=== PATIENT | female | born 1930 | race Caucasian/White ===

== ENCOUNTER 2016-08-01 19:11 | Emergency (ER) | payer MEDICARE, OTHER ==
[~2016-08-01] VITALS: Ht 165.1 cm; Wt 73.6 kg
[~2016-08-01 19:11] MED LIST: ACET325T51 PO; ASPI-973 PO; CHOL10008 PO; CITA10TA9 PO; CLOP75TA28 PO; COD1CAPS16 PO; FE F PO; GABA-502 PO; HYDR-3740 PO; HYDR-3939 PO; HYDR50TA3 PO; ISOS10TA8 PO; METO25TA6 PO; MULT-666 PO; NITR0.4T SL; PANT40TA3 PO; POLY17PO2 PO; SCOP1PAT TRANSDERM; VITA600C3 PO
[2016-08-01 19:24] VITALS: BP 223/87; PULSE 71; RESP 16; O2SAT 96
--- NOTE | 2016-08-01 20:16 | ED.REPORT ---
HPI-General Illness Date of Service Aug 01, 2016 ED Provider: Yifan Null MD 86 year old female with a history of HTN presents to the ER referred by Dr. Virgil Ovalle accompanied by her and daughter due to elevated blood pressure noted at her 1 year-checkup appointment today status post left carotid endarterectomy. She also reports 6 months of headache. Patient denies vision changes, numbness/tingling/weakness, slurred speech, LOC, chest pain, and SOB. Daughter reports recent head trauma status post ground level fall in the shower two days ago. She takes ASA and Plavix. Nursing Notes Stated Complaint: HIGH BLOOD PRESSURE Chief Complaint: General Complaint Nursing Notes Reviewed: Yes Allergies: Coded Allergies: lisinopril (Unverified Allergy, Mild, extremity aching, 10/22/15) pravastatin (Verified Allergy, Mild, extremity aching, 10/22/15) Cephalosporins (Verified Allergy, Unknown, 10/22/15) Penicillins (Verified Allergy, Unknown, 10/22/15) TAPE (Verified Allergy, Unknown, 10/22/15) amlodipine (Unverified Allergy, Unknown, 10/22/15) diltiazem (Unverified Allergy, Unknown, 10/22/15) losartan (Verified Allergy, Unknown, 10/22/15) nifedipine (Verified Allergy, Unknown, 10/22/15) olmesartan medoxomil (Unverified Allergy, Unknown, 10/22/15) trazodone (Verified Allergy, Unknown, 10/22/15) Contrast Media (Unverified Adverse Reaction, Intermediate, fainting, ) has taken dye when given "something beforehand" codeine (Verified Adverse Reaction, Intermediate, Nausea,Vomiting, 10/22/15 ) hydromorphone (Verified Adverse Reaction, Mild, CONFUSION, ANXIETY, RESTLESSNESS, 10/22/15) Scheduled Aspirin (Aspirin) 81 Mg Tablet 81 MG PO DAILY Cholecalciferol (Vitamin D3) (Vitamin D3) 1,000 Unit Tab.chew 1,000 UNIT PO DAILY Citalopram (Citalopram) 10 Mg Tablet 10 MG PO DAILY Clopidogrel (Clopidogrel) 75 Mg Tablet 75 MG PO DAILY Fe Fumarate/Liver Ext/Bcomp&C (Liver with Iron Tablet) 1 Each Tablet 2 EACH PO DAILY Gabapentin (Gabapentin) 300 Mg Capsule 600 MG PO TID Hydralazine (Hydralazine) 25 Mg Tablet 25 MG PO TID Hydrochlorothiazide (Hydrochlorothiazide) 50 Mg Tablet 50 MG PO DAILY Isosorbide MN (Isosorbide MN) 10 Mg Tablet 20 MG PO TID Metoprolol Tartrate (Metoprolol Tartrate) 25 Mg Tablet 25 MG PO BID Multivitamin (Once Daily) 1 Each Tablet 1 EACH PO DAILY Pantoprazole DR (Pantoprazole DR) 40 Mg Tablet.dr 40 MG PO DAILY Vit A & D3 in Cod Liver Oil (Cod Liver Oil Softgel) 1 Each Capsule 1 EACH PO DAILY Vitamin E Acetate (Vitamin E) 600 Unit Capsule 1,200 UNIT PO DAILY Scheduled PRN Acetaminophen (Acetaminophen) 325 Mg Tablet 325 MG PO DAILY PRN PRN For Pain Hydrocodone-Acetaminophen 10-325 mg (Hydrocodone-Acetaminophen 10-325 mg) 1 Each Tablet 1 TABLET PO Q6H PRN PRN For Pain Nitroglycerin SL (Nitrostat) 0.4 Mg Tablet 0.4 MG SL Q5MIN PRN PRN For Chest Pain Polyethylene Glycol 3350 (Polyethylene Glycol 3350) 17 Gm Powd.pack 1 PACKET PO DAILY PRN PRN For Constipation Scopolamine (Transderm-Scop) 1 Each Patch.td72 1 EACH TRANSDERM q72 hours PRN PRN For Nausea General Time Seen by MD: 20:15 Chief Complaint Other (Elevated Blood Pressure) Hx Obtained From: Patient, Spouse, Daughter Arrived By: Walk-in Sudden in Onset?: No Onset Occurred: Onset unknown Associated with: Reports: Headache, Denies: Chest pain, Loss of consciousness, Numb extremities, Shortness of breath, Weak extremity, Weakness Context Related History: Reports Diabetes mellitus Similar Sx Previous: No Past Medical History Past Medical History Notes: Admit in June 2015 for CP/weakness, cardiac w/u negative Past Medical History Significant peripheral vascular disease (patient status post angiography and possible angioplasty in 2008, reportedly complicated by large retroperitoneal hematoma and temporary shock) Carotid stenosis h/o gout H/o esophageal spasms for which she takes occassional nitroglyerin. Reports: Diabetes mellitus, Hypertension Past Surgical History Benign neck mass removed in April 2015 Cardiac cath October 2013 with no occlusive obstructive disease Left carotid endarterectomy at [facility] Colectomy in 1994 for diverticulitis Cholecystectomy Hysterectomy Bladder sling in 1999 Back surgery 2004 Appendectomy 1944 Ectopic status post oophorectomy in 1952 Thyroid surgery Reports: Carotid endarterectomy Family History noncontributory Smoking History Never Smoker Social History Alcohol Use: Denies alcohol use Drug Use: Denies drug use Other Social History: Good social support, , Local resident Ambulatory Status Independent Review of Systems Full Review of Systems Respiratory: Denies: Non-productive cough, Shortness of breath Cardiovascular: Denies: Chest pain Neurologic: Reports: Headache, Denies: Change LOC, Dizziness, Focal weakness, Numbness, Slurred speech, Unable to speak, Vision change, Weakness Complete sys rev & neg: except as marked. Physical Exam Vital Signs Vital Signs Date Time Temp Pulse Resp B/P Pulse Ox O2 Delivery O2 Flow Rate FiO2 08/02/16 00:15 71 18 196/119 96 Room Air 08/01/16 23:28 77 20 250/107 97 Room Air 08/01/16 21:17 185/76 08/01/16 19:24 36.8 71 16 223/87 96 Room Air Initial VS: Reviewed Head / Eyes: Atraumatic, Normocephalic Neck: Supple, Non-tender, Full range of motion Respiratory: Breath sounds normal, Clear to auscultation, No respiratory distress Cardiovascular: Regular rate & rhythm, Heart sounds normal, Intact distal pulses Abdomen / GI: Soft, Non-tender, No guarding, No rebound, No distention Extremities: Vascular intact, Neuro intact, No swelling, No tenderness Skin: Warm, Dry, No cyanosis Neurologic: Alert, Oriented, Nonfocal General/Constitutional: Awake, Alert, Well developed, Well nourished Interpretation & Diagnostics Lab Results Interpretation Result Diagram: 08/01/16204708/01/162047 Test 08/01/16 20:48 White Blood Count 4.3th/mm3 (3.8-10.1) Red Blood Count 4.04mil/mm3 (3.90-5.20) Hemoglobin 13.4g/dL (12.0-15.6) Hematocrit 40.6% (35.0-46.0) Mean Corpuscular Volume 100.5fL (81-100) Mean Corpuscular Hemoglobin 33.2pg (27.0-35.0) Mean Corpuscular Hemoglobin Concent 33.0% (32.0-37.0) Red Cell Distribution Width 12.6% (12.3-15.4) Platelet Count 177bil/L (150-400) Neutrophils (%) (Auto) 61.6% (40-74) Lymphocytes (%) (Auto) 24.2% (14-46) Monocytes (%) (Auto) 10.5% (4-12) Eosinophils (%) (Auto) 3.0% (0-5) Basophils (%) (Auto) 0.5% (0-3) Sodium Level 142mEq/L (134-144) Potassium Level 3.7mEq/L (3.5-5.2) Chloride Level 102mEq/L (97-108) Carbon Dioxide Level 25mmol/L (18-29) Blood Urea Nitrogen 28mg/dL (8-27) Creatinine 0.67mg/dL (0.57-1.00) Estimat Glomerular Filtration Rate 120mL/min (>59) Glucose Level 128mg/dL (60-99) Calcium Level 9.2mg/dL (8.5-10.1) Magnesium Level 1.9mg/dL (1.6-2.6) Total Bilirubin 0.2mg/dL (0.0-1.2) Aspartate Amino Transf (AST/SGOT) 28U/L (0-50) Alanine Aminotransferase (ALT/SGPT) 16U/L (0-32) Alkaline Phosphatase 58U/L (25-165) Troponin T 0.010ug/L (0.0-0.011) Total Protein 7.0g/dL (6.4-8.4) Albumin 4.4g/dL (3.4-5.0) Hold Ron Top Tube Received (Received) ECG Interpretation ECG Interpretation: Sinus rhythm, rate 72 Normal axis Normal intervals BOrderline ST elevation isolated to v2 When compared to ECG 10/22/2015 St elevation in lead 16 is more pronounced Time: 22:00 Interpreted by: ED physician X-Ray Chest Interpretation Chest Xray Interpretation: IMPRESSION: No acute cardiopulmonary disease. Dictated by: Yonatan Mims M.D. on 08/01/2016 at 20:56 Approved by: Yonatan Mims M.D. on 08/01/2016 at 20:57 View: Portable, 1 view Interpretation / Wet Read by: Interpret - Radiologist CT Head Interpretation IMPRESSION: No acute intracranial abnormalities. Moderate periventricular and deep white matter chronic small vessel ischemic change. Dictated by: Yonatan Mims M.D. on 08/01/2016 at 21:35 Approved by: Yonatan Mims M.D. on 08/01/2016 at 21:39 Study: Head CT no contrast Interpretation / Wet Read by: Interpret - Radiologist Re-Eval/Medical Decision Med Decision/Clinical Course Patient is an 86-year-old female with a history of hypertension on multiple antihypertensive medications including metoprolol and hydralazine and presents the emergency department sent in by vascular surgeon due to elevated blood pressure. Upon arrival the patient is hypertensive with a systolic blood pressure of 220 though reports feeling generally symptom-free. EKG was obtained interpreted by myself as documented above. Of note there are no acute significant ischemic changes. CXR: Obtained, reviewed and interpreted by myself shows no evidence of acute infiltrates, effusions or pneumothorax. Cardiac and mediastinal silhouette normal. No bony or soft tissue abnormalities. CT scan of the head does demonstrated no acute intracranial process. Laboratory studies were notable as below: CBC normal Chemistry normal Upon repeat examination the patient had improvement in her blood pressure into the 180s though shortly thereafter patient became significantly hypertensive with a blood pressure in the 250s. She remained completely asymptomatic. Given the degree of the patient's hypertension I opted to administer 20 mg of IV labetalol for the improvement in her blood pressure. The patient had missed her evening blood pressure medications which were administered here in the emergency department. While the patient is quite hypertensive she has no evidence of end organ damage or ischemia. I do not see that the patient's presentation at this time is consistent with hypertensive emergency and is most likely consistent with missing her evening blood pressure medications though she likely requires further titration of her blood pressure medications. At this time, the patient' s blood pressure has improved significantly and I feel that she is appropriate for discharge home. She will take all of her prescribed blood pressure medications and keep a log of her blood pressures. She will return immediately for any signs or symptoms suggestive of hypertensive emergency and these were reviewed in detail. She will follow-up first thing next week with her primary care physician to discuss blood pressure management. She was discharged in good condition. Follow-up and return precautions were reviewed in detail and she verbalizes understanding and agreement with the plan. Source of Hx: Old records Time of Eval: 23:10 Re-Evaluation/Progress Note: Discussed lab and radiology results and plan to discharge. Patient is amenable to the plan. Return precautions given. All other questions addressed. Counseled Regarding: Diagnosis, Lab results, Need for follow-up, When/why to return to ED Discharge & Departure Primary Impression: Hypertensive urgency Additional Impressions: Noncompliance with medication regimen Headache Headache type: unspecified Headache chronicity pattern: unspecified pattern Intractability: not intractable Qualified Code: R51 - Headache Disposition: Home Discharge Condition All VS Reviewed: Yes Condition: Stable Patient Instructions: Chronic Hypertension (DC) Additional Instructions: Thank you for seeking care at emergency room. It is difficult for us to make definitive diagnoses in the ED but we believe that you are experiencing symptoms related to your elevated blood pressure. Our primary goal today in the ED was to evaluate you for any life-threatening conditions. Your evaluation was reassuring. Keep a record of your blood pressure for the next few weeks. You should follow-up with your primary doctor next week. You should return to the ED immediately if you develop headache, blurred vision , chest pain, shortness of breath, or any other concerning signs or symptoms. Thank you for letting us partake in your care today. Referrals: Lopez Avilez DO (PCP) Skylar Attestation Portions of this note were transcribed by Kali Palacios. I, Dr. Null, personally performed the history, physical exam and medical decision-making; I reviewed and confirmed the accuracy of the information in the transcribed note. Signed by: Skylar Collins, 08/01/2016 and 23:27 copies to: Lopez Avilez Beck O MD Aug 01, 2016 20:16 KALI PALACIOS Aug 01, 2016 21:12
--- NOTE | 2016-08-01 20:57 | DRSVH ---
PROCEDURE: X-RAY CHEST ONE VIEW, PORTABLE ([id number]) INDICATIONS: 86 year-old female with chest pain. TECHNIQUE: One view of the chest was acquired. COMPARISON: [facility], CR, XR CHEST 1VW (PORTABLE), 10/22/2015, 10:31. [facility], CR, XR CHEST 1VW (PORTABLE), 06/24/2015, 20:13. [facility], CR, CHEST 1VW (PORTAB LE), 11/22/2013, 11:00. FINDINGS: Surgical changes and devices: None. Lungs and pleura: No pleural effusions or pneumothorax. Lungs are clear. Mediastinum: Mediastinal contours appear normal. Heart size is normal. There is aortic atheroscler osis. Bones and chest wall: No suspicious bony lesions. Overlying soft tissues appear unremarkable. IMPRESSION: No acute cardiopulmonary disease. Dictated by: Yonatan Mims M.D. on 08/01/2016 at 20:56 Approved by: Yonatan Mims M.D. on 08/01/2016 at 20:57
[2016-08-01 21:10] LABS: BASOPHILS % (AUTO) 0.5 % (0-3); MONOCYTES % (AUTO) 10.5 % (4-12); Mean Corpuscular Hemoglobin 33.2 pg (27.0-35.0); Mean Corpuscular Volume 100.5 fL (81-100); NEUTROPHILS % (AUTO) 61.6 % (40-74); Platelet Count 177 bil/L (150-400)
[2016-08-01 21:17] VITALS: BP 185/76
[2016-08-01 21:35] LABS: TROPONIN T 0.01 ug/L (0.0-0.011)
--- NOTE | 2016-08-01 21:40 | DRSVH ---
PROCEDURE: CT BRAIN WITHOUT CONTRAST ([id number]) INDICATIONS: 86 year-old female with headache after fall 2 days ago. TECHNIQUE: Noncontrast 4.5 mm thick angled axial sections acquired from the foramen magnum to the vertex, with c oronal reformats. COMPARISON: [facility], CT, CT BRAIN WO CON, 10/22/2015, 11:06. FINDINGS: Image quality: Excellent. CSF spaces: Basal cisterns are patent. No extra-axial fluid collections. The ventricles are symmet madeline in size and shape. Brain: No intracranial bleeds or masses. There are moderate periventricular and deep white matter c hronic small vessel ischemic changes. There is intracranial internal carotid artery atherosclerosis. Skull and face: Calvarium and visualized facial bones appear intact, without suspicious lesions. Sinuses: Visualized sinuses and mastoids are clear, status post bilateral functional endoscopic sinu s surgeries. IMPRESSION: No acute intracranial abnormalities. Moderate periventricular and deep white matter chron ic small vessel ischemic change. Dictated by: Yonatan Mims M.D. on 08/01/2016 at 21:35 Approved by: Yonatan Mims M.D. on 08/01/2016 at 21:39
[2016-08-01 21:46] LABS: Magnesium 1.9 mg/dL (1.6-2.6)
[2016-08-01] MEDS ORDERED: Labetalol 5 mg/mL 4 mL Inj IVPUSH ONE (23:25)
[2016-08-01] MEDS ORDERED: MeTOProlol XL 25 mg ER24 Tablet PO ONE (23:25)
[2016-08-01 23:28] VITALS: BP 250/107; PULSE 77; RESP 20; O2SAT 97
[2016-08-02 00:15] VITALS: BP 196/119; PULSE 71; RESP 18; O2SAT 96
== END 2016-08-02 00:15 | disposition home or self-care (01) ==
LOC: SED 19:11
DX: I10 Essential (primary) hypertension (principal); R51 Headache; Z91.19 Patient's noncompliance with other medical treatment and regimen; E11.9 Type 2 diabetes mellitus without complications; Z79.82 Long term (current) use of aspirin; Z90.710 Acquired absence of both cervix and uterus; Z88.0 Allergy status to penicillin; Z88.1 Allergy status to other antibiotic agents; Z88.5 Allergy status to narcotic agent; Z88.8 Allergy status to other drugs, medicaments and biological substances

== ENCOUNTER 2016-08-02 12:58 | Emergency (ER) | payer MEDICARE, OTHER ==
[2016-08-02 13:02] VITALS: BP 224/79; PULSE 78; RESP 20; O2SAT 97
--- NOTE | 2016-08-02 13:06 | ED.REPORT ---
HPI-Chest Pain 40 and Over Date of Service Aug 02, 2016 ED Provider: Otoniel Contreras MD Patient is an 86 year old female who presents to the ED via EMS complaining of chest pressure onset 4 hours ago. Associated symptoms include headache. When she took her blood pressure at home it was 238/113. She denies SOB, blurry vision, speech changes, weakness, numbness, or any other symptoms. She was given nitro and aspirin en route by medics. She was seen in the emergency department last night when she was seen by Dr. Null for hypertension. Nursing Notes Stated Complaint: CHEST PRESSURE Chief Complaint: General Complaint Nursing Notes Reviewed: Yes Allergies: Coded Allergies: lisinopril (Unverified Allergy, Mild, extremity aching, 08/02/16) pravastatin (Verified Allergy, Mild, extremity aching, 08/02/16) Cephalosporins (Verified Allergy, Unknown, 08/02/16) Penicillins (Verified Allergy, Unknown, 08/02/16) TAPE (Verified Allergy, Unknown, 08/02/16) amlodipine (Unverified Allergy, Unknown, 08/02/16) diltiazem (Unverified Allergy, Unknown, 08/02/16) losartan (Verified Allergy, Unknown, 08/02/16) nifedipine (Verified Allergy, Unknown, 08/02/16) olmesartan medoxomil (Unverified Allergy, Unknown, 08/02/16) trazodone (Verified Allergy, Unknown, 08/02/16) Contrast Media (Unverified Adverse Reaction, Intermediate, fainting, ) has taken dye when given "something beforehand" codeine (Verified Adverse Reaction, Intermediate, Nausea,Vomiting, 08/02/16) hydromorphone (Verified Adverse Reaction, Mild, CONFUSION, ANXIETY, RESTLESSNESS, 08/02/16) Scheduled Aspirin (Aspirin) 81 Mg Tablet 81 MG PO DAILY Cholecalciferol (Vitamin D3) (Vitamin D3) 1,000 Unit Tab.chew 1,000 UNIT PO DAILY Citalopram (Citalopram) 10 Mg Tablet 10 MG PO DAILY Clopidogrel (Clopidogrel) 75 Mg Tablet 75 MG PO DAILY Fe Fumarate/Liver Ext/Bcomp&C (Liver with Iron Tablet) 1 Each Tablet 2 EACH PO DAILY Gabapentin (Gabapentin) 300 Mg Capsule 600 MG PO TID Hydralazine (Hydralazine) 25 Mg Tablet 25 MG PO TID Hydrochlorothiazide (Hydrochlorothiazide) 50 Mg Tablet 50 MG PO DAILY Isosorbide MN (Isosorbide MN) 10 Mg Tablet 20 MG PO TID Metoprolol Tartrate (Metoprolol Tartrate) 25 Mg Tablet 25 MG PO BID Multivitamin (Once Daily) 1 Each Tablet 1 EACH PO DAILY Pantoprazole DR (Pantoprazole DR) 40 Mg Tablet.dr 40 MG PO DAILY Vit A & D3 in Cod Liver Oil (Cod Liver Oil Softgel) 1 Each Capsule 1 EACH PO DAILY Vitamin E Acetate (Vitamin E) 600 Unit Capsule 1,200 UNIT PO DAILY Scheduled PRN Acetaminophen (Acetaminophen) 325 Mg Tablet 325 MG PO DAILY PRN PRN For Pain Hydrocodone-Acetaminophen 10-325 mg (Hydrocodone-Acetaminophen 10-325 mg) 1 Each Tablet 1 TABLET PO Q6H PRN PRN For Pain Nitroglycerin SL (Nitrostat) 0.4 Mg Tablet 0.4 MG SL Q5MIN PRN PRN For Chest Pain Polyethylene Glycol 3350 (Polyethylene Glycol 3350) 17 Gm Powd.pack 1 PACKET PO DAILY PRN PRN For Constipation Scopolamine (Transderm-Scop) 1 Each Patch.td72 1 EACH TRANSDERM q72 hours PRN PRN For Nausea General Time Seen by MD: 13:04 Chief Complaint Chest pressure Hx Obtained From: Patient, Other family... Arrived By: Ambulance Sudden in Onset?: Yes Onset Occurred: 1 - 4 hours ago Recent Healthcare: Recent doctor visit Risk Factors )( CAD Risk Stratification Diabetes mellitus HypertensionNo Hyperlipidemia, No Smoking Risk factors reviewed )( TAD Risk Stratification HypertensionNo High intensity wt lifting, No Risk factors reviewed )( PE Risk Stratification No , No Previous DVT, No Previous PE, No Surgery Last 60 Days Risk factors reviewed Past Medical History Past Medical History Notes: Admit in June 2015 for CP/weakness, cardiac w/u negative Past Medical History Significant peripheral vascular disease (patient status post angiography and possible angioplasty in 2008, reportedly complicated by large retroperitoneal hematoma and temporary shock) Carotid stenosis h/o gout H/o esophageal spasms for which she takes occassional nitroglyerin. Reports: Diabetes mellitus, Hypertension Past Surgical History Benign neck mass removed in April 2015 Cardiac cath October 2013 with no occlusive obstructive disease Left carotid endarterectomy at [facility] Colectomy in 1994 for diverticulitis Cholecystectomy Hysterectomy Bladder sling in 1999 Back surgery 2005 Appendectomy 1945 Ectopic status post oophorectomy in 1951 Thyroid surgery Reports: Carotid endarterectomy Family History noncontributory Smoking History Never Smoker Social History Alcohol Use: Denies alcohol use Drug Use: Denies drug use Other Social History: Good social support, , Local resident Ambulatory Status Independent Review of Systems Respiratory: Denies: Shortness of breath Cardiovascular: Reports: Chest pain (Pressure ) Neurologic: Reports: Headache, Denies: Numbness, Slurred speech, Weakness Complete sys rev & neg: except as marked. Eyes: Denies: Blurred bilateral Physical Exam Initial Vital Signs Vital Signs (First) Date Time Temp Pulse Resp B/P Pulse Ox O2 Delivery O2 Flow Rate FiO2 08/02/16 13:02 37.1 78 20 224/79 97 Room Air Initial VS: Reviewed Head / Eyes: Atraumatic, Normocephalic Skin: Warm Neurologic: Alert, Oriented, Nonfocal Psychiatric: Mood/affect normal, Behavior normal, Normal thought content General/Constitutional: Awake, Alert, Well developed Respiratory / Chest: Breath sounds NL, Breath sounds = bilat, No respiratory distress Heart Sounds / Murmur: Positive: Murmur present... faint holosystolic murmur at left upper border Abdomen: Soft, Non-tender Neurologic: Oriented X3, Speech NL, CN II - XII intact Interpretation & Diagnostics Lab Results Interpretation Result Diagram: 08/02/16 1343 08/02/16 1343 Test 08/02/16 13:43 White Blood Count 4.9th/mm3 (3.8-10.1) Red Blood Count 4.15mil/mm3 (3.90-5.20) Hemoglobin 13.3g/dL (12.0-15.6) Hematocrit 41.2% (35.0-46.0) Mean Corpuscular Volume 99.3fL (81-100) Mean Corpuscular Hemoglobin 32.0pg (27.0-35.0) Mean Corpuscular Hemoglobin Concent 32.3% (32.0-37.0) Red Cell Distribution Width 12.7% (12.3-15.4) Platelet Count 168bil/L (150-400) Neutrophils (%) (Auto) 68.3% (40-74) Lymphocytes (%) (Auto) 21.3% (14-46) Monocytes (%) (Auto) 7.8% (4-12) Eosinophils (%) (Auto) 2.0% (0-5) Basophils (%) (Auto) 0.4% (0-3) Sodium Level 139mEq/L (134-144) Potassium Level 3.9mEq/L (3.5-5.2) Chloride Level 100mEq/L (97-108) Carbon Dioxide Level 22mmol/L (18-29) Blood Urea Nitrogen 19mg/dL (8-27) Creatinine 0.56mg/dL (0.57-1.00) Estimat Glomerular Filtration Rate 147mL/min (>59) Glucose Level 139mg/dL (60-99) Calcium Level 9.5mg/dL (8.5-10.1) Magnesium Level 1.7mg/dL (1.6-2.6) Total Bilirubin 0.5mg/dL (0.0-1.2) Aspartate Amino Transf (AST/SGOT) 28U/L (0-50) Alanine Aminotransferase (ALT/SGPT) 15U/L (0-32) Alkaline Phosphatase 50U/L (25-165) Troponin T < 0.010ug/L (0.0-0.011) Total Protein 6.6g/dL (6.4-8.4) Albumin 4.2g/dL (3.4-5.0) Hold Ron Top Tube Received (Received) ECG Interpretation ECG Interpretation: Sinus rate 69 LVH Q waves in V1-v3 unchanged from old Time: 13:21 Interpreted by: ED physician X-Ray Chest Interpretation Chest Xray Interpretation: IMPRESSION: No acute process. Dictated by: Gosia Levin M.D. on 08/02/2016 at 14:50 Approved by: Gosia Levin M.D. on 08/02/2016 at 14:50 View: Portable, 1 view Interpretation / Wet Read by: Interpret - Radiologist Re-Eval/Medical Decision Med Decision/Clinical Course 86-year-old female history of hypertension presenting because of elevated blood pressure. She reports she took it at home and it was systolic 200s. She was seen for hypertensive urgency last night and discharged home. She reports a headache earlier today. He also reports an episode of chest tightness this morning. EKG no signs ischemia. Troponins are negative 6 hours after episode. Her blood pressure initially was systolic 220s. She was given 1 dose of hydralazine 10 mg and her blood pressure improved to 130 systolic over 80s. Her headache resolved with Tylenol prior to getting any blood pressure intervention. No signs of hypertensive emergency. No signs of stroke. Normal neurological exam. I discussed with patient that we may admit her for observation patient requests to go home. She will follow up with her primary doctor on Thursday. I did tell her she may increase her hydralazine dose from 25 mg to 50 mg for blood pressure is elevated tomorrow. Parameters given. She denies return immediately should she develop any headache, visual changes, chest pain, shortness breath, neurological deficits or any other new or worsening symptoms. She agrees with plan. Time of Eval: 15:00 Re-Evaluation/Progress Note: Rechecked patient. Discussed lab and imaging results. Discussed plan for discharge. Patient understands and agrees with plan. All questions addressed at this time. Counseled Regarding: Diagnosis, Lab results, Need for follow-up, When/why to return to ED Discharge & Departure Primary Impression: Hypertensive urgency Disposition: Home Discharge Condition All VS Reviewed: Yes Condition: Improved Additional Instructions: Thank you for entrusting us with your care today. Your labs and imaging results are reassuring. Please follow up with your primary care provider on Thursday. Please increase your Hydralazine to 25 mg, 4 times a day (or take 50 mg to replace one of your 25 mg doses) tomorrow if you notice your systolic blood pressure is over 200 or your diastolic is over 100. Return to the emergency department if you experience any new or worsening symptoms including headache, difficulty speaking or swallowing, weakness, numbness, tingling, chest pain, difficulty breathing, or vision changes. Referrals: Lopez Avilez DO (PCP) Scribe Attestation Portions of this note were transcribed by Trent Shoemaker. I, Dr. Contreras personally performed the history, physical exam and medical decision-making; I reviewed and confirmed the accuracy of the information in the transcribed note. Signed by: Trent Shoemaker 08/02/16, 1511 copies to: Lopez Avilez Ben M MD Aug 02, 2016 13:06 TRENT SHOEMAKER Aug 02, 2016 13:58
[2016-08-02] MEDS ORDERED: hydrALAZINE 20 mg/mL Inj IV ONE (13:55)
[2016-08-02 14:16] LABS: BASOPHILS % (AUTO) 0.4 % (0-3); MONOCYTES % (AUTO) 7.8 % (4-12); Mean Corpuscular Volume 99.3 fL (81-100); NEUTROPHILS % (AUTO) 68.3 % (40-74); Platelet Count 168 bil/L (150-400)
[2016-08-02 14:30] VITALS: BP 169/50; PULSE 62; RESP 16; O2SAT 95
[2016-08-02 14:55] LABS: Magnesium 1.7 mg/dL (1.6-2.6)
--- NOTE | 2016-08-02 14:57 | DRSVH ---
PROCEDURE: X-RAY CHEST ONE VIEW, PORTABLE ([id number]) INDICATIONS: chest pain TECHNIQUE: One view of the chest was acquired. COMPARISON: [facility], CR, XR CHEST 1VW (PORTABLE), 08/01/2016, 20:17. [facility], CR, XR CHEST 1VW (PORTABLE), 10/22/2015, 10:31. [facility], CR, XR CHEST 1VW (POR TABLE), 06/24/2015, 20:13. FINDINGS: Surgical changes and devices: None. Lungs and pleura: No pleural effusions or pneumothorax. Lungs are clear. Mediastinum: Mediastinal contours appear normal. Heart size is normal. Bones and chest wall: No suspicious bony lesions. Overlying soft tissues appear unremarkable. IMPRESSION: No acute process. Dictated by: Gosia Levin M.D. on 08/02/2016 at 14:50 Approved by: Gosia Levin M.D. on 08/02/2016 at 14:50
[2016-08-02 14:59] LABS: TROPONIN T < 0.010 ug/L (0.0-0.011)
[2016-08-02 16:01] VITALS: BP 152/45; PULSE 70; RESP 12; O2SAT 95
== END 2016-08-02 16:02 | disposition home or self-care (01) ==
LOC: SED 12:58
DX: I16.0 Hypertensive urgency (principal); E11.9 Type 2 diabetes mellitus without complications; E78.5 Hyperlipidemia, unspecified; Z85.89 Personal history of malignant neoplasm of other organs and systems; Z90.710 Acquired absence of both cervix and uterus; Z79.82 Long term (current) use of aspirin; Z88.0 Allergy status to penicillin; Z88.5 Allergy status to narcotic agent; Z88.8 Allergy status to other drugs, medicaments and biological substances; Z91.041 Radiographic dye allergy status
CPT/HCPCS: 36415; 71010; 80053; 83735; 84484; 85025; 93005; 96374; 99285; J0360

== ENCOUNTER 2016-08-03 13:39 | Observation (INO) | payer MEDICARE, OTHER ==
[~2016-08-03] VITALS: Ht 167.6 cm; Wt 72.3 kg
[2016-08-03] VITALS (8 sets, daily range): BP systolic 169–218; BP diastolic 56–90; PULSE 64–87; RESP 11–18; O2SAT 93–99
--- NOTE | 2016-08-03 13:41 | ED.REPORT ---
HPI-General Illness Date of Service Aug 03, 2016 ED Provider: ErnulMatty silva Patient is an 86 year old female on Plavix who has been seen 3 times now in the last 3 days in the ED for the same symptoms. Today she presents to the ED complaining of a severe headache. She reports that her headache is constant and that the severity varies. Her blood pressure has been high despite taking an extra dose of her hydralazine today. Associated symptoms include chills, mild chest discomfort, and nausea. She denies cough, runny nose, fever, vision changes, or any other symptoms. She reports that she has been under more stress lately, especially since her was admitted to the hospital yesterday after a syncopal episode. During her previous visits she did not report that she fell Thursday in the bathroom and hit the L side of her head on the heat register which is low to the ground on the wall. She did not lose consciousness and she denies any neck pain. After further interviewing her daughter it was discovered that she ran out of her hydralazine earlier in the week and only had it refilled on Thursday. She also had a ground-level fall earlier in the week. She denied loss of consciousness. She does not know why she fell. Nursing Notes Stated Complaint: HEAD PAIN,NAUSEA,HIGH BP,COLD Nursing Notes Reviewed: Yes Allergies: Coded Allergies: lisinopril (Unverified Allergy, Mild, extremity aching, 08/02/16) pravastatin (Verified Allergy, Mild, extremity aching, 08/02/16) Cephalosporins (Verified Allergy, Unknown, 08/02/16) Penicillins (Verified Allergy, Unknown, 08/02/16) TAPE (Verified Allergy, Unknown, 08/02/16) amlodipine (Unverified Allergy, Unknown, 08/02/16) diltiazem (Unverified Allergy, Unknown, 08/02/16) losartan (Verified Allergy, Unknown, 08/02/16) nifedipine (Verified Allergy, Unknown, 08/02/16) olmesartan medoxomil (Unverified Allergy, Unknown, 08/02/16) trazodone (Verified Allergy, Unknown, 08/02/16) Contrast Media (Unverified Adverse Reaction, Intermediate, fainting, ) has taken dye when given "something beforehand" codeine (Verified Adverse Reaction, Intermediate, Nausea,Vomiting, 08/02/16) hydromorphone (Verified Adverse Reaction, Mild, CONFUSION, ANXIETY, RESTLESSNESS, 08/02/16) Scheduled Aspirin (Aspirin) 81 Mg Tablet 81 MG PO DAILY Cholecalciferol (Vitamin D3) (Vitamin D3) 1,000 Unit Tab.chew 1,000 UNIT PO DAILY Citalopram (Citalopram) 10 Mg Tablet 10 MG PO DAILY Clopidogrel (Clopidogrel) 75 Mg Tablet 75 MG PO DAILY Fe Fumarate/Liver Ext/Bcomp&C (Liver with Iron Tablet) 1 Each Tablet 2 EACH PO DAILY Gabapentin (Gabapentin) 300 Mg Capsule 600 MG PO TID Hydralazine (Hydralazine) 25 Mg Tablet 25 MG PO TID Hydrochlorothiazide (Hydrochlorothiazide) 50 Mg Tablet 50 MG PO DAILY Isosorbide MN (Isosorbide MN) 10 Mg Tablet 20 MG PO TID Metoprolol Tartrate (Metoprolol Tartrate) 25 Mg Tablet 25 MG PO BID Multivitamin (Once Daily) 1 Each Tablet 1 EACH PO DAILY Pantoprazole DR (Pantoprazole DR) 40 Mg Tablet.dr 40 MG PO DAILY Vit A & D3 in Cod Liver Oil (Cod Liver Oil Softgel) 1 Each Capsule 1 EACH PO DAILY Vitamin E Acetate (Vitamin E) 600 Unit Capsule 1,200 UNIT PO DAILY Scheduled PRN Acetaminophen (Acetaminophen) 325 Mg Tablet 325 MG PO DAILY PRN PRN For Pain Hydrocodone-Acetaminophen 10-325 mg (Hydrocodone-Acetaminophen 10-325 mg) 1 Each Tablet 1 TABLET PO Q6H PRN PRN For Pain Nitroglycerin SL (Nitrostat) 0.4 Mg Tablet 0.4 MG SL Q5MIN PRN PRN For Chest Pain Polyethylene Glycol 3350 (Polyethylene Glycol 3350) 17 Gm Powd.pack 1 PACKET PO DAILY PRN PRN For Constipation Scopolamine (Transderm-Scop) 1 Each Patch.td72 1 EACH TRANSDERM q72 hours PRN PRN For Nausea General Time Seen by MD: 13:40 Chief Complaint Headache Hx Obtained From: Patient, Daughter Arrived By: Walk-in Recent Healthcare: Recent doctor visit, Recent testing, Prior workup Similar Sx Previous: Yes Past Medical History Past Medical History Notes: Admit in June 2015 for CP/weakness, cardiac w/u negative Patient is FULL CODE Past Medical History Significant peripheral vascular disease (patient status post angiography and possible angioplasty in 2008, reportedly complicated by large retroperitoneal hematoma and temporary shock) Carotid stenosis h/o gout H/o esophageal spasms for which she takes occassional nitroglyerin. Reports: Diabetes mellitus, Hypertension Past Surgical History Benign neck mass removed in April 2015 Cardiac cath October 2013 with no occlusive obstructive disease Left carotid endarterectomy at [facility] Colectomy in 1994 for diverticulitis Cholecystectomy Hysterectomy Bladder sling in 1999 Back surgery 2004 Appendectomy 1944 Ectopic status post oophorectomy in 1951 Thyroid surgery Reports: Carotid endarterectomy Family History noncontributory Smoking History Never Smoker Social History Alcohol Use: Denies alcohol use Drug Use: Denies drug use Other Social History: Good social support, , Local resident Ambulatory Status Independent Review of Systems Full Review of Systems Constitutional: Reports: Chills, Denies: Fever Respiratory: Denies: Non-productive cough Cardiovascular: Reports: Chest pain GI: Reports: Nausea, Denies: Vomiting Musculoskeletal: Denies: Neck pain Allergy / Immune: Denies: Rhinorrhea Neurologic: Reports: Headache, Denies: Change LOC, Numbness, Vision change Complete sys rev & neg: except as marked. Physical Exam Vital Signs Vital Signs Date Time Temp Pulse Resp B/P Pulse Ox O2 Delivery O2 Flow Rate FiO2 08/03/16 17:01 72 16 169/56 93 Room Air 08/03/16 15:34 67 11 183/56 96 Room Air 08/03/16 14:49 69 16 218/73 95 Room Air 08/03/16 13:47 36.7 64 13 216/64 99 Room Air Initial VS: Reviewed Skin: Warm, Dry Neurologic: Alert, Oriented, Nonfocal Psychiatric: Mood/affect normal, Behavior normal, Normal thought content General/Constitutional: Awake, Alert, Well developed Head / Eyes: Normocephalic, PERRL Bruise on L side of head by outside of eyebrow Respiratory / Chest: No respiratory distress Cardiovascular: Heart rate NL, Regular rhythm Lower Ext Edema: Positive: Bilateral 1+ Abdomen: Soft, Non-tender Neurologic: Oriented X3, Speech NL Sligthly tremulous Interpretation & Diagnostics Lab Results Interpretation Result Diagram: 08/03/16 1410 08/03/16 1410 Test 08/03/16 14:10 08/03/16 15:06 White Blood Count 5.0th/mm3 (3.8-10.1) Red Blood Count 4.26mil/mm3 (3.90-5.20) Hemoglobin 13.6g/dL (12.0-15.6) Hematocrit 42.4% (35.0-46.0) Mean Corpuscular Volume 99.5fL (81-100) Mean Corpuscular Hemoglobin 31.9pg (27.0-35.0) Mean Corpuscular Hemoglobin Concent 32.1% (32.0-37.0) Red Cell Distribution Width 12.9% (12.3-15.4) Platelet Count 180bil/L (150-400) Neutrophils (%) (Auto) 68.7% (40-74) Lymphocytes (%) (Auto) 19.8% (14-46) Monocytes (%) (Auto) 8.7% (4-12) Eosinophils (%) (Auto) 2.4% (0-5) Basophils (%) (Auto) 0.2% (0-3) Sodium Level 135mEq/L (134-144) Potassium Level 4.0mEq/L (3.5-5.2) Chloride Level 95mEq/L (97-108) Carbon Dioxide Level 22mmol/L (18-29) Blood Urea Nitrogen 19mg/dL (8-27) Creatinine 0.74mg/dL (0.57-1.00) Estimat Glomerular Filtration Rate 107mL/min (>59) Glucose Level 128mg/dL (60-99) Calcium Level 10.1mg/dL (8.5-10.1) Total Bilirubin 0.6mg/dL (0.0-1.2) Aspartate Amino Transf (AST/SGOT) 28U/L (0-50) Alanine Aminotransferase (ALT/SGPT) 17U/L (0-32) Alkaline Phosphatase 56U/L (25-165) Troponin T < 0.010ug/L (0.0-0.011) Total Protein 7.2g/dL (6.4-8.4) Albumin 4.7g/dL (3.4-5.0) Hold Ron Top Tube Received (Received) Hold Urine Received (Received) ECG Interpretation ECG Interpretation: Sinus rate 64 Borderline prolonged MA interval Anterior infarct, old Time: 14:43 Interpreted by: ED physician Re-Eval/Medical Decision Med Decision/Clinical Course Workup throughout the last 3 days has been reassuring and negative. She appears well but tired. She says that her headache her up much of the night last night. I am concerned for 3 ER visits in 3 days with severe headache and persistent hypertension. Her blood pressure is now adequately controlled with a systolic pressure in the 160s but her headache persists. I think that the most likely explanation is rebound phenomenon has of the sudden and abrupt discontinuance unintentionally of hydralazine earlier in the week. I think reinstitution of regular medications should produce a desired result. I think observation overnight is appropriate given the severity of her headache despite fairly aggressive treatment here in the emergency department. Time of Eval: 15:15 Patient Status: Condition unchanged Re-Evaluation/Progress Note: Rechecked patient. Her headache is not much better. Will give another round of medications. Time of Eval: 16:07 Patient Status: Condition unchanged Re-Evaluation/Progress Note: Rechecked patient. Headache is unchanged. Time of Eval: 16:46 Re-Evaluation/Progress Note: Rechecked patient. Her headache is slightly better. Discussed plan for admission. Patient understands and agrees with plan. All questions addressed at this time. Consultation : Referral / Consult Name: Devan Cadena MD Consulted With: Hospitalist Call Returned at: 17:21 Detonator Maker: Will see patient, Agrees with eval, Agrees with plan, Accepts admit Note: Discussed patient's case. Accepts admit. Counseled Regarding: Diagnosis, Lab results, Need for admission Discharge & Departure Primary Impression: Hypertensive urgency Additional Impression: Headache Headache type: unspecified Headache chronicity pattern: unspecified pattern Intractability: not intractable Qualified Code: R51 - Headache Disposition: ADMITTED TO HOSPITAL Referrals: Lopez Avilez DO (PCP) Scribe Attestation Portions of this note were transcribed by Trent Shoemaker. I, Dr. Zarate personally performed the history, physical exam and medical decision-making; I reviewed and confirmed the accuracy of the information in the transcribed note. Signed by: Trent Shoemaker 08/03/2016, 1604 copies to: Lopez Avilez Kirk H MD Aug 03, 2016 13:41 TRENT SHOEMAKER Aug 03, 2016 14:14
[2016-08-03] MEDS ORDERED: HYDROcodone-APAP 10-325 mg PO ONE (14:15)
[2016-08-03] MEDS ORDERED: hydrALAZINE 20 mg/mL Inj IV ONE ×2 (14:20→15:25)
[2016-08-03] MEDS ORDERED: Ondansetron 2 mg/mL 2 mL Inj IVPUSH ONE (14:20)
[2016-08-03 14:26] LABS: BASOPHILS % (AUTO) 0.2 % (0-3); EOSINOPHILS % (AUTO) 2.4 % (0-5); MONOCYTES % (AUTO) 8.7 % (4-12); Mean Corpuscular Hemoglobin 31.9 pg (27.0-35.0); Mean Corpuscular Volume 99.5 fL (81-100); NEUTROPHILS % (AUTO) 68.7 % (40-74); Platelet Count 180 bil/L (150-400)
[2016-08-03 15:15] LABS: TROPONIN T < 0.010 ug/L (0.0-0.011)
[2016-08-03] MEDS ORDERED: Dexamethasone 10 mg/mL Inj IVPUSH ONE (15:20)
[2016-08-03] MEDS ORDERED: MetoCLOpramide 5 mg/mL 2 mL Inj IVPUSH ONE (15:20)
[2016-08-03] MEDS ORDERED: Ketorolac 15 mg/mL Inj IVPUSH ONE (15:20)
[2016-08-03] MEDS ORDERED: Isosorbide Mononitrate 30 mg ER24 Tablet PO ONE (15:25)
[2016-08-03] MEDS ORDERED: Ondansetron 2 mg/mL 2 mL Inj IVPUSH PRN ×2 (17:35→17:45)
[2016-08-03] MEDS ORDERED: HYDROcodone-APAP 10-325 mg PO PRN (17:35)
[2016-08-03] MEDS ORDERED: Alum-Mag Hydrox-Simeth 30 mL Suspension PO PRN (17:35)
[2016-08-03] MEDS ORDERED: Polyethylene Glycol (PEG) 17 Gm Powder PO PRN (17:45)
--- NOTE | 2016-08-03 18:15 | PCM.HPMED ---
Subjective Date of Service Aug 03, 2016 Primary Provider: Admitting Physician: Devan Cadena MD Primary Care Physician: Lopez Avilez DO Attending Physician: Devan Cadena MD Admit Status: From the Emergency Department, 23-Hour Observation, Admit to Yellow Team Chief Complaint: Headache and uncontrolled hypertension History of Present Illness: This is an 86-year-old female with a long history of recalcitrant hypertension. This is her third ER visit in 3 days for headache and hypertension which is uncontrolled. She was seen by her vascular surgeon on Thursday and noted to have a systolic BP of 240 and corrected to the ED. There she was given medication and sent out. She was back to the ER yesterday with ongoing hypertension with a home reading of over 200 systolic. She was again treated and sent out and return today again with ongoing uncontrolled hypertension. Her headache has been going on for several days and is described as a global throbbing. No photophobia or history of headache. No nausea or vomiting. No visual changes. She is having some tingling of both hands but denies any numbness or weakness of arms or legs. No difficulty with speaking. CT scan 2 nights ago was unremarkable. This was not repeated today. She notes that she had run out of her hydralazine for several days but apparently has been taking for the last day or 2 days. It is possible there is a medication compliance issue although she did test today that she is taking her medications. Her baseline medications for blood pressure are hydralazine 25 mg 3 times a day, hydrochlorothiazide 50 mg a day isosorbide mononitrate 20 mg 3 times a day and metoprolol tartrate 25 mg twice a day. Of note a recent stressor is her 's admission to this hospital 2 days ago for possible seizure. He is still in the hospital until probably tomorrow morning. He is doing well however. Review of Systems: No visual changes or hearing loss. No fevers chills rhinorrhea cough or sore throat. No nausea vomiting abdominal pain and chest pain dyspnea orthopnea pedal edema. No difficulty with urination. All other systems are reviewed and otherwise unremarkable. Except as noted in the history of present illness. Allergies Coded Allergies: lisinopril (Unverified Allergy, Mild, extremity aching, 08/02/16) pravastatin (Verified Allergy, Mild, extremity aching, 08/02/16) Cephalosporins (Verified Allergy, Unknown, 08/02/16) Penicillins (Verified Allergy, Unknown, 08/02/16) TAPE (Verified Allergy, Unknown, 08/02/16) amlodipine (Unverified Allergy, Unknown, 08/02/16) diltiazem (Unverified Allergy, Unknown, 08/02/16) losartan (Verified Allergy, Unknown, 08/02/16) nifedipine (Verified Allergy, Unknown, 08/02/16) olmesartan medoxomil (Unverified Allergy, Unknown, 08/02/16) trazodone (Verified Allergy, Unknown, 08/02/16) Contrast Media (Unverified Adverse Reaction, Intermediate, fainting, ) has taken dye when given "something beforehand" codeine (Verified Adverse Reaction, Intermediate, Nausea,Vomiting, 08/02/16) hydromorphone (Verified Adverse Reaction, Mild, CONFUSION, ANXIETY, RESTLESSNESS, 08/02/16) Home Medications Include citalopram 10 mg a day, Plavix 75 mg a day, gabapentin 6 mg 3 times a day, hydralazine 25 mg 3 times a day, chlorothiazide 50 mg once a day, isosorbide mononitrate 20 mg 3 times a day and metoprolol 25 mg twice a day. She also takes aspirin 81 mg a day. PMH 1. Hypertension 2. Generalized anxiety 3. 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 Peripheral arterial disease with history of popliteal bypass on the right leg. 5. Peripheral neuropathy, response to gabapentin Surgical History Carotid endarterectomy Hysterectomy Partial colectomy for diverticulitis Appendectomy Cholecystectomy Family History Positive for hypertension in her mother Social History Occupation: retired Hx Alcohol Use: No Hx Substance Use: No Hx Tobacco Use: No Smoking Status: Never Smoker Living Arrangement: with Family Exam Vital Signs Vital Sign - Last Date Time Temp Pulse Resp B/P Pulse Ox O2 Delivery O2 Flow Rate FiO2 08/03/16 17:01 72 16 169/56 93 Room Air 08/03/16 13:47 36.7 Exam Oriented 3, no distress. Fluent speech Normal skull Normal external nose and ears Anicteric sclerae, symmetric pupils conjugate gaze For fractures unremarkable no facial droop. The neck is supple without adenopathy, normal rate. Lungs are clear with normal effort and rate. Heart is regular without murmur gallop or rub Abdomen soft nontender Extremities are free of edema Good radial pulses Skin is free of rashes, lesions or petechiae Muscles are with normal tone and strength. Joints are not swollen or deformed Lab and Diagnostics Result Diagram: 08/03/16 1410 08/03/161409 Assessment & Plan 1. Uncontrolled hypertension, POA. The plan is to resume all her usual medications and increase hydralazine from 25 mg 3 times a day to 50 mg 3 times a day. 2. Headache, POA. Will use hydrocodone when as needed for FRANCOIS which she uses at home. She has no history of headache. If she fails to improve we will repeat image her brain in the morning. 3. Chronic anxiety disorder, POA. Usual dose of citalopram 10 mg a day 4. Peripheral arterial disease, POA. Continue Plavix and aspirin. 5. Peripheral neuropathy, POA. Continue gabapentin 600 mg 3 times a day D Patient is full resuscitation, discussed at time of admit She is admitted observation status with expected stay of one night. Pain Evaluation: Pain not Controlled Resuscitation Status: CPR: Attempt Resuscitation Time spent 40 minutes Devan Cadena MD Aug 03, 2016 18:15
[2016-08-03 18:16] LABS: APPEARANCE,URINE HAZY (CLEAR,HAZY); COLOR,URINE YELLOW (YELLOW); OCCULT BLOOD,URINE NEGATIVE (NEGATIVE); UROBILINOGEN,URINE NORMAL (NORMAL)
[2016-08-03] MEDS ORDERED: hydrALAZINE 20 mg/mL Inj IV PRN (18:20)
--- NOTE | 2016-08-03 18:30 | NUR ---
ARLEEN explained and signed. Copy of ARLEEN and Medicare self administered medication information provided.
--- NOTE | 2016-08-03 18:38 | NUR ---
admit pt arrived on unit at 1830. VS: BP 208/90, P 80, RR 18, RA Sp02 95%. Pt is c/o 8 headache. Pts daughter stated that she had a fall a couple of days ago and has a bruise on her left temporal area. Pt used BSC and voided and tele hooked up. Pt is alert and oriented X3. Called [facility] in [place] for list of medications but they are closed. Administered 10mg IVP hydralazine and 10mg PO [place]. Will continue to monitor
[2016-08-03] MEDS: HYDROcodone-APAP 5-325 mg Tablet PO PRN (18:50)
[2016-08-04 00:53] VITALS: BP 144/64; PULSE 77; RESP 18; O2SAT 92
[2016-08-04 05:21] VITALS: BP 153/72; PULSE 81; RESP 18; O2SAT 93
[2016-08-04 05:32] LABS: BASOPHILS % (AUTO) 0 % (0-3); EOSINOPHILS % (AUTO) 0 % (0-5); MONOCYTES % (AUTO) 1.7 % (4-12); Mean Corpuscular Hemoglobin 32.2 pg (27.0-35.0); Mean Corpuscular Volume 98.2 fL (81-100); NEUTROPHILS % (AUTO) 84.6 % (40-74); Platelet Count 187 bil/L (150-400)
[2016-08-04] MEDS: HYDROcodone-APAP 5-325 mg Tablet PO PRN (05:33)
--- NOTE | 2016-08-04 05:44 | NUR ---
Headache/BP Pt states that she still have headache, altho it's better than it was yesterday. Pt also states that she had a history of fall last and hit her head. Noted bruise on pt's left temporal area. Pt's BP is gradually trending down, from 180 SBP to 153/72. Pt denies chest pain, sob, n/v or abd discomfort. Will continue to monitor.
[2016-08-04 09:51] VITALS: BP 139/70; PULSE 71; RESP 18; O2SAT 94
[2016-08-04 09:58] VITALS: PULSE 83
--- NOTE | 2016-08-04 10:45 | NUR ---
Evaluation completed. Please go to "Notes" then click on "Assessments and Notes" (bottom left corner of screen). Then select appropriate discipline tab on top of screen.
--- NOTE | 2016-08-04 11:57 | NUR ---
Social Work-initial assessment/ readiness for discharge: Data:See initial assessment. Pt is a 86 y/o female who was admitted on 08/03/16 for hypertensive urgency per H&P. Pt's insurance is [employer] and PCP is Lopez Avilez DO. EMR Reviewed. Pt's readmission score is 2. SW met with pt at bedside to discuss discharge planning, SW role explained. Pt is alert and oriented x3. Pt resides at home with her where she remains independent with ADLs. Pt does not use any DME and drives. Pt has no HH or SNF history. Pt has no [employer] continuous churn care or VA benefits. SW discussed DPOA/ advanced directive, pt states she has completed this, SW encouraged pt to bring a copy into the hospital. PT has cleared pt for home with no needs, pt ambulated 300ft. Pt confirms that her daughter will provide transport home. SW provided phone number and plan on white board in room. No anticipated discharge needs. SW will continue to follow if needs arise. Assessment:Pt who is independent at baseline. Plan:Pt to discharge home when medically sable via POV. No anticipated discharge needs. SW will continue to follow if needs arise. AMINAH Becker Addendum: 08/04/16 at 1201 by ANAI BOOTH Amended: Links added.
--- NOTE | 2016-08-04 12:52 | PCM.DIMED ---
Discharge Instructions Date of Service Aug 04, 2016 Dates of Hospitalization Aug 03, 2016 at 17:28 Discharge Diagnosis Discharge Diagnosis 1. Uncontrolled hypertension, POA. Resolved with resumption of home medications, likely secondary to medication compliance compounded by rebound hypertension in setting of Hydralazine use. Pt now stable/normotensive. Plan for FU with PCP within 1 week for further evaluation. 2. Headache, POA. Resolved with BP control. 3. Chronic anxiety disorder, POA. 4. Peripheral arterial disease, POA. 5. Peripheral neuropathy, POA. Diet Low fat, Low Sodium, Heart Healthy Activity No restrictions Call your provider Shortness of breath, Chest pain, Other (Headache. Blood pressure elevated above 160/100. ) Patient Instructions Restart all medications as previously prescribed Continue to monitor home blood pressures at least 2 times daily or with symptoms such as headache. Follow-up Provider: Lopez Avilez DO Follow-up with PCP in: 1 week Dontrell Ramos DO Aug 04, 2016 12:52
--- NOTE | 2016-08-04 13:16 | NUR ---
Social Work-discharge: Data:EMR reviewed. Pt is on day 1 of hospitalization for hypertensive urgency per H&P. Pt is medically stable to discharge today. PT has cleared pt for home with no needs, ambulating 300ft. SW confirmed plan of home no needs. Pt's daughter to provide transport home today. No discharge needs identified. All updated and agreeable to plan. Assessment:Pt who is independent at baseline. Plan:Pt to discharge home today via POV. No discharge needs identified. All updated and agreeable to plan. AMINAH Becker
[2016-08-04 14:48] VITALS: BP 184/86; PULSE 83; RESP 18; O2SAT 97
--- NOTE | 2016-08-04 15:18 | NUR ---
Discharge Discharge paperwork, care notes reviewed with pt and waiver signed. IV DCd intact, tele removed, all belongings with pt. Pt in room 3015. Pt walked to husbands room to wait for his discharge, steady on feet. Daughter to be picking up both later today.
--- NOTE | 2016-08-04 18:10 | PCM.DC.MED ---
Discharge Summary Date of Service Aug 04, 2016 Dates of Hospitalization Date of Hospital Admission Aug 03, 2016 at 17:28 Date of Discharge: Aug 04, 2016 Providers: Admitting Physician: Devan Cadena MD Primary Care Physician: Lopez Avilez DO Attending Physician: Devan Cadena MD Diagnosis at Time of Discharge Diagnosis at Time of Discharge 1. Uncontrolled hypertension, POA. 2. Headache, POA. Resolved with BP control. 3. Chronic anxiety disorder, POA. 4. Peripheral arterial disease, POA. 5. Peripheral neuropathy, POA. Brief History This is an 86-year-old female with a long history of recalcitrant hypertension. This is her third ER visit in 3 days for headache and hypertension which is uncontrolled. She was seen by her vascular surgeon on Thursday and noted to have a systolic BP of 240 and corrected to the ED. There she was given medication and sent out. She was back to the ER yesterday with ongoing hypertension with a home reading of over 200 systolic. She was again treated and sent out and return today again with ongoing uncontrolled hypertension. Her headache has been going on for several days and is described as a global throbbing. No photophobia or history of headache. No nausea or vomiting. No visual changes. She is having some tingling of both hands but denies any numbness or weakness of arms or legs. No difficulty with speaking. CT scan 2 nights ago was unremarkable. This was not repeated today. She notes that she had run out of her hydralazine for several days but apparently has been taking for the last day or 2 days. It is possible there is a medication compliance issue although she did test today that she is taking her medications. Her baseline medications for blood pressure are hydralazine 25 mg 3 times a day, hydrochlorothiazide 50 mg a day isosorbide mononitrate 20 mg 3 times a day and metoprolol tartrate 25 mg twice a day. Of note a recent stressor is her 's admission to this hospital 2 days ago for possible seizure. He is still in the hospital until probably tomorrow morning. He is doing well however. Hospital Course 1. Uncontrolled hypertension, POA. Resolved with resumption of home medications, likely secondary to medication compliance compounded by rebound hypertension in setting of Hydralazine use. Pt now stable/normotensive. Plan for FU with PCP within 1 week for further evaluation. No medication changes made. 2. Headache, POA. She received 10mg of [place] and upon resuming her Blood pressure medications, this improved her headache overnight. No visual symptoms. 3. Chronic anxiety disorder, POA. Stable on usual dose of citalopram 10 mg a day. Likely exacerbated recently with Spouse being admitted to hospital 4. Peripheral arterial disease, POA. Stable, Continue Plavix and aspirin. 5. Peripheral neuropathy, POA. Stable, Continue gabapentin 600 mg 3 times a day D Exam Vital Signs (Last) Date Time Temp Pulse Resp B/P Pulse Ox O2 Delivery O2 Flow Rate FiO2 08/04/16 14:48 36.6 83 18 184/86 97 Room Air Exam Gen: Well developed Female in NAD HEENT: PERRLA, EOMI, Oropharynx non-erythematous Neck: Soft, midline CV: RRR with soft systolic murmur, no JVD noted Resp; CTAB, normal effort MSK: Muscle Strength grossly intact and equal Neuro: No focal Weakness, CN 2-12 grossly intact and equal, speaks full sentences, face symmetric Skin: warm, dry, intact Psych: Appropriate mood and affect Test 08/03/16 14:10 08/03/16 15:06 08/04/16 05:15 Troponin T < 0.010ug/L (0.0-0.011) Hold Ron Top Tube Received (Received) Urine Color Yellow (YELLOW) Urine Appearance Hazy (CLEAR,HAZY) Urine pH 6.0 (5.0-8.0) Urine Specific [place] 1.020 (1.003-1.035) Urine Protein Negativemg/dL (NEG,TRACE) Urine Glucose (UA) Negativemg/dL (NEGATIVE) Urine Ketones Negativemg/dL (NEGATIVE) Urine Occult Blood Negative (NEGATIVE) Urine Nitrite Negative (NEGATIVE) Urine Bilirubin Negative (NEGATIVE) Urine Urobilinogen Normalmg/dL (NORMAL) Urine Leukocyte Esterase Negative (NEGATIVE) Urine RBC 0-2/hpf (0-2) Urine WBC 0-5/hpf (0-5) Urine Epithelial Cells Moderate/hpf (NONE-MOD) Urine Crystals None seen (NONE SEEN) Urine Bacteria Few/hpf (NONE-FEW) Urine Hyaline Casts Rare/lpf (NONE) Urine Granular Casts None seen (NONE SEEN) Urine Waxy Casts None seen (NONE SEEN) Urine Red Blood Cell Casts None seen (NONE SEEN) Urine White Blood Cell Casts None seen (NONE SEEN) Urine Mucus Present (None Seen) Urine Trichomonas None seen (NONE SEEN) Urine Yeast None (NONE SEEN) Urinalysis Comment None Urine Culture Reflexed Not indicated Hold Urine Received (Received) White Blood Count 5.9th/mm3 (3.8-10.1) Red Blood Count 3.88mil/mm3 (3.90-5.20) Hemoglobin 12.5g/dL (12.0-15.6) Hematocrit 38.1% (35.0-46.0) Mean Corpuscular Volume 98.2fL (81-100) Mean Corpuscular Hemoglobin 32.2pg (27.0-35.0) Mean Corpuscular Hemoglobin Concent 32.8% (32.0-37.0) Red Cell Distribution Width 12.6% (12.3-15.4) Platelet Count 187bil/L (150-400) Neutrophils (%) (Auto) 84.6% (40-74) Lymphocytes (%) (Auto) 13.7% (14-46) Monocytes (%) (Auto) 1.7% (4-12) Eosinophils (%) (Auto) 0% (0-5) Basophils (%) (Auto) 0% (0-3) Sodium Level 133mEq/L (134-144) Potassium Level 4.9mEq/L (3.5-5.2) Chloride Level 97mEq/L (97-108) Carbon Dioxide Level 23mmol/L (18-29) Blood Urea Nitrogen 26mg/dL (8-27) Creatinine 0.80mg/dL (0.57-1.00) Estimat Glomerular Filtration Rate 97mL/min (>59) Glucose Level 151mg/dL (60-99) Calcium Level 9.0mg/dL (8.5-10.1) Total Bilirubin 0.5mg/dL (0.0-1.2) Aspartate Amino Transf (AST/SGOT) 22U/L (0-50) Alanine Aminotransferase (ALT/SGPT) 13U/L (0-32) Alkaline Phosphatase 48U/L (25-165) Total Protein 6.3g/dL (6.4-8.4) Albumin 3.9g/dL (3.4-5.0) Discharge Medications Discharge Medications Aspirin (Aspirin) 81 Mg Tablet 81 MG PO DAILY (Reported) Cholecalciferol (Vitamin D3) (Vitamin D3) 1,000 Unit Tab.chew 1,000 UNIT PO DAILY (Reported) Citalopram (Citalopram) 10 Mg Tablet 10 MG PO DAILY (Reported) Clopidogrel (Clopidogrel) 75 Mg Tablet 75 MG PO DAILY (Reported) Fe Fumarate/Liver Ext/Bcomp&C (Liver with Iron Tablet) 1 Each Tablet 2 EACH PO DAILY (Reported) Gabapentin (Gabapentin) 300 Mg Capsule 600 MG PO TID (Reported) Hydralazine (Hydralazine) 25 Mg Tablet 50 MG PO TID (Reported) Hydrochlorothiazide (Hydrochlorothiazide) 50 Mg Tablet 50 MG PO DAILY (Reported ) Isosorbide MN (Isosorbide MN) 10 Mg Tablet 20 MG PO TID (Reported) 7 hours apart Metoprolol Tartrate (Metoprolol Tartrate) 25 Mg Tablet 25 MG PO BID (Reported) Multivitamin (Once Daily) 1 Each Tablet 1 EACH PO DAILY (Reported) Pantoprazole DR (Pantoprazole DR) 40 Mg Tablet.dr 40 MG PO DAILY (Reported) Vit A & D3 in Cod Liver Oil (Cod Liver Oil Softgel) 1 Each Capsule 1 EACH PO DAILY (Reported) Vitamin E Acetate (Vitamin E) 600 Unit Capsule 1,200 UNIT PO DAILY (Reported) As needed Acetaminophen (Acetaminophen) 325 Mg Tablet 325 MG PO DAILY PRN PRN For Pain ( Reported) Hydrocodone-Acetaminophen 10-325 mg (Hydrocodone-Acetaminophen 10-325 mg) 1 Each Tablet 1 TABLET PO Q6H PRN PRN For Pain (Reported) Nitroglycerin SL (Nitrostat) 0.4 Mg Tablet 0.4 MG SL Q5MIN PRN PRN For Chest Pain Prescribed by: IRINA THOMPSON MD Polyethylene Glycol 3350 (Polyethylene Glycol 3350) 17 Gm Powd.pack 1 PACKET PO DAILY PRN PRN For Constipation (Reported) Scopolamine (Transderm-Scop) 1 Each Patch.td72 1 EACH TRANSDERM q72 hours PRN PRN For Nausea (Reported) Additional med instructions Continue taking your home medications as scheduled. Followup Plan Disposition: Home Discharge Diet: Low fat, Low Sodium, Heart Healthy Discharge Activity: No restrictions Patient Instructions Restart all medications as previously prescribed Continue to monitor home blood pressures at least 2 times daily or with symptoms such as headache. Follow-up Provider: Lopez Avilez DO Follow-up with PCP in: 1 week Time spent 35 minutes Attending Statement I have seen and evaluated patient at bedside in addition to directly supervising care provided by resident physician. I agree with above documentation. copies to: Lopez Avilez Hong D DO Aug 04, 2016 18:10 Dontrell Ramos DO Aug 05, 2016 08:04
== END 2016-08-04 15:45 | disposition home or self-care (01) ==
LOC: SED 13:39 → MPC 17:28
PROVIDERS: ADMIT Hospitalist; ATTEND Hospitalist
DX: I10 Essential (primary) hypertension (principal); R51 Headache; F41.9 Anxiety disorder, unspecified; I73.9 Peripheral vascular disease, unspecified; G62.9 Polyneuropathy, unspecified; I65.29 Occlusion and stenosis of unspecified carotid artery; M10.9 Gout, unspecified; K22.4 Dyskinesia of esophagus; E11.9 Type 2 diabetes mellitus without complications; Z86.73 Personal history of transient ischemic attack (TIA), and cerebral infarction without residual deficits; Z79.02 Long term (current) use of antithrombotics/antiplatelets; Z79.82 Long term (current) use of aspirin
CPT/HCPCS: 36415; 80053; 81000; 84484; 85025; 93005; 96374; 96375; 96376; 97161; 99285; G0378; J0360; J1100; J1200; J1885; J2270; J2405; J2765

== ENCOUNTER 2016-12-20 17:23 | Emergency (ER) | payer MEDICARE, OTHER ==
[~2016-12-20] VITALS: Ht 165.1 cm; Wt 70.5 kg
[2016-12-20 17:37] VITALS: PULSE 61; RESP 16; O2SAT 97
--- NOTE | 2016-12-20 18:15 | ED.REPORT ---
HPI-Head Prob / Injury Date of Service Dec 20, 2016 ED Provider: Brandon Esteban DO Pt is an 86 year old female with a history of DM, HTN, and recent falls with head injury who presents to the ED complaining of vomiting after a ground level fall prior to arrival. She c/o associated nausea, back pain, head pain, and left 5th toe pain. She denies LOC and neck pain. The pt reports that she stepped backwards and lost her balance, causing her to hit her head on the edge of a concrete patio. Her last tetanus shot was more than 5 years ago. Her family reports that after the pt fell, she went back into the house and accidentally stubbed her toe. The pt is currently taking Plavix. Nursing Notes Stated Complaint: GROUND LEVEL FALL,HEAD INJURY ON BLOOD THINNER Chief Complaint: Multiple Trauma/Fall Nursing Notes Reviewed: Yes Allergies: Coded Allergies: lisinopril (Unverified Allergy, Mild, extremity aching, 08/02/16) pravastatin (Verified Allergy, Mild, extremity aching, 08/02/16) Cephalosporins (Verified Allergy, Unknown, 08/02/16) Penicillins (Verified Allergy, Unknown, 08/02/16) TAPE (Verified Allergy, Unknown, 08/02/16) amlodipine (Unverified Allergy, Unknown, 08/02/16) diltiazem (Unverified Allergy, Unknown, 08/02/16) losartan (Verified Allergy, Unknown, 08/02/16) nifedipine (Verified Allergy, Unknown, 08/02/16) olmesartan medoxomil (Unverified Allergy, Unknown, 08/02/16) trazodone (Verified Allergy, Unknown, 08/02/16) Contrast Media (Unverified Adverse Reaction, Intermediate, fainting, ) has taken dye when given "something beforehand" codeine (Verified Adverse Reaction, Intermediate, Nausea,Vomiting, 08/02/16) hydromorphone (Verified Adverse Reaction, Mild, CONFUSION, ANXIETY, RESTLESSNESS, 08/02/16) Scheduled Aspirin (Aspirin) 81 Mg Tablet 81 MG PO DAILY Cholecalciferol (Vitamin D3) (Vitamin D3) 1,000 Unit Tab.chew 1,000 UNIT PO DAILY Citalopram (Citalopram) 10 Mg Tablet 10 MG PO DAILY Clopidogrel (Clopidogrel) 75 Mg Tablet 75 MG PO DAILY Fe Fumarate/Liver Ext/Bcomp&C (Liver with Iron Tablet) 1 Each Tablet 2 EACH PO DAILY Gabapentin (Gabapentin) 300 Mg Capsule 600 MG PO TID Hydralazine (Hydralazine) 25 Mg Tablet 50 MG PO TID Hydrochlorothiazide (Hydrochlorothiazide) 50 Mg Tablet 50 MG PO DAILY Isosorbide MN (Isosorbide MN) 10 Mg Tablet 20 MG PO TID 7 hours apart Metoprolol Tartrate (Metoprolol Tartrate) 25 Mg Tablet 25 MG PO BID Multivitamin (Once Daily) 1 Each Tablet 1 EACH PO DAILY Pantoprazole DR (Pantoprazole DR) 40 Mg Tablet.dr 40 MG PO DAILY Vit A & D3 in Cod Liver Oil (Cod Liver Oil Softgel) 1 Each Capsule 1 EACH PO DAILY Vitamin E Acetate (Vitamin E) 600 Unit Capsule 1,200 UNIT PO DAILY Scheduled PRN Acetaminophen (Acetaminophen) 325 Mg Tablet 325 MG PO DAILY PRN PRN For Pain Hydrocodone-Acetaminophen 10-325 mg (Hydrocodone-Acetaminophen 10-325 mg) 1 Each Tablet 1 TABLET PO Q6H PRN PRN For Pain Nitroglycerin SL (Nitrostat) 0.4 Mg Tablet 0.4 MG SL Q5MIN PRN PRN For Chest Pain Polyethylene Glycol 3350 (Polyethylene Glycol 3350) 17 Gm Powd.pack 1 PACKET PO DAILY PRN PRN For Constipation Scopolamine (Transderm-Scop) 1 Each Patch.td72 1 EACH TRANSDERM q72 hours PRN PRN For Nausea General Time Seen by Provider: 18:15 Chief Complaint Blunt head trauma Hx Obtained From: Patient Arrived By: Walk-in Onset Occurred: Just prior to arrival Symptom Duration: Since onset Quality: Painful Severity: Current: Moderate Severity: Maximum: Moderate Immunizations: Tetanus not up to date Recent Healthcare: Recent doctor visit Similar Sx Previous: Yes Past Medical History Past Medical History Notes: Admit in June 2015 for CP/weakness, cardiac w/u negative Patient is FULL CODE Past Medical History Significant peripheral vascular disease (patient status post angiography and possible angioplasty in 2008, reportedly complicated by large retroperitoneal hematoma and temporary shock) Carotid stenosis h/o gout H/o esophageal spasms for which she takes occassional nitroglyerin. Reports: Diabetes mellitus, Hypertension Past Surgical History Benign neck mass removed in April 2015 Cardiac cath October 2013 with no occlusive obstructive disease Left carotid endarterectomy at [facility] Colectomy in 1994 for diverticulitis Cholecystectomy Hysterectomy Bladder sling in 1999 Back surgery 2005 Appendectomy 1945 Ectopic status post oophorectomy in 195 Thyroid surgery Reports: Carotid endarterectomy Family History noncontributory Smoking History Never Smoker Social History Alcohol Use: Denies alcohol use Drug Use: Denies drug use Other Social History: Good social support, , Local resident Ambulatory Status Independent Review of Systems + Toe pain + Head pain GI: Reports: Nausea, Vomiting Musculoskeletal: Reports: Back pain, Denies: Neck pain Neurologic: Denies: Change LOC Complete sys rev & neg: except as marked. Physical Exam Initial Vital Signs Vital Signs (First) Date Time Temp Pulse Resp B/P Pulse Ox O2 Delivery O2 Flow Rate FiO2 12/20/16 17:37 37.1 61 16 97 Room Air 12/20/16 20:38 182/90 Initial VS: Reviewed Respiratory: Breath sounds normal, Clear to auscultation, No respiratory distress Cardiovascular: Regular rate & rhythm, Heart sounds normal, Intact distal pulses Abdomen / GI: Soft, Non-tender Extremities: Vascular intact, Neuro intact Skin: Warm, Dry, No cyanosis Psychiatric: Mood/affect normal, Behavior normal General/Constitutional: Awake, Alert, Cooperative Head / Eyes: Atraumatic, Normocephalic Moderate scalp hematoma with what looks like parietal abrasion. ENT: Atraumatic, Airway patent Neck: Atraumatic, Full range of motion Applied CT neck not indicated. Neurologic: Oriented X3, Speech NL Back: Full range of motion Bruise on her left mid thoracic around T5 with tenderness. Ankle / Foot: Neurologic intact, Vascular intact Tender left 5th toe Interpretation & Diagnostics Lab Results Interpretation Result Diagram: 12/20/16191412/20/161914 Test 12/20/16 19:15 White Blood Count 6.2th/mm3 (3.8-10.1) Red Blood Count 4.12mil/mm3 (3.90-5.20) Hemoglobin 13.5g/dL (12.0-15.6) Hematocrit 41.6% (35.0-46.0) Mean Corpuscular Volume 101.0fL (81-100) Mean Corpuscular Hemoglobin 32.8pg (27.0-35.0) Mean Corpuscular Hemoglobin Concent 32.5% (32.0-37.0) Red Cell Distribution Width 12.4% (12.3-15.4) Platelet Count 181bil/L (150-400) Neutrophils (%) (Auto) 63.5% (40-74) Lymphocytes (%) (Auto) 20.9% (14-46) Monocytes (%) (Auto) 10.1% (4-12) Eosinophils (%) (Auto) 4.5% (0-5) Basophils (%) (Auto) 0.8% (0-3) Prothrombin Time 9.9sec (8.1-12.5) Prothromb Time International Ratio 0.93ratio Sodium Level 138mEq/L (134-144) Potassium Level 4.1mEq/L (3.5-5.2) Chloride Level 96mEq/L (97-108) Carbon Dioxide Level 27mmol/L (18-29) Blood Urea Nitrogen 26mg/dL (8-27) Creatinine 0.93mg/dL (0.57-1.00) Estimat Glomerular Filtration Rate 82mL/min (>59) Glucose Level 91mg/dL (60-99) Calcium Level 10.1mg/dL (8.5-10.1) Total Bilirubin 0.3mg/dL (0.0-1.2) Aspartate Amino Transf (AST/SGOT) 27U/L (0-50) Alanine Aminotransferase (ALT/SGPT) 19U/L (0-32) Alkaline Phosphatase 64U/L (25-165) Total Protein 7.2g/dL (6.4-8.4) Albumin 4.4g/dL (3.4-5.0) Hold Ron Top Tube Received (Received) X-Ray Interpretation Xray Interpretation: IMPRESSION: No acute rib fractures. Old left posterior sixth rib fracture. Dictated by: Lana Charles M.D. on 12/20/2016 at 19:46 Study Performed: Minimum 3 view - Ribs Interpretation / Wet Read by: Interpret - Radiologist Xray Interpretation: IMPRESSION: Nondisplaced fracture at the base of the fifth proximal phalanx. Dictated by: Lana Charles M.D. on 12/20/2016 at 19:49 X-Ray Ordered: Foot left Interpretation / Wet Read by: Interpret - Radiologist CT Head Interpretation IMPRESSION: 1. No acute intracranial abnormalities. 2. Cerebral volume loss and chronic microvascular ischemic changes. 3. Right parietal subscalp hematoma. Dictated by: Lana Charles M.D. on 12/20/2016 at 18:27 Study: Head CT no contrast Interpretation / Wet Read by: Interpret - Radiologist Re-Eval/Medical Decision Source of Hx: Old records Re-Evaluation/Progress : Time of Eval: 19:10 Re-Evaluation/Progress Note: Pt rechecked. Informed pt of plan for discharge. Pt understands and agrees with plan for discharge. F/U instructions and RTER warnings given. All questions addressed. Counseled Regarding: Diagnosis, Lab results, Need for follow-up, When/why to return to ED Discharge & Departure Primary Impression: Blunt head trauma Encounter type: initial encounter Qualified Code: S09.8XXA - Other specified injuries of head, initial encounter Additional Impressions: Scalp hematoma Encounter type: initial encounter Qualified Code: S00.03XA - Contusion of scalp, initial encounter Toe fracture Encounter type: initial encounter Toe: unspecified toe Fracture type: closed Fracture alignment: nondisplaced Laterality: left Qualified Code: S92.912A - Unspecified fracture of left toe(s), initial encounter for closed fracture Contusion of chest Encounter type: initial encounter Laterality: unspecified laterality Qualified Code: S20.219A - Contusion of unspecified front wall of thorax, initial encounter Disposition: Home All VS Reviewed: Yes Condition: Stable Patient Instructions: Toe Fracture (ED) Additional Instructions: Your CAT scan and x-rays are negative with no signs of new fractures. You do have an old rib fracture. You do have a broke 5th toe. Keep you toes orquidea taped together. [place] 1-2 every 6 hours as needed[address] not drive or drink alcohol or consume acetaminophen while on [place]. This can increase your risk of falling, so only take it when you can be seated. Increase natural fiber in your diet to avoid constipation. Call your doctor tomorrow for a follow up appointment. Return to the Emergency Department for any new or worsening symptoms. Referrals: Lopez Avilez DO (PCP) Scribe Attestation Portions of this note were transcribed by Priya Hanley. I, Dr. Esteban personally performed the history, physical exam and medical decision-making; I reviewed and confirmed the accuracy of the information in the transcribed note. Signed by : Skylar Barnes, 12/20/16 and 19:30. copies to: Lopez Avilez Todd P DO Dec 20, 2016 18:15 Priya Jones Dec 20, 2016 18:29
--- NOTE | 2016-12-20 18:43 | DRSVH ---
PROCEDURE: CT BRAIN WITHOUT CONTRAST ([id number]) INDICATIONS: head injury on plavix TECHNIQUE: Noncontrast 4.5 mm thick angled axial sections acquired from the foramen magnum to the vertex, with c oronal reformats. COMPARISON: [facility], CT, CT BRAIN WO CON, 08/01/2016, 21:18. FINDINGS: Image quality: Excellent. CSF spaces: Basal cisterns are patent. No extra-axial fluid collections. The ventricles are symmet madeline in size and shape. Brain: No intracranial bleeds or masses. There is moderate cerebral volume loss for age, with resul tant ventricular and sulcal prominence. There are moderate periventricular and deep white matter chr onic small vessel ischemic changes. There is intracranial internal carotid artery atherosclerosis. Skull and face: Calvarium and visualized facial bones appear intact, without suspicious lesions. Th ere is a [id number]-sized right parietal subscalp hematoma. Sinuses: Visualized sinuses and mastoids are clear. IMPRESSION: 1. No acute intracranial abnormalities. 2. Cerebral volume loss and chronic microvascular ischemic changes. 3. Right parietal subscalp hematoma. Dictated by: Lana Charles M.D. on 12/20/2016 at 18:27 Approved by: Lana Charles M.D. on 12/20/2016 at 18:41
[2016-12-20 19:21] LABS: BASOPHILS % (AUTO) 0.8 % (0-3); EOSINOPHILS % (AUTO) 4.5 % (0-5); MONOCYTES % (AUTO) 10.1 % (4-12); Mean Corpuscular Hemoglobin 32.8 pg (27.0-35.0); NEUTROPHILS % (AUTO) 63.5 % (40-74); Platelet Count 181 bil/L (150-400)
[2016-12-20] MEDS ORDERED: TdaP Vaccine 0.5 mL Inj IM ONE (19:30)
[2016-12-20] MEDS ORDERED: HYDROcodone-APAP 5-325 mg Tablet PO ONE (19:30)
[2016-12-20 19:45] LABS: INR 0.93 ratio
--- NOTE | 2016-12-20 19:51 | DRSVH ---
PROCEDURE: X-RAY LEFT RIBS INCLUDEING PA CHEST, MINUMUM THREE VIEWS ([id number]) INDICATIONS: toe trauma TECHNIQUE: 3 views of the left ribs were acquired, along with a single view chest. COMPARISON: None. FINDINGS: Surgical changes and devices: None. Bones and chest wall: No acute displaced rib fractures. There is an old rib fracture involving the p osterior left sixth rib. No suspicious bony lesions. Overlying soft tissues appear unremarkable. Lungs and pleura: No pleural effusions or pneumothorax. Bibasilar atelectasis. Mediastinum: Mediastinal contours appear normal. Heart size is normal. IMPRESSION: No acute rib fractures. Old left posterior sixth rib fracture. Dictated by: Lana Charles M.D. on 12/20/2016 at 19:46 Approved by: Lana Charles M.D. on 12/20/2016 at 19:49
--- NOTE | 2016-12-20 19:53 | DRSVH ---
PROCEDURE: X-RAY TOES, TWO VIEWS INDICATIONS: toe trauma TECHNIQUE: 3 views of the fifth toe(s) acquired. COMPARISON: None. FINDINGS: Bones: There is a non-displaced fracture at the base of the fifth proximal phalanx. No suspicious min ny lesions. Generalized osteopenia. Soft tissues: No suspicious soft tissue densities. Soft tissue swelling at the base of the fifth to e. IMPRESSION: Nondisplaced fracture at the base of the fifth proximal phalanx. Dictated by: Lana Charles M.D. on 12/20/2016 at 19:49 Approved by: Lana Charles M.D. on 12/20/2016 at 19:51
[2016-12-20 20:38] VITALS: BP 182/90; PULSE 60; RESP 16; O2SAT 97
== END 2016-12-20 20:38 | disposition home or self-care (01) ==
LOC: SED 17:23
DX: S92.515A Nondisplaced fracture of proximal phalanx of left lesser toe(s), initial encounter for closed fracture (principal); S00.03XA Contusion of scalp, initial encounter; S20.212A Contusion of left front wall of thorax, initial encounter; W18.39XA Other fall on same level, initial encounter; Y93.89 Activity, other specified; Y92.89 Other specified places as the place of occurrence of the external cause; Y99.8 Other external cause status; R11.2 Nausea with vomiting, unspecified; M54.9 Dorsalgia, unspecified; I10 Essential (primary) hypertension; Z23 Encounter for immunization; Z98.890 Other specified postprocedural states; Z79.82 Long term (current) use of aspirin; Z79.01 Long term (current) use of anticoagulants; Z88.0 Allergy status to penicillin; Z88.1 Allergy status to other antibiotic agents; Z88.5 Allergy status to narcotic agent; Z91.041 Radiographic dye allergy status; Z91.048 Other nonmedicinal substance allergy status

== ENCOUNTER 2016-12-25 09:06 | Inpatient (IN) | payer MEDICARE, OTHER ==
[~2016-12-25] VITALS: Ht 165.1 cm; Wt 73.3 kg
[2016-12-25] VITALS (13 sets, daily range): BP systolic 208–227; BP diastolic 81–105; PULSE 65–72; RESP 14–22; O2SAT 95–97
--- NOTE | 2016-12-25 09:10 | ED.REPORT ---
HPI-Stroke / CVA Dec 25, 2016 ED Provider: Otoniel Contreras MD Patient is an 86 year old female with a hx of DVT's, HTN, and DM on Plavix who presents to the ED complaining of garbled speech onset 0500 this morning. She was last known normal last night. Associated symptoms include urinary retention , confusion, weakness, dizziness, and headache. She denies dysuria, fever, numbness, focal weakness, or any other symptoms. Per daughter, she had an episode of confusion 3 days ago that lasted about half an hour. She was seen in the hospital 5 days ago s/p falling and hitting her head. She started Nortriptyline 2-3 weeks ago. Nursing Notes Stated Complaint: POSS STROKE/CONFUSED/WEAK Nursing Notes Reviewed: Yes Allergies: Coded Allergies: lisinopril (Unverified Allergy, Mild, extremity aching, 12/25/16) pravastatin (Verified Allergy, Mild, extremity aching, 12/25/16) Cephalosporins (Verified Allergy, Unknown, 12/25/16) Penicillins (Verified Allergy, Unknown, 12/25/16) TAPE (Verified Allergy, Unknown, 12/25/16) amlodipine (Unverified Allergy, Unknown, 12/25/16) diltiazem (Unverified Allergy, Unknown, 12/25/16) losartan (Verified Allergy, Unknown, 12/25/16) nifedipine (Verified Allergy, Unknown, 12/25/16) olmesartan medoxomil (Unverified Allergy, Unknown, 12/25/16) trazodone (Verified Allergy, Unknown, 12/25/16) Contrast Media (Unverified Adverse Reaction, Intermediate, fainting, ) has taken dye when given "something beforehand" codeine (Verified Adverse Reaction, Intermediate, Nausea,Vomiting, 12/25/16 ) hydromorphone (Verified Adverse Reaction, Mild, CONFUSION, ANXIETY, RESTLESSNESS, 12/25/16) Scheduled Amlodipine (Amlodipine) 10 Mg Tablet 10 MG PO DAILY (Reported) Aspirin (Aspirin) 81 Mg Tablet 81 MG PO DAILY (Reported) Cholecalciferol (Vitamin D3) (Vitamin D3) 1,000 Unit Tab.chew 1,000 UNIT PO DAILY (Reported) Citalopram (Citalopram) 10 Mg Tablet 10 MG PO DAILY (Reported) Clopidogrel (Clopidogrel) 75 Mg Tablet 75 MG PO DAILY (Reported) Gabapentin (Gabapentin) 300 Mg Capsule 600 MG PO TID (Reported) Hydrochlorothiazide (Hydrochlorothiazide) 50 Mg Tablet 50 MG PO DAILY (Reported ) Isosorbide MN (Isosorbide MN) 10 Mg Tablet 20 MG PO TID (Reported) 7 hours apart Metoprolol Tartrate (Metoprolol Tartrate) 50 Mg Tablet 100 MG PO BID (Reported) Multivitamin (Once Daily) 1 Each Tablet 1 EACH PO DAILY (Reported) Nortriptyline (Nortriptyline) 10 Mg Capsule 10 MG PO DAILY (Reported) Pantoprazole DR (Pantoprazole DR) 40 Mg Tablet.dr 40 MG PO HS (Reported) Verapamil ER (Verapamil ER) 360 Mg Cap24h.pel 360 MG PO DAILY (Reported) Scheduled PRN Acetaminophen (Acetaminophen) 325 Mg Tablet 325 MG PO DAILY PRN PRN For Pain ( Reported) Hydrocodone-Acetaminophen 10-325 mg (Hydrocodone-Acetaminophen 10-325 mg) 1 Each Tablet 1 TABLET PO Q6H PRN PRN For Pain (Reported) Nitroglycerin SL (Nitrostat) 0.4 Mg Tablet 0.4 MG SL Q5MIN PRN PRN For Chest Pain General Time Seen by Provider: 09:10 Chief Complaint Slurred speech Hx Obtained From: Patient, Spouse, Daughter Arrived By: Walk-in Time last known well 12/24/16 in the evening Sudden in Onset?: Yes Symptom Duration: Since onset Progression Since Onset: Gradually improving Severity: Current: No pain currently Severity: Maximum: No pain Context: Immunizations Unknown Risk Factors )( TPA Administration/Criteria Stroke Thrombolytic Therapy : TPA Considered: Yes TPA Administered Intravenously: No, not indicated Addl Ex Criteria 3-4.5 Hr: Age > 80 years NIH Stroke Scale Level of Consciousness: Alert and responsive (0) Ask Month & Age: Both questions right (0) (Does not know year) Open/Close Eyes/Hand Territory Sales Manager: Performs both tasks (0) Horizontal EO Movements: None (0) Visual Benjamin: No visual loss (0) Facial Palsy: Normal symmetry (0) Right Arm Motor Drift (10s): No drift 10 sec (0) Left Arm Motor Drift (10s): No drift 10 sec (0) Right Leg Motor Drift (5s): No drift 5 sec (0) Left Leg Motor Drift (5s): No drift 5 sec (0) Limb Ataxia FNF/Heel-Martinez: No ataxia (0) Sensation (Arms/Legs/Face): No sensory loss (0) Language Aphasia: Loss fluency ID matls (1) Dysarthria: Slurring intelligible (1) Extinction/Inattention: No exctinct/inattent (0) NIHSS Score: 2 Time NIHSS Performed: 09:15 Date NIHSS Performed: Dec 25, 2016 )( CVA Risk Stratification Age >60 Diabetes mellitus HypertensionNo Atrial fibrillation, No Oral contraceptive, No Prior CVA/TIA, No Smoking Risk factors reviewed Past Medical History Past Medical History Notes: Admit in June 2015 for CP/weakness, cardiac w/u negative Patient is FULL CODE Past Medical History Significant peripheral vascular disease (patient status post angiography and possible angioplasty in 2008, reportedly complicated by large retroperitoneal hematoma and temporary shock) with DVT's Carotid stenosis h/o gout H/o esophageal spasms for which she takes occassional nitroglyerin Skin cancer. Reports: Diabetes mellitus, Hypertension Past Surgical History Benign neck mass removed in April 2015 Cardiac cath October 2013 with no occlusive obstructive disease Left carotid endarterectomy at [facility] Colectomy in 1994 for diverticulitis Cholecystectomy Hysterectomy Bladder sling in 1999 Back surgery 2004 Appendectomy 194 Ectopic status post oophorectomy in 1951 Thyroid surgery Reports: Carotid endarterectomy, Cataract surgery, Tonsillectomy Family History noncontributory Smoking History Never Smoker Social History Alcohol Use: Denies alcohol use Drug Use: Denies drug use Other Social History: Good social support, , Local resident Ambulatory Status Independent Review of Systems Review of Systems Note: +urinary retention Constitutional: Reports: Weakness - generalized, Denies: Fever Neurologic: Reports: Confusion, Dizziness, Headache, Slurred speech (garbled ) , Denies: Numbness, Weakness Complete sys rev & neg: except as marked. Female: Denies: Dysuria Physical Exam Initial Vital Signs Vital Signs (First) Date Time Temp Pulse Resp B/P Pulse Ox O2 Delivery O2 Flow Rate FiO2 12/25/16 09:10 36.5 67 22 227/99 97 Room Air Initial VS: Reviewed, Vital signs abnormal Abdomen / GI: Soft, Non-tender Skin: Warm, Dry Psychiatric: Mood/affect normal, Behavior normal, Normal thought content General/Constitutional: Awake, Alert Alertness: Positive: Confused (mildly ) Head / Eyes: Atraumatic, Normocephalic, EOMI Neck: Supple, Full range of motion Respiratory / Chest: Breath sounds NL, Breath sounds = bilat, No respiratory distress Cardiovascular: Heart rate NL, Regular rhythm, Heart sounds NL NIH stroke scale score 2 Slurred speech, mildly confused Interpretation & Diagnostics Lab Results Interpretation Result Diagram: 12/25/16 0935 12/25/16 0935 Test 12/25/16 09:35 12/25/16 10:11 12/25/16 10:15 White Blood Count 6.5th/mm3 (3.8-10.1) Red Blood Count 4.44mil/mm3 (3.90-5.20) Hemoglobin 14.3g/dL (12.0-15.6) Hematocrit 44.9% (35.0-46.0) Mean Corpuscular Volume 101.1fL (81-100) Mean Corpuscular Hemoglobin 32.2pg (27.0-35.0) Mean Corpuscular Hemoglobin Concent 31.8% (32.0-37.0) Red Cell Distribution Width 12.3% (12.3-15.4) Platelet Count 186bil/L (150-400) Neutrophils (%) (Auto) 62.2% (40-74) Lymphocytes (%) (Auto) 21.5% (14-46) Monocytes (%) (Auto) 7.6% (4-12) Eosinophils (%) (Auto) 7.6% (0-5) Basophils (%) (Auto) 0.9% (0-3) Prothrombin Time 9.9sec (8.1-12.5) Prothromb Time International Ratio 0.93ratio Sodium Level 138mEq/L (134-144) Potassium Level 4.2mEq/L (3.5-5.2) Chloride Level 94mEq/L (97-108) Carbon Dioxide Level 28mmol/L (18-29) Blood Urea Nitrogen 26mg/dL (8-27) Creatinine 0.90mg/dL (0.57-1.00) Estimat Glomerular Filtration Rate 85mL/min (>59) Glucose Level 129mg/dL (60-99) Calcium Level 10.0mg/dL (8.5-10.1) Magnesium Level 2.0mg/dL (1.6-2.6) Total Bilirubin 0.4mg/dL (0.0-1.2) Aspartate Amino Transf (AST/SGOT) 29U/L (0-50) Alanine Aminotransferase (ALT/SGPT) 22U/L (0-32) Alkaline Phosphatase 71U/L (25-165) Troponin T < 0.010ug/L (0.0-0.011) Total Protein 7.5g/dL (6.4-8.4) Albumin 4.4g/dL (3.4-5.0) Urine Color Straw (YELLOW) Urine Appearance Clear (CLEAR,HAZY) Urine pH 7.0 (5.0-8.0) Urine Specific Noble 1.010 (1.003-1.035) Urine Protein Negativemg/dL (NEG,TRACE) Urine Glucose (UA) Negativemg/dL (NEGATIVE) Urine Ketones Negativemg/dL (NEGATIVE) Urine Occult Blood Negative (NEGATIVE) Urine Nitrite Negative (NEGATIVE) Urine Bilirubin Negative (NEGATIVE) Urine Urobilinogen Normalmg/dL (NORMAL) Urine Leukocyte Esterase Negative (NEGATIVE) Urine RBC 0-2/hpf (0-2) Urine WBC 0-5/hpf (0-5) Urine Epithelial Cells Occasional/hpf (NONE-MOD) Urine Crystals None seen (NONE SEEN) Urine Bacteria None/hpf (NONE-FEW) Urine Hyaline Casts None/lpf (NONE) Urine Granular Casts None seen (NONE SEEN) Urine Waxy Casts None seen (NONE SEEN) Urine Red Blood Cell Casts None seen (NONE SEEN) Urine White Blood Cell Casts None seen (NONE SEEN) Urine Mucus None seen (None Seen) Urine Trichomonas None seen (NONE SEEN) Urine Yeast None (NONE SEEN) Urinalysis Comment Transitional epi Urine Culture Reflexed Not indicated Lactic Acid Level 1.8mmol/L (0.4-2.0) ECG Interpretation ECG Interpretation: Sinus rate 67 LVH Unchanged from prior Q waves in V1-3 (also unchanged from prior) Time: 09:41 Interpreted by: ED physician X-Ray Chest Interpretation Chest Xray Interpretation: IMPRESSION: Stable chest. No acute cardiopulmonary process is evident. Dictated by: Marco A Kelly M.D. on 12/25/2016 at 9:04 Approved by: Marco A Kelly M.D. on 12/25/2016 at 9:05 View: Portable, 1 view Interpretation / Wet Read by: Interpret - Radiologist CT Head Interpretation IMPRESSION: 1. No acute intracranial abnormalities. 2. Cerebral volume loss and chronic microvascular ischemic changes. Dictated by: Lana Charles M.D. on 12/25/2016 at 9:34 Approved by: Lana Charles M.D. on 12/25/2016 at 9:36 Study: Head CT no contrast Interpretation / Wet Read by: Interpret - Radiologist Re-Eval/Medical Decision Med Decision/Clinical Course 86-year-old female history of poorly controlled hypertension presenting with altered mental status since this morning. Per family with garbled speech, dysarthria since this morning. Last known normal was last night." Stroke was called on arrival. No TPA candidate given last known normal greater than [address] head no acute pathology. Labs are unremarkable. Chest x-ray was clear. Her NIH stroke scale was 2. Symptoms did not change while she was here. Her blood pressure was significantly elevated systolics to tended to 30s. She was given 1 dose of atenolol to bring her below systolic of 220 and nothing further given possible CVA for permissive hypertension. Suspect her altered mental status most likely due to CVA. Cannot rule out hypertensive emergency. Patient will be admitted for MRI. Will await lowering blood pressure further until stroke was ruled out. Admitted to hospitalist. Re-Evaluation/Progress : Time of Eval: 10:45 )( Re-Eval Neurologic Exam: Alert Re-Evaluation/Progress Note: Rechecked pt. Discussed lab and imaging results. Discussed plan for admission. Patient understands and agrees with plan. All questions addressed at this time. Consultation #1: Referral / Consult Name: Bj Whalen MD Consulted With: Hospitalist Call Returned at: 11:35 Retrofit Installer: Will see patient, Agrees with eval, Agrees with plan, Accepts admit Note: Discussed pt's case. Accepts admit. Consultation #2: Referral / Consult Name: Virgil Lechuga MD Consulted With: Neurology Note: Will consult Counseled Regarding: Diagnosis, Lab results, Need for admission Patient Discharge & Departure Impression: Primary Impression: Altered mental status Altered mental status type: unspecified Qualified Code: R41.82 - Altered mental status, unspecified Additional Impressions: Hypertension Hypertension type: unspecified secondary hypertension Qualified Code: I15.9 - Secondary hypertension, unspecified CVA (cerebral vascular accident) Disposition: ADMITTED TO HOSPITAL Discharge Condition All VS Reviewed: Yes Condition: Stable Referrals: Lopez Avilez DO (PCP) Crit Care Except Billable Proc Time Spent: 30-74 minutes Services Performed: Patient management by me, Time spent at bedside, Reviewing test results, Reviewing imaging, Discussing patient care, Documentation in record, Time with fam/surrogate Scribe Attestation Portions of this note were transcribed by Trent Shoemaker. I, Dr. Contreras personally performed the history, physical exam and medical decision-making; I reviewed and confirmed the accuracy of the information in the transcribed note. copies to: Lopez Avilez Ben M MD Dec 25, 2016 09:10 TRENT SHOEMAKER Dec 25, 2016 09:18
--- NOTE | 2016-12-25 09:39 | DRSVH ---
PROCEDURE: CT BRAIN WITHOUT CONTRAST ([id number]) INDICATIONS: Stroke TECHNIQUE: Noncontrast 4.5 mm thick angled axial sections acquired from the foramen magnum to the vertex, with c oronal reformats. COMPARISON: [facility], CT, CT BRAIN WO CON, 12/20/2016, 17:52. FINDINGS: Image quality: Excellent. CSF spaces: Basal cisterns are patent. No extra-axial fluid collections. The ventricles are symmet madeline in size and shape. Brain: No intracranial bleeds or masses. There is moderate cerebral volume loss for age, with resul tant ventricular and sulcal prominence. There are moderate periventricular and deep white matter chr onic small vessel ischemic changes. There is intracranial internal carotid artery atherosclerosis. Skull and face: Calvarium and visualized facial bones appear intact, without suspicious lesions. Sinuses: Visualized sinuses and mastoids are clear. IMPRESSION: 1. No acute intracranial abnormalities. 2. Cerebral volume loss and chronic microvascular ischemic changes. Dictated by: Lana Charles M.D. on 12/25/2016 at 9:34 Approved by: Lana Charles M.D. on 12/25/2016 at 9:36
[2016-12-25 09:46] LABS: BASOPHILS % (AUTO) 0.9 % (0-3); EOSINOPHILS % (AUTO) 7.6 % (0-5); MONOCYTES % (AUTO) 7.6 % (4-12); Mean Corpuscular Hemoglobin 32.2 pg (27.0-35.0); Mean Corpuscular Volume 101.1 fL (81-100); NEUTROPHILS % (AUTO) 62.2 % (40-74); Platelet Count 186 bil/L (150-400)
[2016-12-25 10:00] LABS: INR 0.93 ratio
--- NOTE | 2016-12-25 10:06 | DRSVH ---
PROCEDURE: X-RAY CHEST ONE VIEW, PORTABLE ([id number]) INDICATIONS: altered mental status TECHNIQUE: One view of the chest was acquired. COMPARISON: [facility], CR, XR CHEST 1VW (PORTABLE), 08/02/2016, 14:13. FINDINGS: Surgical changes and devices: None. Lungs and pleura: No pleural effusions or pneumothorax. Lungs are clear. Aeration of the lungs is similar to the prior study. There is mild elevation of the right diaphragm. . Mediastinum: Mediastinal contours appear normal. Heart size is normal. There is aortic atheroscler osis Bones and chest wall: No suspicious bony lesions. Degenerative changes of the shoulders and spine a re present. Overlying soft tissues appear unremarkable. IMPRESSION: Stable chest. No acute cardiopulmonary process is evident. Dictated by: Marco A Kelly M.D. on 12/25/2016 at 9:04 Approved by: Marco A Kelly M.D. on 12/25/2016 at 9:05
[2016-12-25 10:07] LABS: TROPONIN T < 0.010 ug/L (0.0-0.011)
[2016-12-25 10:30] LABS: APPEARANCE,URINE CLEAR (CLEAR,HAZY); COLOR,URINE STRAW (YELLOW); OCCULT BLOOD,URINE NEGATIVE (NEGATIVE); UROBILINOGEN,URINE NORMAL (NORMAL)
[2016-12-25] MEDS ORDERED: Labetalol 5 mg/mL 4 mL Inj IVPUSH ONE (10:40)
[2016-12-25] MEDS ORDERED: Alum-Mag Hydrox-Simeth 30 mL Suspension PO PRN ×2 (11:40→11:45)
[2016-12-25] MEDS ORDERED: Ondansetron 2 mg/mL 2 mL Inj IVPUSH PRN ×2 (11:40→11:45)
[2016-12-25] MEDS ORDERED: VERA360C2 PO (11:42)
[2016-12-25] MEDS ORDERED: METO50TA3 PO (11:42)
[2016-12-25] MEDS ORDERED: AMLO10TA3 PO (11:45)
[2016-12-25] MEDS ORDERED: Polyethylene Glycol (PEG) 17 Gm Powder PO PRN (11:45)
[2016-12-25] MEDS ORDERED: NORT10CA PO (11:45)
--- NOTE | 2016-12-25 13:26 | NUR ---
Admit [facility] [place] [facility] approx 1300 accompanied by family. Pt is SL with peripheral IV, on RA, alert to self but with aphasia, 1 asst for safety with BA on for confusion/weakness/impulsivity. Care continues. Addendum: 12/25/16 at 1544 by ONI WHITE RN Per permissive HTN 220/110 allowed initial 24 hours, PRN BP meds available if needed
[2016-12-25] MEDS: Heparin 5,000 Unit/mL Inj SUBQ SCH ×2 (13:52→22:34)
[2016-12-25] MEDS: 0.9% Sodium Chloride 1,000 ML IV SCH ×2 (13:52→21:43)
[2016-12-25] MEDS ORDERED: HYDR-3939 PO (15:01)
[2016-12-25] MEDS ORDERED: ONDA-53 PO (15:01)
[2016-12-25] MEDS ORDERED: Labetalol 5 mg/mL 4 mL Inj IVPUSH PRN (15:45)
--- NOTE | 2016-12-25 18:14 | DRSVH ---
[facility] [address] [place] [address] Echocardiogram Report Name: JACK TEJEDA Study Date: 12/25/2016 Height: 65 in Hospital Exam Location: [facility] Weight: 164 lb Gender: Female BSA: 1.8 m2 : 1930 Age: 86 yrs BP: 211/92 mmHg Reason For Study: CVA Ordering Physician: Performed By: Zeke Ellis Referring Physician: Juanito Avelar Interpretation Summary The left ventricle is normal in size. The ejection fraction is estimated to be 40-45%. Compared to the prior exam, the left ventricular function is reduced. There appears to be severe hypokinesis to akinesis of mid to distal anterior wall, mid to distal septum, apex and the distal inferolateral wall (New). Trabeculae near apex are visualized. No thrombus is observed. The right ventricle is normal in size, thickness and function. There is moderate mitral regurgitation. Compared to the prior echo study, there has been an increase in the severity of mitral regurgitation. There is mild tricuspid regurgitation. Compared to the prior echo exam, there has been an increase in TR severity. The right ventricular systolic pressure is estimated at 38 mmHg assuming a right atrial pressure of 8 mm Hg. Procedure: A two-dimensional transthoracic echocardiogram with color flow and Doppler was performed. The study quality was technically good. Comparison is made with the echocardiogram of 06/25/15. The patient was in normal sinus rhythm during the exam. Left Ventricle: The left ventricle is normal in size. Proximal septal thickening is noted. There is no echo evidence for significant left ventricular outflow tract obstruction. Trabeculae near apex are visualized. No thrombus is observed. A false chord is noted (normal variant). The ejection fraction is estimated to be 40-45%. Compared to the prior exam, the left ventricular function is reduced. There appears to be severe hypokinesis to akinesis of mid to distal anterior wall, mid to distal septum, apex and the distal inferolateral wall (New). Assessment of diastolic parameters suggests a pseudonormalization pattern, consistent with elevated filling pressures. Right Ventricle: The right ventricle is normal in size, thickness and function. Atria: The left atrium is mildly dilated. The left atrium has mildly increased in size since the prior echo exam. Right atrial size is normal. The interatrial septum is intact with no evidence for an atrial septal defect. Mitral Valve: The mitral valve leaflets are mildly calcified. The mitral valve leaflets appear mildly thickened, but open well. There is mild mitral annular calcification. No significant mitral valve stenosis. There is moderate mitral regurgitation. Compared to the prior echo study, there has been an increase in the severity of mitral regurgitation. Aortic Valve: The aortic valve is trileaflet. Leaflet mobility is minimally reduced. The aortic valve is slightly calcified. There is no aortic valve stenosis. There is trace aortic regurgitation. Tricuspid Valve: Tricuspid leaflets are thickened. There is mild tricuspid regurgitation. The right ventricular systolic pressure is estimated at 38 mmHg assuming a right atrial pressure of 8 mm Hg. Compared to the prior echo exam, there has been an increase in TR severity. Pulmonic Valve: The pulmonic valve is not well seen, but is grossly normal. There is trace pulmonic regurgitation. Great Vessels: The aortic root is normal size. There is aortic root sclerosis/calcification. The ascending aorta is normal in size. The aortic arch not well visualized. The pulmonary artery is normal size. The IVC is of normal diameter and collapses less than 50% with a sniff. This suggests a right atrial pressure of 8 mm Hg. Pericardium/ Pleura There is no pericardial effusion. There is no pleural effusion. MMode/2D Measurements & Calculations LVIDd: 4.7 cm RA long axis LVOT diam LVIDs: 2.9 cm LA A2 area: 17.6 cm FS: 36.7 % LA A4 area: 19.0 cm RA area AoV Opening EPSS: 1.0 cm LA length (vol): 5.5 cm IVSd: 1.1 cm LA vol: 52.1 ml : 14.6 cm Ao root diam LVPWd: 0.78 cm LA vol index RA vol : 37.8 ml asc Aorta RA Diam: 3.0 cm IVC diam: 2.2 cm : 20.8 mm2 LV culver. diameter/BSA LV sys. diameter/BSA RVD1 (basal) RVD2 (mid) (cm/m^2): 2.6 (cm/m^2): 1.6 : 2.5 cm Doppler Measurements & Calculations Ao V2 max MV E max hank MV E/A: 1.2 TR max hank : 106.6 cm/sec : 127.6 cm/sec : 319.7 cm/sec Ao max PG MV A max hank TR max PG : 4.5 mmHg : 107.1 cm/sec : 29.6 mmHg Ao mean PG MV P1/2t: 46.0 msec PA V2 max : 64.6 cm/sec LVOT Max Hank PA mean PG : 61.4 cm/sec SCOTTIE(I,D): 1.8 cm PA Accel Time sev ratio : 0.09 sec MV dec time MV P1/2t max hank Ao V2 mean LV V1 max PG : 0.14 sec : 84.4 cm/sec Ao V2 VTI LV V1 VTI MVA(P1/2t): 4.8 cm2 : 14.2 cm SCOTTIE(V,D) : 1.8 cm2 PA V2 mean SCOTTIE indexed to BSA : 51.5 cm/sec (cm^2/m^2): 0.98 Reading Physician:RUPAL
--- NOTE | 2016-12-25 20:25 | PCM.HPMED ---
Subjective Date of Service Dec 25, 2016 Primary Provider: Admitting Physician: Bj Whalen MD Primary Care Physician: Juanito Avelar MD Attending Physician: Bj Whalen MD Chief Complaint: Confusion and slurred speech History of Present Illness: The patient is an 86-year-old pleasant white female history of DVTs, hypertension and diabetes mellitus who was on Plavix after carotid endarterectomy and has taken off over the last year or so. The patient's daughter America states the patient often has to balance and often falls in her backyard while gardening with her . Proximally a week ago patient fell backwards on her patio and hit her head. Came to [facility] emergency room and had x-rays and all x-rays were negative except for one which showed a fracture of her left fifth toe. Patient was in her usual state of health and had normal mentation when going to bed at 10 PM last night. However , this morning she awoke at 5 AM and the difficulty moving her legs to get to the bathroom. Patient then came back to bed and her right leg "would not do anything". Patient yelled for her to get up and help her. remembers helping getting her back into bed.. The patient's noticed that what she was saying did not make any sense. And she continued talking but was "talking funny". The patient's called her daughter America at 6: 45 AM and America drove over to evaluate the situation. She found her mother is continued to say things that "did not make sense". Patient was also seen picking at things and daughter America decided at that point to drive her to schedule [facility] emergency room. In the emergency room the patient was evaluated by Dr. Otoniel Contreras. Patient was found to have a normal CBC, a normal protime, normal electrolytes, with a slightly elevated blood urea nitrogen, still within normal range. Patient was also found to have a normal creatinine and normal troponin level less than 0.010 mcg/L. Patient had a normal urinalysis. Patient EKG showed sinus rate of 67 left ventricular hypertrophy unchanged from prior. Q waves in V1 through V3 also unchanged from prior EKG chest x-ray showed no acute cardiopulmonary disease and CT of the head showed no acute intracranial abnormalities with cerebral volume loss and chronic microvascular ischemic changes. The patient continued to have altered mental status and the patient was brought into the hospital, under the care of the hospitalist service, under observation for further evaluation and treatment Review of Systems: General: The patient has no new constitutional symptoms. No recent weight loss , no sweats, fever and no chills. HEENT: Patient has no headache, patient has no diplopia, patient has no changes in vision. The patient wears progressive lenses and has had bilateral cataract surgery. Patient has no problems with her ears, nose or throat. Patient has no new dental problems. The patient has full upper dentures and partial lower dentures. Patient has no pharyngitis or history of thrush. Neck: Patient has no stiffness in the neck. Patient has no lymphadenopathy. Patient has no other problems with their neck. Pulmonary: Patient has no shortness of breath, no cough, no expectoration of sputum. Patient has no pleurisy. Patient has no chest pain. Patient has no history of asthma or COPD. Cardiovascular: Patient has no chest pain. Patient does have a history of a heart murmur. Patient has no palpitations. Patient has no known history of myocardial infarction. Patient has no history of coronary artery disease. Gastrointestinal: Patient has no history of hepatitis A, B or C. Patient has no history of peptic ulcer disease. Patient has no history of gastroesophageal reflux disease. Patient has no history of nausea, vomiting, or diarrhea. Patient has no history of hematemesis, hematochezia, or melena. Patient has no history of colitis. Renal: Patient has no history of kidney disease. No history of kidney stones. Genitourinary: Patient has no history of dysuria, frequency, or incontinence. Patient has no previous history of genitourinary problems. Musculoskeletal: Patient has no history of muscular skeletal problems. Does complain of some right hip pain, possibly from arthritis. Neurologic: Patient has no previous history of stroke, no history of seizure, no history of TIA. Psychiatric: Patient has no current psychiatric problems. The patient did have depression for a short period of time and what was on citalopram but no longer takes his medication and no longer has depression. The remainder of the entire review of systems was reviewed with patient and is as mentioned above otherwise negative. Allergies Coded Allergies: lisinopril (Unverified Allergy, Mild, extremity aching, 12/25/16) pravastatin (Verified Allergy, Mild, extremity aching, 12/25/16) Cephalosporins (Verified Allergy, Unknown, 12/25/16) Penicillins (Verified Allergy, Unknown, 12/25/16) TAPE (Verified Allergy, Unknown, 12/25/16) amlodipine (Unverified Allergy, Unknown, 12/25/16) diltiazem (Unverified Allergy, Unknown, 12/25/16) losartan (Verified Allergy, Unknown, 12/25/16) nifedipine (Verified Allergy, Unknown, 12/25/16) olmesartan medoxomil (Unverified Allergy, Unknown, 12/25/16) trazodone (Verified Allergy, Unknown, 12/25/16) Contrast Media (Unverified Adverse Reaction, Intermediate, fainting, ) has taken dye when given "something beforehand" codeine (Verified Adverse Reaction, Intermediate, Nausea,Vomiting, 12/25/16 ) hydromorphone (Verified Adverse Reaction, Mild, CONFUSION, ANXIETY, RESTLESSNESS, 12/25/16) Home Medications Scheduled Amlodipine (Amlodipine) 10 Mg Tablet 10 MG PO DAILY (Reported) Aspirin (Aspirin) 81 Mg Tablet 81 MG PO DAILY (Reported) Cholecalciferol (Vitamin D3) (Vitamin D3) 1,000 Unit Tab.chew 1,000 UNIT PO DAILY (Reported) Citalopram (Citalopram) 10 Mg Tablet 10 MG PO DAILY (Reported) Clopidogrel (Clopidogrel) 75 Mg Tablet 75 MG PO DAILY (Reported) Gabapentin (Gabapentin) 300 Mg Capsule 600 MG PO TID (Reported) Hydrochlorothiazide (Hydrochlorothiazide) 50 Mg Tablet 50 MG PO DAILY (Reported ) Isosorbide MN (Isosorbide MN) 10 Mg Tablet 20 MG PO TID (Reported) 7 hours apart Metoprolol Tartrate (Metoprolol Tartrate) 50 Mg Tablet 100 MG PO BID (Reported) Multivitamin (Once Daily) 1 Each Tablet 1 EACH PO DAILY (Reported) Nortriptyline (Nortriptyline) 10 Mg Capsule 10 MG PO DAILY (Reported) Pantoprazole DR (Pantoprazole DR) 40 Mg Tablet.dr 40 MG PO HS (Reported) Verapamil ER (Verapamil ER) 360 Mg Cap24h.pel 360 MG PO DAILY (Reported) Scheduled PRN Acetaminophen (Acetaminophen) 325 Mg Tablet 325 MG PO DAILY PRN PRN For Pain ( Reported) Hydrocodone-Acetaminophen 10-325 mg (Hydrocodone-Acetaminophen 10-325 mg) 1 Each Tablet 1 TABLET PO Q6H PRN PRN For Pain (Reported) Nitroglycerin SL (Nitrostat) 0.4 Mg Tablet 0.4 MG SL Q5MIN PRN PRN For Chest Pain PMH Significant peripheral vascular disease (patient status post angiography and possible angioplasty in 2008, reportedly complicated by a large retroperitoneal hematoma and temporary shock) with DVT's Carotid stenosis with history of left carotid endarterectomy. Patient has a history of gout The patient has a history of esophageal spasms for which she takes occassional nitroglyerin Skin cancer. Diabetes mellitus, which is reportedly diet controlled Hypertension Surgical History Benign neck mass removed in April 2015 Cardiac cath October 2013 with no occlusive obstructive disease Left carotid endarterectomy at [facility] by Virgil Ovalle Colectomy in 1994 for diverticulitis Cholecystectomy Hysterectomy Bladder sling in 1999 Back surgery 2004 Appendectomy 1944 Ectopic status post oophorectomy in 1951 Thyroid surgery Carotid endarterectomy Cataract surgery Tonsillectomy Family History The patient's father at 82 of myocardial infarction The patient's mother at the age 60 of a myocardial infarction The patient 7 brothers all from myocardial infarctions The patient's 3 sisters all of myocardial infarctions. Social History Hx Alcohol Use: No Hx Substance Use: No Hx Tobacco Use: No Smoking Status: Never Smoker Living Arrangement: with Family (the patient lives with her of 65 years) Additional Information The patient was born in [place], [place]. The agent name the family moved to [place], [place]. The patient met her after graduating high school and got at the age of 20. She has been to her for 86 years. They had 2 children. The patient had one tubal and several miscarriages. She has 1 daughter America and one son who lives in [place] her daughter America is in the room with her today. Patient's was in the [employer] for years and they moved from [facility] to [place] to back to [place] for 5 years and [facility] in 1967 and they have stayed there since. 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 She is currently retired with her . Exam Vital Signs Vital Sign - Last Date Time Temp Pulse Resp B/P Pulse Ox O2 Delivery O2 Flow Rate FiO2 12/25/16 17:14 36.5 65 18 213/100 95 Room Air Exam General: Patient is resting comfortably in bed. She is in no apparent distress. HEENT: Head is atraumatic and normocephalic. Eyes: Pupils are equally round and reactive to light and accommodation. Extraocular muscles are intact. Sclera are white, anicteric. Subconjunctival mucosa is pink. Ears and nose are unremarkable. Oropharynx: There is no mucosal lesions, there is no thrush, there is no pharyngitis. Neck: Is supple, there are no nodes, or masses or tenderness. Chest: Is clear to auscultation and percussion. There are no rales, rhonchi, wheezes or rubs. Heart: Rate, rhythm is regular. There is a grade 1/6 systolic ejection murmur heard best at left sternal border. There is no rub or gallop. Abdomen: Good bowel sounds are present. Abdomen is soft, nontender, no organomegaly or masses were appreciated. Extremities: Are symmetrical and well perfused. There is no edema, there is no cellulitis, no rash. Neurologic: There are no focal neurological deficits. Cranial nerves II through XII are intact. There are no sensory or motor deficits. Psychiatric: Patients mood is calm and she shows no sign of agitation. Genital: Deferred Rectal: Deferred Lab and Diagnostics Result Diagram: 12/25/16 0935 12/25/16 0935 X-Rays, CTs and MRIs PROCEDURE: X-RAY CHEST ONE VIEW, PORTABLE ([id number]) INDICATIONS: altered mental status TECHNIQUE: One view of the chest was acquired. COMPARISON: [facility], CR, XR CHEST 1VW (PORTABLE), 08/02/2016, 14: 13. FINDINGS: Surgical changes and devices: None. Lungs and pleura: No pleural effusions or pneumothorax. Lungs are clear. Aeration of the lungs is similar to the prior study. There is mild elevation of the right diaphragm. . Mediastinum: Mediastinal contours appear normal. Heart size is normal. There is aortic atherosclerosis Bones and chest wall: No suspicious bony lesions. Degenerative changes of the shoulders and spine are present. Overlying soft tissues appear unremarkable. IMPRESSION: Stable chest. No acute cardiopulmonary process is evident. Dictated by: Marco A Kelly M.D. on 12/25/2016 at 9:04 Approved by: Marco A Kelly M.D. on 12/25/2016 at 9:05 PROCEDURE: CT BRAIN WITHOUT CONTRAST ([id number]) INDICATIONS: Stroke TECHNIQUE: Noncontrast 4.5 mm thick angled axial sections acquired from the foramen magnum to the vertex, with coronal reformats. COMPARISON: [facility], CT, CT BRAIN WO CON, 12/20/2016, 17:52. FINDINGS: Image quality: Excellent. CSF spaces: Basal cisterns are patent. No extra-axial fluid collections. The ventricles are symmetric in size and shape. Brain: No intracranial bleeds or masses. There is moderate cerebral volume loss for age, with resultant ventricular and sulcal prominence. There are moderate periventricular and deep white matter chronic small vessel ischemic changes. There is intracranial internal carotid artery atherosclerosis. Skull and face: Calvarium and visualized facial bones appear intact, without suspicious lesions. Sinuses: Visualized sinuses and mastoids are clear. IMPRESSION: 1. No acute intracranial abnormalities. 2. Cerebral volume loss and chronic microvascular ischemic changes. Dictated by: Lana Charles M.D. on 12/25/2016 at 9:34 Approved by: Lana Charles M.D. on 12/25/2016 at 9:36 Cardiac Echo Impressions Echocardiogram Report Name: JACK TEJEDA Study Date: 12/25/2016 Height: 65 in Hospital Exam Location: [facility] Weight: 164 lb Gender: Female BSA: 1.8 m2 : 1930 Age: 86 yrs BP: 211/92 mmHg Reason For Study: CVA Ordering Physician: Performed By: Zeke Ellis Referring Physician: Juanito Avelar Interpretation Summary The left ventricle is normal in size. The ejection fraction is estimated to be 40-45%. Compared to the prior exam, the left ventricular function is reduced. There appears to be severe hypokinesis to akinesis of mid to distal anterior wall, mid to distal septum, apex and the distal inferolateral wall (New). Trabeculae near apex are visualized. No thrombus is observed. The right ventricle is normal in size, thickness and function. There is moderate mitral regurgitation. Compared to the prior echo study, there has been an increase in the severity of mitral regurgitation. There is mild tricuspid regurgitation. Compared to the prior echo exam, there has been an increase in TR severity. The right ventricular systolic pressure is estimated at 38 mmHg assuming a right atrial pressure of 8 mm Hg. Assessment & Plan The patient is an 86-year-old pleasant white female history of DVTs, hypertension and diabetes mellitus who was on Plavix after carotid endarterectomy and has taken off over the last year or so. The patient's daughter America states the patient often has to balance and often falls in her backyard while gardening with her . Proximally a week ago patient fell backwards on her patio and hit her head. Came to [facility] emergency room and had x-rays and all x-rays were negative except for one which showed a fracture of her left fifth toe. Patient was in her usual state of health and had normal mentation when going to bed at 10 PM last night. However , this morning she awoke at 5 AM and the difficulty moving her legs to get to the bathroom. Patient then came back to bed and her right leg "would not do anything". Patient yelled for her to get up and help her. remembers helping getting her back into bed.. The patient's noticed that what she was saying did not make any sense. And she continued talking but was "talking funny". The patient's called her daughter America at 6: 45 AM and America drove over to evaluate the situation. She found her mother is continued to say things that "did not make sense". Patient was also seen picking at things and daughter America decided at that point to drive her to schedule [facility] emergency room. In the emergency room the patient was evaluated by Dr. Otoniel Contreras. Patient was found to have a normal CBC, a normal protime, normal electrolytes, with a slightly elevated blood urea nitrogen, still within normal range. Patient was also found to have a normal creatinine and normal troponin level less than 0.010 mcg/L. Patient had a normal urinalysis. Patient EKG showed sinus rate of 67 left ventricular hypertrophy unchanged from prior. Q waves in V1 through V3 also unchanged from prior EKG chest x-ray showed no acute cardiopulmonary disease and CT of the head showed no acute intracranial abnormalities with cerebral volume loss and chronic microvascular ischemic changes. The patient continued to have altered mental status and the patient was brought into the hospital, under the care of the hospitalist service, under observation for further evaluation and treatment. # Encephalopathy and slurred speech, present at the time of admission. Active - Possible acute cerebrovascular accident despite negative CT scan. Therefore, will check MRI stroke protocol. - Possible reversible ischemic neurological deficit - Patient was recently taken off Plavix in the last year or so, as she was placed on Plavix after a left carotid endarterectomy. - Consider restarting Plavix depending on MRI findings and carotid Dopplers. - We will will obtain neurology consultation with Dr. Virgil Lechuga. # Significant peripheral vascular occlusive disease, present at the time of admission. Active - Patient has had a left carotid endarterectomy - Patient had a angioplasty of what sounds like the right iliac artery which was complicated by tear in the artery a large retroperitoneal hematoma with temporary hemorrhagic shock. Patient received 7 pints of blood and suffered complications of deep venous thrombosis. - We will repeat carotid Dopplers - MRI stroke protocol. # History of esophageal spasms and this is complicating her ability to swallow according to speech therapy, present on admission this patient was seen in the ER by speech therapy. Active - Continue Imdur as nitroglycerin appears to alleviate the patient's esophageal spasms. - We may want to add when necessary nitroglycerin sublingual - We will consider GI evaluation. - We will consider modified barium swallow. - Appreciate speech therapy consult and will ask him to continue to follow. # Diabetes mellitus, present on admission. Active - Check serum glucose before meals and at bedtime. - Heart healthy consistent carbohydrate diet - Sliding-scale insulin coverage. # Hypertension, present on admission. Active - We will allow permissive hypertension for 24 hours after patient's cerebrovascular event. - We will give labetalol for a systolic blood pressure greater than 220 or diastolic blood pressure greater than 110 - We will then begin to control blood pressure more aggressively after 24 hours. # Patient appears to have had a previous myocardial infarction and appears to have chronic systolic congestive heart failure with an ejection fraction of 40- 45% on echocardiogram, present on admission. Active - Patient appears to have evidence of ischemic cardiomyopathy. We will order serial troponins - Check BNP - Check chest x-ray - We will consider cardiology consultation. She is a very strong family history of ischemic cardiac disease as both her parents and all 10 of her siblings from myocardial infarctions. Disposition: As patient appears to have suffered a significant cerebrovascular event either a cerebrovascular accident or reversible ischemic neurological deficit which is not completely reversed as of yet, the patient will be here more than 2 midnights for evaluation and treatment of the above problem. Therefore, the patient was admitted as an inpatient. Pain Evaluation: Adequate Pain Control VTE Prophylaxis: Sub-Q Heparin (Unfractionated) VTE Mechanical Devices: Intermittant Pneumatic CD Resuscitation Status: CPR: Attempt Resuscitation Bj Whalen MD Dec 25, 2016 20:25
[2016-12-26 05:10] VITALS: BP 204/88; PULSE 66; RESP 20; O2SAT 95
[2016-12-26 06:38] LABS: BASOPHILS % (AUTO) 0.6 % (0-3); EOSINOPHILS % (AUTO) 5.7 % (0-5); Mean Corpuscular Hemoglobin 32.9 pg (27.0-35.0); Mean Corpuscular Volume 99.5 fL (81-100); NEUTROPHILS % (AUTO) 58.7 % (40-74); Platelet Count 177 bil/L (150-400)
--- NOTE | 2016-12-26 06:43 | NUR ---
MRI Off floor with RN for MRI. Valium 5mg IV administered prior to procedure. Patient noted to become confused almost instantly following administration but tolerated procedure well. Once returned to unit she continued with mild confusion which slowly resolved throughout the shift. Bed alarm on and nursing positioned near room for frequent monitoring. MD notified of MRI results. To continue with permissive hypertension through the night.
[2016-12-26 06:59] LABS: Magnesium 1.6 mg/dL (1.6-2.6)
[2016-12-26 08:00] VITALS: PULSE 74
[2016-12-26] MEDS: Heparin 5,000 Unit/mL Inj SUBQ SCH ×2 (08:11→20:33)
--- NOTE | 2016-12-26 09:20 | DRSVH ---
PROCEDURE: MRI STROKE PROTOCOL ([id number]) Pre- and post-contrast brain MRI, non-contrast brain MR angiogram, pre- and postcontrast neck MR susi ogram INDICATIONS: Acute Encephalopathy/Garbled Speech TECHNIQUE: Brain: Noncontrast axial T1 spin echo, axial T2 fast spin echo, sagittal and axial FLAIR, coronal T2 fast spin echo, axial gradient echo, axial diffusion and ADC through the brain. After the administr ation of contrast, axial 3D VIBE of the cranial vasculature and brain. Brain MRA: Non-contrast 3-D time of flight MR angiogram, with multiple qwupail-efawsogqd-wirgadmwar (MIP) reformats performed. Neck MRA: Axial and sagittal TruFISP through the neck. Coronal dynamic MR angiogram during administ ration of contrast in the arterial and venous phases, with 3-dimenstional criobqs-brsfooxwu-alrfceqvs n (MIP) reformats constructed from subtraction images. COMPARISON: [facility], MR, BRAIN W&W/O CONTRAST, 03/31/2013, 15:16. [facility], CT, CT BRAIN WO CON, 10/22/2015, 11:06. [facility], CT, CT BRAIN WO CON, 08/01/2016, 21:18. [facility], CT, CT BRAIN WO CON, 12/20/2016, 17:52. [facility], CT, CT BRAIN WO CON, 12/25/2016, 9:28. FINDINGS: Image quality: Limited by patient motion. No BRAIN: CSF spaces: Diffuse process CSF space noted. Basal cisterns are patent. No extra-axial fluid collect ions. Brain: No intracranial bleeds or mass effects. Raines-white matter interface is normal. Diffusion we ighted images show no acute ischemic insults. Scattered punctate and confluent areas of increased T2 signal noted in the paraventricular and subcortical white matter tracts which have progressed little since prior MRI obtained 03/31/13. A few, scattered, punctate susceptibility weighted hypointensities are noted in the cerebral hemispheres bilaterally. Brainstem appears normal. Normal intravascular f low voids are present. No abnormal intracranial enhancement. Skull and face: Calvarial marrow signal is normal. 0.9 cm in maximum diameter lesion is noted in the right parietal scalp may represent a sebaceous cyst; recommend correlation with clinical data. Orbit s appear normal. Sinuses: Sinuses and mastoids are clear. BRAIN MR ANGIOGRAM: Anterior circulation: Intracranial internal carotid arteries are normal in size and enhancement. Mil d atherosclerotic irregularity noted in the cavernous and supraclinoid segments of the internal carot id arteries bilaterally. The flow within the paired anterior cerebral arteries is normal and symmetri c. 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 The flow within the middle cerebral arteries is normal and symmetric. The anterior communicating artery is seen. No st enoses, occlusions, or aneurysms. Posterior circulation: Atherosclerotic irregularity noted in the proximal V4 segment of the right karely tebral artery which causes mild stenosis. The flow within the posterior cerebral arteries is normal a nd symmetric. The right posterior cerebral artery has a origin which is a congenital anatomic v ariant. No stenoses, occlusions, or aneurysms. NECK MR ANGIOGRAM: Carotids: Great vessels demonstrate a conventional anatomy as they arise from the aortic arch. Athe rosclerotic irregularity noted in the origin of the left common carotid artery which causes moderate stenosis. Right common carotid artery appears fully patent. Normal flow within the internal carotid a rteries bilaterally His clinical irregularity is noted in the origin of the right internal carotid artery which causes le ss than 50% stenosis of the vessel. Left internal carotid artery appears widely patent. Posterior circulation: The origins of the vertebral arteries appear patent. More superior portions of both vertebral arteries demonstrate normal course and caliber, and join to form a normal appearing basilar artery. Miscellaneous: Atherosclerotic irregularity is noted in the proximal left subclavian artery has a mod erate stenosis immediately proximal to the origin of the left vertebral artery. The atherosclerotic i rregularity noted in the origin and proximal segment of the right vertebral artery which causes multi focal high-grade stenoses. Atherosclerotic irregularity of the origin of left vertebral artery causes a focal high-grade stenosis. IMPRESSION: BRAIN MRI: 1. No acute intracranial disease process. 2. No areas of acute infarction. 3. Diffuse volume loss. 4. Scattered foci of increased T2 signal in the periventricular and subcortical white matter tracts. No finding may represent sequela of chronic microvascular ischemic changes, however the finding is no nspecific and other etiologies including chronic hypertension, diabetes, vasculitis and demyelinating process can produce a similar appearance. Please correlate with clinical history. 5. Few, scattered, punctate susceptibility weighted hypointensities in the cerebral hemispheres. Find ing is nonspecific but may represent sequela of MR angiopathy or hypertensive microbleeds. Please cor relate with clinical history. BRAIN MR ANGIOGRAM: 1. Moderate, short segment stenosis involving the proximal V4 segment of the right vertebral artery. 2. Mild atherosclerotic irregularity involving the supraclinoid and cavernous segments of the interna l carotid arteries bilaterally without measurable stenosis. NECK MR ANGIOGRAM: 1. Less than 50% stenosis of the origin of the right internal carotid artery. 2. High-grade, multifocal stenoses involving the origin and proximal right vertebral artery. 3. High grade stenosis involving the origin of the left vertebral artery. 4. Moderate stenoses involving the origin of the carotid artery in the proximal left subclavian arter y. The estimate of stenosis included in the report of the imaging study was calculated using the NASCET method Dictated by: Tejal Orellana MD, PhD on 12/26/2016 at 8:58 Approved by: Tejal Orellana MD, PhD on 12/26/2016 at 9:18
[2016-12-26 10:04] VITALS: BP 202/76; PULSE 68; RESP 18; O2SAT 95
[2016-12-26] MEDS: 0.9% Sodium Chloride 1,000 ML IV SCH ×2 (10:13→14:24)
--- NOTE | 2016-12-26 11:12 | NUR ---
Case Management: [facility] delivered and explained to patient. Signed original placed in chart. Copy left at bedside. Octavia Quach RN
[2016-12-26] MEDS ORDERED: HYDROcodone-APAP 10-325 mg PO PRN (12:55)
[2016-12-26] MEDS ORDERED: Magnesium Sulf 4 Gm/100 mL H2O 4 GM in IV Premix 1 EACH IV ONE (13:10)
[2016-12-26 13:44] VITALS: BP 194/83; PULSE 68; RESP 18; O2SAT 97
[2016-12-26] MEDS: Pantoprazole 40 mg ER24 Tablet PO SCH (13:55)
--- NOTE | 2016-12-26 15:34 | NUR ---
NUTRITION ASSESSMENT: ASSESS: 86YO F admit with workup for CVA, altered mental status and difficulty swallowing (noted h/o esophageal spasms). ST Following. PMHX: PVD,DM,Gout, Esophageal spasms DIET: Soft. PO bites-75% LABS: Alb 4.1 MEDS: Reviewed GI: No BM WEIGHT: 73.3kg BMI: 26.9 EST.NEEDS: 5696-4223 (25-30kcal/kg) 70-90g pro (1.0-1.2g/kg pro) NUTRITION DIAGNOSIS: (1) Chew/swallowing difficulty related to dysphagia as evidenced by modified diet texture per ST. INTERVENTION: (1) Diet advancement per ST. MONITOR/EVALUATE: PO intake, lab values, texture tolerance. F/U per moderate risk.
[2016-12-26 16:34] VITALS: BP 178/76; PULSE 61; RESP 18; O2SAT 96
--- NOTE | 2016-12-26 18:03 | NUR ---
Activity/mentation/BP Pt frequently self transferring despite safety education. Bed alarm in place at all times. Pt with some forgetfulness, easily reoriented. Pt given [facility] x1 for c/o FRANCOIS rating 6/10 and noticeably more confused following administration of medication. Staff providing frequent reorientation. BP improving as shift goes on, routine BP meds given. Bed in lowest, locked position and call light in reach.
--- NOTE | 2016-12-26 19:53 | DRSVH ---
PROCEDURE: US BILATERAL DUPLEX DOPPLER IMAGING OF THE CAROTIDS ([id number]) INDICATIONS: 86 year-old female with acute encephalopathy and garbled speech. TECHNIQUE: Color and pulse Doppler interrogation was performed of both carotid systems, with image documentation and velocity measurements. COMPARISON: [facility], US, CAROTID DUPLEX DOPPLER BILAT, 03/12/2015, 9:48. FINDINGS: Stenosis calculations are based on SRU (Society of Radiologists in Ultrasound) criteria. Right side: Brachial blood pressure: 178/76 mm Hg. Common carotid artery peak systolic velocity: 103 cm/sec. Internal carotid artery peak systolic velocity: Not significantly changed from 165-183 cm/sec. Internal carotid artery end diastolic velocity: 25 cm/sec. External carotid artery peak systolic velocity: 212 cm/sec. ICA/CCA peak systolic ratio: 1.77. Raines scale imaging description: There is bulky atherosclerotic plaque within the proximal internal ca rotid artery. Percent internal carotid artery stenosis: 50-69%. Vertebral artery: Flow direction is antegrade. Left side: Brachial blood pressure: Unable to be acquired due to intravenous catheter. Common carotid artery peak systolic velocity: 71 cm/sec. Internal carotid artery peak systolic velocity: Normalized from 451 down to 65 cm/sec. Internal carotid artery end diastolic velocity: 12 cm/sec. External carotid artery peak systolic velocity: 89 cm/sec. ICA/CCA peak systolic ratio: 1.09. Raines scale imaging description: No atherosclerotic plaque. Percent internal carotid artery stenosis: 0%. Vertebral artery: Flow direction is antegrade. IMPRESSION: 1. 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 2. No significant interval change in 50-69% luminal stenosis of the proximal right internal carotid a rtery. Dictated by: Yonatan Mims M.D. on 12/26/2016 at 19:45 Approved by: Yonatan Mims M.D. on 12/26/2016 at 19:51
[2016-12-26 20:22] VITALS: BP 156/69; PULSE 67; RESP 16; O2SAT 97
--- NOTE | 2016-12-26 23:04 | PCM.PNMED ---
Subjective Date of Service Dec 26, 2016 Subjective The patient is feeling better. However, the family does not think that her mental status is back to baseline. She is ambulating with physical therapy with her walker and assistance. Her speech has improved. However she complains of a significant headache. Exam Vital Signs Vital Sign - Last Date Time Temp Pulse Resp B/P Pulse Ox O2 Delivery O2 Flow Rate FiO2 12/26/16 20:22 36.4 67 16 156/69 97 Room Air Intake and Output 12/25/16 12/25/16 12/26/16 Cumulative From/Thru 15:00 23:00 07:00 12/25/16 09:10 - 12/26/16 05:59 Intake Total 325 ml 1226 ml 1551 ml Output Total 1050 ml 1800 ml 2850 ml Balance -725 ml -574 ml -1299 ml Intake Oral 325 ml 400 ml 725 ml IV Total 826 ml 826 ml Output Urine Total 1050 ml 1800 ml 2850 ml Exam General: Patient is resting comfortably in bed. She is in no apparent distress. However, she complains of headache. HEENT: Head is atraumatic and normocephalic. Eyes: Pupils are equally round and reactive to light and accommodation. Extraocular muscles are intact. Sclera are white, anicteric. Subconjunctival mucosa is pink. Ears and nose are unremarkable. Oropharynx: There is no mucosal lesions, there is no thrush, there is no pharyngitis. Neck: Is supple, there are no nodes, or masses or tenderness. Chest: Is clear to auscultation and percussion. There are no rales, rhonchi, wheezes or rubs. Heart: Rate, rhythm is regular. There is a grade 1/6 systolic ejection murmur heard best at left sternal border. There is no rub or gallop. Abdomen: Good bowel sounds are present. Abdomen is soft, nontender, no organomegaly or masses were appreciated. Extremities: Are symmetrical and well perfused. There is no edema, there is no cellulitis, no rash. Neurologic: There are no focal neurological deficits. Cranial nerves II through XII are intact. There are no sensory or motor deficits. Psychiatric: Patients mood is calm and she shows no sign of agitation. Genital: Deferred Rectal: Deferred Lab and Diagnostics Result Diagram: 12/26/16 0605 12/26/16 0605 X-Rays, CTs and MRIs PROCEDURE: X-RAY CHEST ONE VIEW, PORTABLE ([id number]) INDICATIONS: altered mental status TECHNIQUE: One view of the chest was acquired. COMPARISON: [facility], CR, XR CHEST 1VW (PORTABLE), 08/02/2016, 14: 13. FINDINGS: Surgical changes and devices: None. Lungs and pleura: No pleural effusions or pneumothorax. Lungs are clear. Aeration of the lungs is similar to the prior study. There is mild elevation of the right diaphragm. . Mediastinum: Mediastinal contours appear normal. Heart size is normal. There is aortic atherosclerosis Bones and chest wall: No suspicious bony lesions. Degenerative changes of the shoulders and spine are present. Overlying soft tissues appear unremarkable. IMPRESSION: Stable chest. No acute cardiopulmonary process is evident. Dictated by: Marco A Kelly M.D. on 12/25/2016 at 9:04 Approved by: Marco A Kelly M.D. on 12/25/2016 at 9:05 PROCEDURE: CT BRAIN WITHOUT CONTRAST ([id number]) INDICATIONS: Stroke TECHNIQUE: Noncontrast 4.5 mm thick angled axial sections acquired from the foramen magnum to the vertex, with coronal reformats. COMPARISON: [facility], CT, CT BRAIN WO CON, 12/20/2016, 17:52. FINDINGS: Image quality: Excellent. CSF spaces: Basal cisterns are patent. No extra-axial fluid collections. The ventricles are symmetric in size and shape. Brain: No intracranial bleeds or masses. There is moderate cerebral volume loss for age, with resultant ventricular and sulcal prominence. There are moderate periventricular and deep white matter chronic small vessel ischemic changes. There is intracranial internal carotid artery atherosclerosis. Skull and face: Calvarium and visualized facial bones appear intact, without suspicious lesions. Sinuses: Visualized sinuses and mastoids are clear. IMPRESSION: 1. No acute intracranial abnormalities. 2. Cerebral volume loss and chronic microvascular ischemic changes. Dictated by: Lana Charles M.D. on 12/25/2016 at 9:34 Approved by: Lana Charles M.D. on 12/25/2016 at 9:36 Cardiac Echo Impressions Echocardiogram Report Name: JACK TEJEDA Study Date: 12/25/2016 Height: 65 in Hospital Exam Location: [facility] Weight: 164 lb Gender: Female BSA: 1.8 m2 : 1930 Age: 86 yrs BP: 211/92 mmHg Reason For Study: CVA Ordering Physician: Performed By: Zeke Ellis Referring Physician: Juanito Avelar Interpretation Summary The left ventricle is normal in size. The ejection fraction is estimated to be 40-45%. Compared to the prior exam, the left ventricular function is reduced. There appears to be severe hypokinesis to akinesis of mid to distal anterior wall, mid to distal septum, apex and the distal inferolateral wall (New). Trabeculae near apex are visualized. No thrombus is observed. The right ventricle is normal in size, thickness and function. There is moderate mitral regurgitation. Compared to the prior echo study, there has been an increase in the severity of mitral regurgitation. There is mild tricuspid regurgitation. Compared to the prior echo exam, there has been an increase in TR severity. The right ventricular systolic pressure is estimated at 38 mmHg assuming a right atrial pressure of 8 mm Hg. Assessment & Plan The patient is an 86-year-old pleasant white female history of DVTs, hypertension and diabetes mellitus who was on Plavix after carotid endarterectomy and has taken off over the last year or so. The patient's daughter America states the patient often has to balance and often falls in her backyard while gardening with her . Proximally a week ago patient fell backwards on her patio and hit her head. Came to [facility] emergency room and had x-rays and all x-rays were negative except for one which showed a fracture of her left fifth toe. Patient was in her usual state of health and had normal mentation when going to bed at 10 PM last night. However , this morning she awoke at 5 AM and the difficulty moving her legs to get to the bathroom. Patient then came back to bed and her right leg "would not do anything". Patient yelled for her to get up and help her. remembers helping getting her back into bed.. The patient's noticed that what she was saying did not make any sense. And she continued talking but was "talking funny". The patient's called her daughter America at 6: 45 AM and America drove over to evaluate the situation. She found her mother is continued to say things that "did not make sense". Patient was also seen picking at things and daughter America decided at that point to drive her to [facility] emergency room. In the emergency room the patient was evaluated by Dr. Otoniel Contreras. Patient was found to have a normal CBC, a normal protime, normal electrolytes, with a slightly elevated blood urea nitrogen, still within normal range. Patient was also found to have a normal creatinine and normal troponin level less than 0.010 mcg/L. Patient had a normal urinalysis. Patient EKG showed sinus rate of 67 left ventricular hypertrophy unchanged from prior. Q waves in V1 through V3 also unchanged from prior EKG chest x-ray showed no acute cardiopulmonary disease and CT of the head showed no acute intracranial abnormalities with cerebral volume loss and chronic microvascular ischemic changes. The patient continued to have altered mental status and the patient was brought into the hospital, under the care of the hospitalist service, under observation for further evaluation and treatment. # Encephalopathy and slurred speech, present at the time of admission. Active - Possible acute cerebrovascular accident despite negative CT scan. MRI stroke protocol fails to reveal source of patient's symptoms.. - Possible reversible ischemic neurological deficit - Patient was recently taken off Plavix in the last year or so, as she was placed on Plavix after a left carotid endarterectomy. - Consider restarting Plavix depending on MRI findings and carotid Dopplers. - We will will obtain neurology consultation with Dr. Virgil Lechuga. Discussed with Dr. Virgil Lechuga and he is unable to see the patient as he is not billing control clerk. However, he recommends repeating the MRI in 48 hours to 72 hours to see if the patient has indeed had a stroke. In some cases the initial MRI will be negative and follow-up will show the defect. # Significant peripheral vascular occlusive disease, present at the time of admission. Active - Patient has had a left carotid endarterectomy - Patient had a angioplasty of what sounds like the right iliac artery which was complicated by tear in the artery a large retroperitoneal hematoma with temporary hemorrhagic shock. Patient received 7 pints of blood and suffered complications of deep venous thrombosis. - We will repeat carotid Dopplers - MRI stroke protocol will be repeated as recommended by neurology in 2-3 days.. # History of esophageal spasms and this is complicating her ability to swallow according to speech therapy, present on admission this patient was seen in the ER by speech therapy. Active - Continue Imdur as nitroglycerin appears to alleviate the patient's esophageal spasms. - We may want to add when necessary nitroglycerin sublingual - We will consider GI evaluation. - We will consider modified barium swallow. - Appreciate speech therapy consult and will ask him to continue to follow. # Diabetes mellitus, present on admission. Active - Check serum glucose before meals and at bedtime. - Heart healthy consistent carbohydrate diet - Sliding-scale insulin coverage. # Uncontrolled Hypertension, present on admission. Active systolic blood pressures over 200 - We allowed permissive hypertension for 24 hours after patient's cerebrovascular event. - We will give labetalol for a systolic blood pressure greater than 220 or diastolic blood pressure greater than 110 - We will then begin to control blood pressure more aggressively today with patient's home regimen of hydralazine and metoprolol. Patient states that after her left carotid endarterectomy her blood pressure was extremely hard to control in the systolic blood pressure was often over 200. # Patient appears to have had a previous myocardial infarction and appears to have chronic systolic congestive heart failure with an ejection fraction of 40- 45% on echocardiogram, present on admission. Active - Patient appears to have evidence of ischemic cardiomyopathy. We will order serial troponins - Check BNP - Check chest x-ray - We will consider cardiology consultation. She is a very strong family history of ischemic cardiac disease as both her parents and all 10 of her siblings from myocardial infarctions. - And aggressive blood pressure control with hydralazine and metoprolol. Continue aspirin. We will add atorvastatin. And will check lipid panel. Disposition: As patient appears to have suffered a significant cerebrovascular event either a cerebrovascular accident or reversible ischemic neurological deficit which is not completely reversed as of yet, the patient will be here another 24-48 hours for evaluation and treatment of the above problem. Pain Evaluation: Adequate Pain Control VTE Prophylaxis: Sub-Q Heparin (Unfractionated) VTE Mechanical Devices: Intermittant Pneumatic CD Resuscitation Status: CPR: Attempt Resuscitation Bj Whalen MD Dec 26, 2016 23:04
[2016-12-27] VITALS (10 sets, daily range): BP systolic 135–211; BP diastolic 63–97; PULSE 59–74; RESP 18–20; O2SAT 92–97
[2016-12-27] MEDS: 0.9% Sodium Chloride 1,000 ML IV SCH (02:08)
--- NOTE | 2016-12-27 06:15 | NUR ---
ACTIVITY/MENTATION Pt has not slept during night, except for very brief moments. Pt has been up to BR a few times, slight unsteadiness. Pt has used call light at times, and forgetful at other times, setting off bed alarm. Pt has had intermittent confusion. Pt thought it was raining hard, and RN and pt figured out that the IV pump was what pt thought was the sound of rain. Pt also stated hearing "loud trucks outside". Pt stated, "maybe I'm hallucinating, don't tell them, or I won't ever be able to go home." Pt has also had moments of clarity, stating, "I have to have another test (MRI) before I go." Pt confused on time of day. Staff have repeatedly found pt trying to call her at all hours of the night. Pt did call pt early in the am, stating that she was going home, and for to come and pick her up. Pts arrived, and soon realized that pt was not going to be discharged. Pts stated, "something isn't quite right, she called me, and was clear and I could understand her, so I thought she was going home. When I brought her here, she was rambling, and I had no idea what she was saying. She makes sense now. She sounded like she knew what was going on." Pts updated on plan of care, given [facility] phone number so could call RN if pt calls him again to pick her up. Pts went back home. Continue to monitor. Call light in reach. Bed alarm on. Intentional rounding.
[2016-12-27 06:24] LABS: BASOPHILS % (AUTO) 0.7 % (0-3); EOSINOPHILS % (AUTO) 7.4 % (0-5); MONOCYTES % (AUTO) 9.7 % (4-12); Mean Corpuscular Hemoglobin 32.4 pg (27.0-35.0); Mean Corpuscular Volume 99.7 fL (81-100); NEUTROPHILS % (AUTO) 55.8 % (40-74); Platelet Count 162 bil/L (150-400)
[2016-12-27 06:54] LABS: Magnesium 2.1 mg/dL (1.6-2.6)
[2016-12-27] MEDS: Pantoprazole 40 mg ER24 Tablet PO SCH (08:51)
[2016-12-27] MEDS: Heparin 5,000 Unit/mL Inj SUBQ SCH ×2 (08:52→20:01)
--- NOTE | 2016-12-27 15:17 | NUR ---
Social Work-initial assessment/readiness for discharge: Data:See initial assessment. Pt is a 86 y/o female who was admitted on 12/25/16 for alerted mental status per H&P. Pt's insurance is [employer] and PCP is Juanito Avelar MD. EMR Reviewed. SW placed a call to Raym[facility] to discuss discharge planning, SW role explained. Pt having some confusion. Pt and live in a single level home in [place] in a single level where pt remains independent with basic ADLS. pt uses a cane and does not drive. Pt has no HH or SNF history. Pt has no detention care insurance or VA benefits. SW discussed DPOA/ advanced directive, confirms they have not completed this, information provided. PT worked with pt and is recommending 24/7 assist and HH, pt ambulating 200ft. SW discussed both with who confirms he is around 24/7 and is agreeable to HH, HH choice list provided. has no agency preference. SW referred to the rotating calendar and made referral to [facility] for RN,PT, and OT, access given. F2F for MD to complete. SW will continue to follow. Assessment:Pt who would benefit from services. Plan:Pt to discharge home with to provide 24/7 care. Referral made to [facility] For RN,PT, and OT. F2F for MD to complete. SW will continue to follow. AMINAH Becekr Addendum: 12/27/16 at 1530 by ANAI BOOTH SS Amended: Links added.
--- NOTE | 2016-12-27 15:42 | NUR ---
choice list provided. AMINAH Becker
--- NOTE | 2016-12-27 17:44 | NUR ---
Confusion Pt intermittently confused this shift, easily reoriented for the most part. Pt took a nap this afternoon for ~2 hours and when she awoke, pt was extremely confused and tearful. Reported remembering a few moments from the last two days. As pt appeared to wake more, she became more clear. Pt crying, stating, "What is wrong with me?" and telling this RN and family, "Don't lie to me, I haven't been here!" Family and this RN providing comfort, allowing pt to express her fears and concerns. MD aware of confusion, MRI had been ordered for Thursday am. Family at bedside. Bed in lowest, locked position and call light in reach. Bed alarm on for safety at all times.
[2016-12-27] MEDS ORDERED: Nitroglycerin 2% 1 Gm Ointment TOPICAL ONE (21:55)
[2016-12-27] MEDS ORDERED: Labetalol 5 mg/mL 4 mL Inj IVPUSH ONE (21:55)
--- NOTE | 2016-12-27 23:20 | PCM.PNMED ---
Subjective Date of Service Dec 27, 2016 Subjective Patient slept much of the day and then when she awoke in the afternoon she was confused. She did not remember why she was in the hospital and did not remember any recent events such as calling her at 5:30 this morning to come and pick her up from the hospital as she was "going home". Patient was oriented to person and place, however avoided many other questions. She stated she was not hungry even though she had hardly anything all day. She had no specific complaints. Exam Vital Signs Vital Sign - Last Date Time Temp Pulse Resp B/P Pulse Ox O2 Delivery O2 Flow Rate FiO2 12/27/16 19:25 36.7 74 18 206/75 96 Room Air Intake and Output 12/26/16 12/26/16 12/27/16 Cumulative From/Thru 15:00 23:00 07:00 12/25/16 09:10 - 12/27/16 06:09 Intake Total 603 ml 1467 ml 891 ml 4512 ml Output Total 1200 ml 150 ml 4200 ml Balance 603 ml 267 ml 741 ml 312 ml Intake Oral 825 ml 350 ml 1900 ml IV Total 603 ml 642 ml 541 ml 2612 ml Output Urine Total 1200 ml 150 ml 4200 ml # Voids 3 3 # Bowel Movements 1 1 Exam General: Patient is resting comfortably in bed. She is in no apparent distress. However, she is more confused today than yesterday. HEENT: Head is atraumatic and normocephalic. Eyes: Pupils are equally round and reactive to light and accommodation. Extraocular muscles are intact. Sclera are white, anicteric. Subconjunctival mucosa is pink. Ears and nose are unremarkable. Oropharynx: There is no mucosal lesions, there is no thrush, there is no pharyngitis. Neck: Is supple, there are no nodes, or masses or tenderness. Chest: Is clear to auscultation and percussion. There are no rales, rhonchi, wheezes or rubs. Heart: Rate, rhythm is regular. There is a grade 1/6 systolic ejection murmur heard best at left sternal border. There is no rub or gallop. Abdomen: Good bowel sounds are present. Abdomen is soft, nontender, no organomegaly or masses were appreciated. Extremities: Are symmetrical and well perfused. There is no edema, there is no cellulitis, no rash. Neurologic: There are no focal neurological deficits. Cranial nerves II through XII are intact. There are no sensory or motor deficits. Psychiatric: Patients mood is calm and she shows no sign of agitation. Genital: Deferred Rectal: Deferred Lab and Diagnostics Result Diagram: 12/27/1651712/27/16517 X-Rays, CTs and MRIs PROCEDURE: X-RAY CHEST ONE VIEW, PORTABLE ([id number]) INDICATIONS: altered mental status TECHNIQUE: One view of the chest was acquired. COMPARISON: [facility], CR, XR CHEST 1VW (PORTABLE), 08/02/2016, 14: 13. FINDINGS: Surgical changes and devices: None. Lungs and pleura: No pleural effusions or pneumothorax. Lungs are clear. Aeration of the lungs is similar to the prior study. There is mild elevation of the right diaphragm. . Mediastinum: Mediastinal contours appear normal. Heart size is normal. There is aortic atherosclerosis Bones and chest wall: No suspicious bony lesions. Degenerative changes of the shoulders and spine are present. Overlying soft tissues appear unremarkable. IMPRESSION: Stable chest. No acute cardiopulmonary process is evident. Dictated by: Marco A Kelly M.D. on 12/25/2016 at 9:04 Approved by: Marco A Kelly M.D. on 12/25/2016 at 9:05 PROCEDURE: CT BRAIN WITHOUT CONTRAST ([id number]) INDICATIONS: Stroke TECHNIQUE: Noncontrast 4.5 mm thick angled axial sections acquired from the foramen magnum to the vertex, with coronal reformats. COMPARISON: [facility], CT, CT BRAIN WO CON, 12/20/2016, 17:52. FINDINGS: Image quality: Excellent. CSF spaces: Basal cisterns are patent. No extra-axial fluid collections. The ventricles are symmetric in size and shape. Brain: No intracranial bleeds or masses. There is moderate cerebral volume loss for age, with resultant ventricular and sulcal prominence. There are moderate periventricular and deep white matter chronic small vessel ischemic changes. There is intracranial internal carotid artery atherosclerosis. Skull and face: Calvarium and visualized facial bones appear intact, without suspicious lesions. Sinuses: Visualized sinuses and mastoids are clear. IMPRESSION: 1. No acute intracranial abnormalities. 2. Cerebral volume loss and chronic microvascular ischemic changes. Dictated by: Lana Charles M.D. on 12/25/2016 at 9:34 Approved by: Lana Charles M.D. on 12/25/2016 at 9:36 Cardiac Echo Impressions Echocardiogram Report Name: JACK TEJEDA Study Date: 12/25/2016 Height: 65 in Hospital Exam Location: [facility] Weight: 164 lb Gender: Female BSA: 1.8 m2 : 1930 Age: 86 yrs BP: 211/92 mmHg Reason For Study: CVA Ordering Physician: Performed By: Zeke Ellis Referring Physician: Juanito Avelar Interpretation Summary The left ventricle is normal in size. The ejection fraction is estimated to be 40-45%. Compared to the prior exam, the left ventricular function is reduced. There appears to be severe hypokinesis to akinesis of mid to distal anterior wall, mid to distal septum, apex and the distal inferolateral wall (New). Trabeculae near apex are visualized. No thrombus is observed. The right ventricle is normal in size, thickness and function. There is moderate mitral regurgitation. Compared to the prior echo study, there has been an increase in the severity of mitral regurgitation. There is mild tricuspid regurgitation. Compared to the prior echo exam, there has been an increase in TR severity. The right ventricular systolic pressure is estimated at 38 mmHg assuming a right atrial pressure of 8 mm Hg. Assessment & Plan The patient is an 86-year-old pleasant white female history of DVTs, hypertension and diabetes mellitus who was on Plavix after carotid endarterectomy and has taken off over the last year or so. The patient's daughter America states the patient often has to balance and often falls in her backyard while gardening with her . Proximally a week ago patient fell backwards on her patio and hit her head. Came to [facility] emergency room and had x-rays and all x-rays were negative except for one which showed a fracture of her left fifth toe. Patient was in her usual state of health and had normal mentation when going to bed at 10 PM last night. However , this morning she awoke at 5 AM and the difficulty moving her legs to get to the bathroom. Patient then came back to bed and her right leg "would not do anything". Patient yelled for her to get up and help her. remembers helping getting her back into bed.. The patient's noticed that what she was saying did not make any sense. And she continued talking but was "talking funny". The patient's called her daughter America at 6: 45 AM and America drove over to evaluate the situation. She found her mother is continued to say things that "did not make sense". Patient was also seen picking at things and daughter America decided at that point to drive her to [facility] emergency room. In the emergency room the patient was evaluated by Dr. Otoniel Contreras. Patient was found to have a normal CBC, a normal protime, normal electrolytes, with a slightly elevated blood urea nitrogen, still within normal range. Patient was also found to have a normal creatinine and normal troponin level less than 0.010 mcg/L. Patient had a normal urinalysis. Patient EKG showed sinus rate of 67 left ventricular hypertrophy unchanged from prior. Q waves in V1 through V3 also unchanged from prior EKG chest x-ray showed no acute cardiopulmonary disease and CT of the head showed no acute intracranial abnormalities with cerebral volume loss and chronic microvascular ischemic changes. The patient continued to have altered mental status and the patient was brought into the hospital, under the care of the hospitalist service, under observation for further evaluation and treatment. # Encephalopathy and slurred speech, present at the time of admission. Active - Possible acute cerebrovascular accident despite negative CT scan. Initial MRI stroke protocol failed to reveal source of patient's symptoms.. - Possible reversible ischemic neurological deficit - Patient was recently taken off Plavix in the last year or so, as she was placed on Plavix after a left carotid endarterectomy. - Consider restarting Plavix depending on MRI findings and carotid Dopplers. - Discussed with neurologist Dr. Virgil Lechuga and he is unable to see the patient as he is not conductor symphonic orchestra. However, he recommends repeating the MRI in 48 hours to 72 hours to see if the patient has indeed had a stroke. In some cases the initial MRI will be negative and follow-up will show the defect. - Check MRI stroke protocol in a.m. # Significant peripheral vascular occlusive disease, present at the time of admission. Active - Patient has had a left carotid endarterectomy - Patient had a angioplasty of what sounds like the right iliac artery which was complicated by tear in the artery a large retroperitoneal hematoma with temporary hemorrhagic shock. Patient received 7 pints of blood and suffered complications of deep venous thrombosis. - We will repeat carotid Dopplers - MRI stroke protocol will be repeated as recommended by neurology in 2-3 days.. # History of esophageal spasms and this is complicating her ability to swallow according to speech therapy, present on admission this patient was seen in the ER by speech therapy. Active - Continue Imdur as nitroglycerin appears to alleviate the patient's esophageal spasms. - We may want to add when necessary nitroglycerin sublingual - We will consider GI evaluation. - We will consider modified barium swallow. - Appreciate speech therapy consult and will ask him to continue to follow. # Diabetes mellitus, present on admission. Active - Check serum glucose before meals and at bedtime. - Heart healthy consistent carbohydrate diet - Sliding-scale insulin coverage. # Uncontrolled Hypertension, present on admission. Active systolic blood pressures over 200 - We allowed permissive hypertension for 24 hours after patient's cerebrovascular event. - We will give labetalol for a systolic blood pressure greater than 220 or diastolic blood pressure greater than 110 - We will then begin to control blood pressure more aggressively today with patient's home regimen of hydralazine and metoprolol. Patient states that after her left carotid endarterectomy her blood pressure was extremely hard to control in the systolic blood pressure was often over 200. # Patient appears to have had a previous myocardial infarction and appears to have chronic systolic congestive heart failure with an ejection fraction of 40- 45% on echocardiogram, present on admission. Active - Patient appears to have evidence of ischemic cardiomyopathy. We have ordered serial troponins. These were slightly positive and have trended downward and normalized. - Check BNP - Check chest x-ray - We will obtain cardiology consultation. I have discussed the case with Dr. Villalobos today. She is a very strong family history of ischemic cardiac disease as both her parents and all 10 of her siblings from myocardial infarctions. - And aggressive blood pressure control with hydralazine and metoprolol. Continue aspirin. We will add atorvastatin. And will check lipid panel. Disposition: As patient appears to have suffered a significant cerebrovascular event either a cerebrovascular accident or reversible ischemic neurological deficit which is not completely reversed as of yet, the patient will be here another 24-48 hours for evaluation and treatment of the above problem. I have discussed the case with patient's and daughter America at bedside and they agree with the above plan. Pain Evaluation: Adequate Pain Control VTE Prophylaxis: Sub-Q Heparin (Unfractionated) VTE Mechanical Devices: Intermittant Pneumatic CD Resuscitation Status: CPR: Attempt Resuscitation Bj Whalen MD Dec 27, 2016 23:20
[2016-12-28] VITALS (10 sets, daily range): BP systolic 138–192; BP diastolic 69–78; PULSE 62–91; RESP 18–20; O2SAT 93–97
--- NOTE | 2016-12-28 01:45 | NUR ---
Hypertension BP206/75 HR 74 at evening, pt c/o some headache /, scheduled pm Metoprolol given,Tylenol given for headache, recheck in about 1 hour BP down to 195/65, headache improved. Dr. Sr and CHANNING VILLANUEVA (friend of pt's son) at bedside at late pm informed, Labetalol 10mg IVx1 and Nitro Oint.x1 ordered and administered, scheduled Hydralazoine also administered at same time (Ok to give 3 BP meds above together per Dr. Rios). Recheck in 1 hr BP down to 135/63. Continue monitoring.
[2016-12-28 06:54] LABS: Magnesium 1.7 mg/dL (1.6-2.6)
[2016-12-28] MEDS: Pantoprazole 40 mg ER24 Tablet PO SCH (08:46)
[2016-12-28] MEDS: Heparin 5,000 Unit/mL Inj SUBQ SCH ×2 (08:47→20:49)
[2016-12-28] MEDS ORDERED: Magnesium Sulf 4 Gm/100 mL H2O 4 GM in IV Premix 1 EACH IV ONE (09:00)
--- NOTE | 2016-12-28 09:00 | NUR ---
MARISOL signed. AMINAH Becker
--- NOTE | 2016-12-28 11:30 | NUR ---
MRI Pt off the unit for MRI, 5 mg PO Diazepam administered approx 45 minutes prior to test. Pt drowsy and relaxed, able to responds and requests appropriately. Tolerated imaging well, Returned to room, up in chair eating lunch, Call light in place, will continue to monitor,
[2016-12-28] MEDS ORDERED: Lactulose 10 Gm/15 mL 473 mL Solution PO SCH (11:45)
--- NOTE | 2016-12-28 12:19 | DRSVH ---
PROCEDURE: MRI STROKE PROTOCOL ([id number]) Pre- and post-contrast brain MRI, non-contrast brain MR angiogram, pre- and postcontrast neck MR susi ogram INDICATIONS: confusion/possible CVA TECHNIQUE: Brain: Noncontrast axial T1 spin echo, axial T2 fast spin echo, sagittal and axial FLAIR, coronal T2 fast spin echo, axial gradient echo, axial diffusion and ADC through the brain. After the administr ation of contrast, axial 3D VIBE of the cranial vasculature and brain. Brain MRA: Non-contrast 3-D time of flight MR angiogram, with multiple mlmvmkb-qtnxxafbb-zsouzoolye (MIP) reformats performed. Neck MRA: Axial and sagittal TruFISP through the neck. Coronal dynamic MR angiogram during administ ration of contrast in the arterial and venous phases, with 3-dimenstional ahulnyb-jrdtxtnag-wwxjkinkh n (MIP) reformats constructed from subtraction images. COMPARISON: [facility], MR, MR STROKE PROTOCOL, 12/25/2016, 21:36. [facility], CT, CT BRAIN WO CON, 12/25/2016, 9:28. FINDINGS: Image quality: There is mild motion artifact. BRAIN: CSF spaces: There is mild cerebral volume loss with prominence of the ventricles and sulci. Basal c isterns are patent. No extra-axial fluid collections. Brain: Diffusion weighted images demonstrate no acute infarcts. No acute intracranial hemorrhage, m ass, or mass effect. There are a few scattered small foci of GRE susceptibility redemonstrated bilat erally predominantly in a subcortical distribution. There are bilateral subcortical and periventricu lar foci of white matter T2 hyperintensity consistent with moderate chronic small vessel ischemic flory nges. Brainstem appears normal. Normal intravascular flow voids are present. No abnormal intracran ial enhancement. Skull and face: Calvarial marrow signal is normal. Orbits appear normal. Sinuses: Sinuses and mastoids are clear. BRAIN MR ANGIOGRAM: Anterior circulation: Intracranial internal carotid arteries are normal in size and appear patent. The flow within the paired anterior cerebral arteries is patent bilaterally. The flow within the mid dle cerebral arteries is patent bilaterally. The anterior communicating artery is patent. No high-g rade stenoses, occlusions, or aneurysms. Posterior circulation: The visualized portions of the vertebral arteries appear patent and join to f orm a normal appearing basilar artery. The flow within the posterior cerebral arteries is patent radha aterally. There is persistent circulation on the right, with the right posterior cerebral mini ry supplied by a posterior communicating artery. No high-grade stenoses, occlusions, or aneurysms. NECK MR ANGIOGRAM: Carotids: Great vessels demonstrate a conventional anatomy as they arise from the aortic arch. The origins of the common carotid arteries appear patent. The calibers and courses of both common caroti d arteries are normal. There is mild narrowing of to 50% in the right carotid bulb. The left caroti d bulb is widely patent. The subsequent internal carotid arteries demonstrate patent flow bilaterall y. There is high-grade narrowing at the origin of the right external carotid artery. Posterior circulation: There is high-grade narrowing at the origin of the right vertebral artery. Th ere is mild narrowing at the origin of the left vertebral artery. More superior portions of both karely tebral arteries appear patent, with mild segmental narrowing in the distal right vertebral artery. T he vertebral arteries join to form a patent basilar artery. Miscellaneous: Subclavian arteries appear patent. Pre-contrast images through the neck show no soft tissue abnormalities. IMPRESSION: BRAIN MRI: 1. No evidence of infarct or other acute intracranial abnormality. 2. Moderate chronic white matter small vessel ischemic changes and mild cerebral volume loss. 3. 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 BRAIN MR ANGIOGRAM: 1. No high-grade stenosis or occlusion of the central intracranial arteries. NECK MR ANGIOGRAM: 1. High-grade stenosis at the origin of the right vertebral artery redemonstrated. There is mild na rrowing at the origin of the left vertebral artery. 2. Mild narrowing in the right carotid bulb up to 50%. Left carotid bulb is widely patent. 3. High-grade stenosis at the origin of the right external carotid artery. The estimate of stenosis included in the report of the imaging study was calculated using the NASCET method Dictated by: Destin Catalan M.D. on 12/28/2016 at 12:17 Approved by: Destin Catalan M.D. on 12/28/2016 at 12:17
[2016-12-28] MEDS: Lactulose 20 Gm/30 mL 30 mL Syrup PO SCH (12:23)
--- NOTE | 2016-12-28 14:32 | NUR ---
IV access IV flushes sluggish, dressing changed and cath adjusted. This RN unable to administer IV Mg. IV removed intact, no signs of bleeding or bruising. Re-start of IV attempted x 2, unsuccessful. IV therapy paged and patent IV assess in place. Call light in reach, will continue to monitor.
--- NOTE | 2016-12-28 14:46 | CONS ---
[address] [address] CONSULTATION REPORT PATIENT: JACK TEJEDA : 1930 MR#: [id number] ADMIT: 12/25/2016 JOB ID: [id number] DATE OF SERVICE: 12/28/2016 The patient is a pleasant, 86-year-old patient admitted on with acute confusional episode and garbled speech. An echocardiogram was performed as part of her evaluation and demonstrated evidence of left ventricular systolic dysfunction and I have been asked to see the patient in consultation for assistance with her evaluation. The patient does not have a history of previous symptomatic ischemic heart disease. She underwent coronary angiography in [place] in 2008 demonstrating absence of significant obstructive coronary disease and previously had normal left ventricular systolic function on an echocardiogram as recent as April 2015. She has a long history of peripheral arterial disease with prior left carotid endarterectomy in April 2015 at which point she had a left carotid body tumor removed as well. She has extensive lower extremity peripheral arterial disease with complicated angioplasty of the right popliteal artery. This is complicated by right external iliac artery rupture and retroperitoneal hematoma with shock. The patient underwent emergency surgery and subsequently was left with persistent weakness, fatigue, and unsteadiness. She has known superficial femoral artery disease with an 80% to 90% focal stenosis in the left superficial femoral artery and diffuse disease involving the right superficial femoral artery and her angioplasty was performed to an occluded right popliteal artery. This patient has been treated for hypertension, diabetes and dyslipidemia as well. Her prior antihypertensive therapy has included high dose metoprolol at 100 mg b.i.d. and according to the patient and recent records she has also been taking verapamil 360 mg a day. Blood pressure management has been complicated by intolerance to a number of medications including the Norvasc, nifedipine, diltiazem and lisinopril. She has also previously been intolerant to pravastatin and Lipitor and has an X-RAY CONTRAST allergy noted as well. The patient's admitting hospital complaint was an acute confusional state with garbled speech. She actually had significant weakness as a result, as well and fell to the floor or slid to the floor when she tried to get out of bed. Her neurologic evaluation has been unrevealing with no evidence of obvious cerebral infarction based on her CT scan or MRI. Over the last several days her neurologic symptoms have improved and I find her today sitting in the room surrounded by family, conversant and oriented without any speech deficits or focal neurologic findings. The patient states that she has never been bothered by limiting exertional dyspnea or angina-like chest discomfort. She has no history of stroke or obvious TIA symptoms and no prior history of syncope, near syncope, or acute confusional state. She has been limited by lower extremity weakness and fatigue and claudication and is not able to walk more than room to room in her house without having to stop and rest. She did fall hitting the back of her head a week before admission while working out in her yard due to loss of balance. According to the charts, medicine reconciliation, the patient was takin. Hydralazine 25 mg q.i.d. 2. In addition to metoprolol tartrate 100 mg b.i.d. 3. Aspirin 81 mg daily. 4. Citalopram 10 mg daily. 5. Gabapentin 600 mg t.i.d. 6. Hydrocodone/acetaminophen as needed. 7. Nortriptyline 10 mg at h.s. 8. She also takes ondansetron 4 mg t.i.d. as needed for nausea. 9. Pantoprazole 40 mg daily for dyspepsia, as well as multivitamins. It is also reported that she took: 1. Verapamil 360 mg daily. 2. Amlodipine 10 mg daily. 3. Clopidogrel 75 mg a day. All of which were discontinued on admission. PHYSICAL EXAMINATION: Shows a comfortable, pleasant, 86-year-old woman who 5 feet 5 inches tall and weighs 161 pounds with a body mass index of 27. HEENT examination unremarkable. Left carotid endarterectomy scar is notable and she has a prominent left carotid bruit and surprisingly does not have a right carotid bruit. despite a known 50% to 69% right internal carotid artery stenosis. Lung gaitan are clear following deep inspiration. Cardiac auscultation is notable for regular rate and rhythm. I do not hear an obvious cardiac murmur and no ventricular gallops. First and second heart sounds sound normal. Abdomen is unremarkable. Distal extremities show mild pitting edema with some dusky discoloration. No obvious musculoskeletal and no obvious neurologic findings seen. LABORATORY DATA: Includes a normal renal function and electrolytes. Troponin levels bumped very slightly from less than 0.01 to 0.23 back to 0.01. CBC is unremarkable other than a mild eosinophilia. Chest CT demonstrates mild elevation of the right hemidiaphragm and normal heart size with aortic atherosclerosis and her echocardiogram demonstrates mid and distal septal anterior wall apical and distal inferior apical wall motion abnormality. Initial EKG showed some minor nonspecific ST-segment changes but her EKG today is notable for deep symmetric T-wave inversion across the anterior precordial leads and in the lateral limb leads, quite consistent with a stress cardiomyopathy. Baseline EKG also shows Q-waves in lead V1 through V3. IMPRESSION: 1. 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 This is also likely the cause of her slight elevation in troponin. This is temporally related to her transient neurologic dysfunction and I would expect to see fairly rapid improvement in ventricular systolic function over the next few weeks. 2. Hypertension: Blood pressure has improved but was quite high on admission. Blood pressure management has been complicated by multiple medication intolerances. I do not care for the combination of fairly high-dose beta samantha therapy in addition to fairly high-dose verapamil therapy particularly in an elderly woman and would recommend that her verapamil be discontinued. I think her blood pressure probably could be well controlled on a combination of metoprolol 100 mg b.i.d., hydralazine 50 mg t.i.d. (not q.i.d.), isordil 20 mg t.i.d. with the addition of a diuretic if needed. If this is well tolerated but not successful in adequately controlling her blood pressure then I would recommend increasing the metoprolol to 150 mg b.i.d. if tolerated. 3. Peripheral arterial disease: Given this patient's cerebrovascular and peripheral arterial disease statin therapy is essential even at her age to reduce cardiovascular events. I have explained to her that there are six additional statin drugs that can be tried with a reasonable chance of finding one that is effective for her without causing side effects. She previously was intolerant to atorvastatin and pravastatin, and therefore, I would recommend institution of rosuvastatin 10 mg daily. For followup, I would recommend that she have a repeat echocardiogram in about three weeks. Follow up in our office with Meng, our physician clinical lab assistant, in about four weeks. Her blood pressure can be evaluated at that point, and her blood pressure medications can be adjusted. The echocardiogram should demonstrate significant improvement in apical ventricular dysfunction and if not further investigation might be indicated, and finally tolerance to her newly initiated statin drug can be reassessed. I hope these thoughts and recommendations are helpful with this patient's care. Please let me know if further assistance is required.
--- NOTE | 2016-12-28 20:21 | PCM.PNMED ---
Subjective Date of Service Dec 28, 2016 Subjective The patient is more alert and appropriate. She was seen before her MRI exam. She has no new complaints. Exam Vital Signs Vital Sign - Last Date Time Temp Pulse Resp B/P Pulse Ox O2 Delivery O2 Flow Rate FiO2 12/28/16 19:57 37.0 71 20 170/71 95 Room Air Intake and Output 12/27/16 12/27/16 12/28/16 Cumulative From/Thru 15:00 23:00 07:00 12/25/16 09:10 - 12/28/16 05:16 Intake Total 1513 ml 700 ml 6725 ml Output Total 350 ml 1075 ml 750 ml 6375 ml Balance -350 ml 438 ml -50 ml 350 ml Intake Oral 936 ml 700 ml 3536 ml IV Total 577 ml 3189 ml Output Urine Total 350 ml 1075 ml 750 ml 6375 ml # Voids 1 4 # Bowel Movements 1 1 3 Exam General: Patient is resting comfortably in bed. She is in no apparent distress. She is more alert and less confused than yesterday. HEENT: Head is atraumatic and normocephalic. Eyes: Pupils are equally round and reactive to light and accommodation. Extraocular muscles are intact. Sclera are white, anicteric. Subconjunctival mucosa is pink. Ears and nose are unremarkable. Oropharynx: There is no mucosal lesions, there is no thrush, there is no pharyngitis. Neck: Is supple, there are no nodes, or masses or tenderness. Chest: Is clear to auscultation and percussion. There are no rales, rhonchi, wheezes or rubs. Heart: Rate, rhythm is regular. There is a grade 1/6 systolic ejection murmur heard best at left sternal border. There is no rub or gallop. Abdomen: Good bowel sounds are present. Abdomen is obese, soft, nontender, no organomegaly or masses were appreciated. Extremities: Are symmetrical and well perfused. There is no edema, there is no cellulitis, no rash. Neurologic: There are no focal neurological deficits. Cranial nerves II through XII are intact. There are no sensory or motor deficits. Patient is more alert and oriented today. Psychiatric: Patients mood is calm and she shows no sign of agitation. Genital: Deferred Rectal: Deferred Lab and Diagnostics Result Diagram: 12/27/16 0518 12/28/16 0600 X-Rays, CTs and MRIs PROCEDURE: X-RAY CHEST ONE VIEW, PORTABLE ([id number]) INDICATIONS: altered mental status TECHNIQUE: One view of the chest was acquired. COMPARISON: [facility], CR, XR CHEST 1VW (PORTABLE), 08/02/2016, 14: 13. FINDINGS: Surgical changes and devices: None. Lungs and pleura: No pleural effusions or pneumothorax. Lungs are clear. Aeration of the lungs is similar to the prior study. There is mild elevation of the right diaphragm. . Mediastinum: Mediastinal contours appear normal. Heart size is normal. There is aortic atherosclerosis Bones and chest wall: No suspicious bony lesions. Degenerative changes of the shoulders and spine are present. Overlying soft tissues appear unremarkable. IMPRESSION: Stable chest. No acute cardiopulmonary process is evident. Dictated by: Marco A Kelly M.D. on 12/25/2016 at 9:04 Approved by: Marco A Kelly M.D. on 12/25/2016 at 9:05 PROCEDURE: CT BRAIN WITHOUT CONTRAST ([id number]) INDICATIONS: Stroke TECHNIQUE: Noncontrast 4.5 mm thick angled axial sections acquired from the foramen magnum to the vertex, with coronal reformats. COMPARISON: [facility], CT, CT BRAIN WO CON, 12/20/2016, 17:52. FINDINGS: Image quality: Excellent. CSF spaces: Basal cisterns are patent. No extra-axial fluid collections. The ventricles are symmetric in size and shape. Brain: No intracranial bleeds or masses. There is moderate cerebral volume loss for age, with resultant ventricular and sulcal prominence. There are moderate periventricular and deep white matter chronic small vessel ischemic changes. There is intracranial internal carotid artery atherosclerosis. Skull and face: Calvarium and visualized facial bones appear intact, without suspicious lesions. Sinuses: Visualized sinuses and mastoids are clear. IMPRESSION: 1. No acute intracranial abnormalities. 2. Cerebral volume loss and chronic microvascular ischemic changes. Dictated by: Lana Charles M.D. on 12/25/2016 at 9:34 Approved by: Lana Charles M.D. on 12/25/2016 at 9:36 PROCEDURE: MRI STROKE PROTOCOL ([id number]) Pre- and post-contrast brain MRI, non-contrast brain MR angiogram, pre- and postcontrast neck MR angiogram INDICATIONS: confusion/possible CVA TECHNIQUE: Brain: Noncontrast axial T1 spin echo, axial T2 fast spin echo, sagittal and axial FLAIR, coronal T2 fast spin echo, axial gradient echo, axial diffusion and ADC through the brain. After the administration of contrast, axial 3D VIBE of the cranial vasculature and brain. Brain MRA: Non-contrast 3-D time of flight MR angiogram, with multiple maximum- intensity-projection (MIP) reformats performed. Neck MRA: Axial and sagittal TruFISP through the neck. Coronal dynamic MR angiogram during administration of contrast in the arterial and venous phases, with 3-dimenstional ohcowdw-kjuqwblaj-vbuhqzvlyg (MIP) reformats constructed from subtraction images. COMPARISON: [facility], MR, MR STROKE PROTOCOL, 12/25/2016, 21:36. [facility], CT, CT BRAIN WO CON, 12/25/2016, 9:28. FINDINGS: Image quality: There is mild motion artifact. BRAIN: CSF spaces: There is mild cerebral volume loss with prominence of the ventricles and sulci. Basal cisterns are patent. No extra-axial fluid collections. Brain: Diffusion weighted images demonstrate no acute infarcts. No acute intracranial hemorrhage, mass, or mass effect. There are a few scattered small foci of GRE susceptibility redemonstrated bilaterally predominantly in a subcortical distribution. There are bilateral subcortical and periventricular foci of white matter T2 hyperintensity consistent with moderate chronic small vessel ischemic changes. Brainstem appears normal. Normal intravascular flow voids are present. No abnormal intracranial enhancement. Skull and face: Calvarial marrow signal is normal. Orbits appear normal. Sinuses: Sinuses and mastoids are clear. BRAIN MR ANGIOGRAM: Anterior circulation: Intracranial internal carotid arteries are normal in size and appear patent. The flow within the paired anterior cerebral arteries is patent bilaterally. The flow within the middle cerebral arteries is patent bilaterally. The anterior communicating artery is patent. No high-grade stenoses, occlusions, or aneurysms. Posterior circulation: The visualized portions of the vertebral arteries appear patent and join to form a normal appearing basilar artery. The flow within the posterior cerebral arteries is patent bilaterally. There is persistent circulation on the right, with the right posterior cerebral artery supplied by a posterior communicating artery. No high-grade stenoses, occlusions, or aneurysms. NECK MR ANGIOGRAM: Carotids: Great vessels demonstrate a conventional anatomy as they arise from the aortic arch. The origins of the common carotid arteries appear patent. The calibers and courses of both common carotid arteries are normal. There is mild narrowing of to 50% in the right carotid bulb. The left carotid bulb is widely patent. The subsequent internal carotid arteries demonstrate patent flow bilaterally. There is high-grade narrowing at the origin of the right external carotid artery. Posterior circulation: There is high-grade narrowing at the origin of the right vertebral artery. There is mild narrowing at the origin of the left vertebral artery. More superior portions of both vertebral arteries appear patent, with mild segmental narrowing in the distal right vertebral artery. The vertebral arteries join to form a patent basilar artery. Miscellaneous: Subclavian arteries appear patent. Pre-contrast images through the neck show no soft tissue abnormalities. IMPRESSION: BRAIN MRI: 1. No evidence of infarct or other acute intracranial abnormality. 2. Moderate chronic white matter small vessel ischemic changes and mild cerebral volume loss. 3. 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 BRAIN MR ANGIOGRAM: 1. No high-grade stenosis or occlusion of the central intracranial arteries. NECK MR ANGIOGRAM: 1. High-grade stenosis at the origin of the right vertebral artery redemonstrated. There is mild narrowing at the origin of the left vertebral artery. 2. Mild narrowing in the right carotid bulb up to 50%. Left carotid bulb is widely patent. 3. High-grade stenosis at the origin of the right external carotid artery. The estimate of stenosis included in the report of the imaging study was calculated using the NASCET method Dictated by: Destin Catalan M.D. on 12/28/2016 at 12:17 Approved by: Destin Catalan M.D. on 12/28/2016 at 12:17 Cardiac Echo Impressions Echocardiogram Report Name: JACK TEJEDA Study Date: 12/25/2016 Height: 65 in Hospital Exam Location: [facility] Weight: 164 lb Gender: Female BSA: 1.8 m2 : 1930 Age: 86 yrs BP: 211/92 mmHg Reason For Study: CVA Ordering Physician: Performed By: Zeke Ellis Referring Physician: Juanito Avelar Interpretation Summary The left ventricle is normal in size. The ejection fraction is estimated to be 40-45%. Compared to the prior exam, the left ventricular function is reduced. There appears to be severe hypokinesis to akinesis of mid to distal anterior wall, mid to distal septum, apex and the distal inferolateral wall (New). Trabeculae near apex are visualized. No thrombus is observed. The right ventricle is normal in size, thickness and function. There is moderate mitral regurgitation. Compared to the prior echo study, there has been an increase in the severity of mitral regurgitation. There is mild tricuspid regurgitation. Compared to the prior echo exam, there has been an increase in TR severity. The right ventricular systolic pressure is estimated at 38 mmHg assuming a right atrial pressure of 8 mm Hg. Assessment & Plan The patient is an 86-year-old pleasant white female history of DVTs, hypertension and diabetes mellitus who was on Plavix after carotid endarterectomy and has taken off over the last year or so. The patient's daughter America states the patient often has to balance and often falls in her backyard while gardening with her . Proximally a week ago patient fell backwards on her patio and hit her head. Came to [facility] emergency room and had x-rays and all x-rays were negative except for one which showed a fracture of her left fifth toe. Patient was in her usual state of health and had normal mentation when going to bed at 10 PM last night. However , this morning she awoke at 5 AM and the difficulty moving her legs to get to the bathroom. Patient then came back to bed and her right leg "would not do anything". Patient yelled for her to get up and help her. remembers helping getting her back into bed.. The patient's noticed that what she was saying did not make any sense. And she continued talking but was "talking funny". The patient's called her daughter America at 6: 45 AM and America drove over to evaluate the situation. She found her mother is continued to say things that "did not make sense". Patient was also seen picking at things and daughter America decided at that point to drive her to schedule [facility] emergency room. In the emergency room the patient was evaluated by Dr. Otoniel Contreras. Patient was found to have a normal CBC, a normal protime, normal electrolytes, with a slightly elevated blood urea nitrogen, still within normal range. Patient was also found to have a normal creatinine and normal troponin level less than 0.010 mcg/L. Patient had a normal urinalysis. Patient EKG showed sinus rate of 67 left ventricular hypertrophy unchanged from prior. Q waves in V1 through V3 also unchanged from prior EKG chest x-ray showed no acute cardiopulmonary disease and CT of the head showed no acute intracranial abnormalities with cerebral volume loss and chronic microvascular ischemic changes. The patient continued to have altered mental status and the patient was brought into the hospital, under the care of the hospitalist service, under observation for further evaluation and treatment. # Encephalopathy and slurred speech, present at the time of admission. Active - Possible acute cerebrovascular accident despite negative CT scan. Initial MRI stroke protocol failed to reveal source of patient's symptoms.. - Possible reversible ischemic neurological deficit - Patient was recently taken off Plavix in the last year or so, as she was placed on Plavix after a left carotid endarterectomy. - Consider restarting Plavix depending on MRI findings and carotid Dopplers. - Discussed with neurologist Dr. Virgil Lechuga and he is unable to see the patient as he is not philosophy and religion instructor. However, he recommends repeating the MRI in 48 hours to 72 hours to see if the patient has indeed had a stroke. In some cases the initial MRI will be negative and follow-up will show the defect. - Repeat MRI stroke protocol was performed this a.m. Showed the following: " No evidence of infarct or other acute intracranial abnormality. Moderate chronic white matter small vessel ischemic changes and mild cerebral volume loss. 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 Will order serum protein electrophoresis and urine protein electrophoresis. Recommend neurology consult and follow-up as an outpatient if not available in a.m. - Patient has a slightly elevated serum ammonia level, the significance of which is uncertain. However will prescribe lactulose at a low dose daily and see if this helps improve the patient's mental status. # Significant peripheral vascular occlusive disease, present at the time of admission. Active - Patient has had a left carotid endarterectomy - Patient had a angioplasty of what sounds like the right iliac artery which was complicated by tear in the artery a large retroperitoneal hematoma with temporary hemorrhagic shock. Patient received 7 pints of blood and suffered complications of deep venous thrombosis. - We will repeat carotid Dopplers - MRI stroke protocol showed the following the MRA: " No high-grade stenosis or occlusion of the central intracranial arteries. High-grade stenosis at the origin of the right vertebral artery redemonstrated. There is mild narrowing at the origin of the left vertebral artery. Mild narrowing in the right carotid bulb up to 50%. Left carotid bulb is widely patent. High-grade stenosis at the origin of the right external carotid artery." - Patient is currently not on a statin and Dr. Villalobos is recommended Crestor for patient. # History of esophageal spasms and this is complicating her ability to swallow according to speech therapy, present on admission this patient was seen in the ER by speech therapy. Active - Continue Imdur as nitroglycerin appears to alleviate the patient's esophageal spasms. - We may want to add when necessary nitroglycerin sublingual - We will consider GI evaluation. - We will consider modified barium swallow. - Appreciate speech therapy consult and will ask him to continue to follow. # Diabetes mellitus, present on admission. Active - Check serum glucose before meals and at bedtime. - Heart healthy consistent carbohydrate diet - Sliding-scale insulin coverage. # Uncontrolled Hypertension, present on admission. Active systolic blood pressures over 200 - We allowed permissive hypertension for 24 hours after patient's cerebrovascular event. - We will give labetalol for a systolic blood pressure greater than 220 or diastolic blood pressure greater than 110 - We will then begin to control blood pressure more aggressively today with patient's home regimen of hydralazine and metoprolol. Patient states that after her left carotid endarterectomy her blood pressure was extremely hard to control in the systolic blood pressure was often over 200. - Dr. Villalobos was kind enough to see the patient in consultation today and recommend the following: " I think her blood pressure probably could be well controlled on a combination of metoprolol 100 mg b.i.d., hydralazine 50 mg t.i.d. (not q.i.d.), isordil 20 mg t.i.d. with the addition of a diuretic if needed. If this is well tolerated but not successful in adequately controlling her blood pressure then I would recommend increasing the metoprolol to 150 mg b.i.d. if tolerated. # Patient appears to have had a previous myocardial infarction and appears to have chronic systolic congestive heart failure with an ejection fraction of 40- 45% on echocardiogram, present on admission. Active - Patient appears to have evidence of ischemic cardiomyopathy. We have ordered serial troponins. These were slightly positive and have trended downward and normalized. - Check BNP - Check chest x-ray - We will obtain cardiology consultation. I have discussed the case with Dr. Villalobos today. She is a very strong family history of ischemic cardiac disease as both her parents and all 10 of her siblings from myocardial infarctions. - Dr. Villalobos believes that the patient has a stress cardiomyopathy and will control her blood pressure as he recommends above and add Crestor to her medication right regimen and patient is to follow-up in his office in couple of weeks to reevaluate patient. Appreciate Dr. Villalobos's time and extra expertise. Disposition: As patient appears to have suffered a significant reversible ischemic neurological deficit which is not completely reversed as of yet. Also , the customer relations consultant Dr. Villalobos has recommended some significant blood pressure medication changes which has a certain risk of adverse event and patient the patient will be here another 24-48 hours for evaluation and treatment of the above problems. I have discussed the case with patient's and daughter America at bedside and they agree with the above plan. I have discussed the case at length with Dr. Villalobos. Pain Evaluation: Adequate Pain Control VTE Prophylaxis: Sub-Q Heparin (Unfractionated) VTE Mechanical Devices: Intermittant Pneumatic CD Resuscitation Status: CPR: Attempt Resuscitation Bj Whalen MD Dec 28, 2016 20:21
[2016-12-29 01:12] VITALS: BP 149/67
[2016-12-29 04:19] VITALS: BP 166/72; PULSE 66; RESP 18; O2SAT 93
--- NOTE | 2016-12-29 05:06 | NUR ---
Hypertension Hypertension appears better than previous night, BP170/71 at the beginning of the shift, scheduled Metoprolol 100mg and Hydrazine 50mg administered at HS. BP appears increase with activities, BP 180/72 after went to BR. After pt resting in bed in about 1.5hr, BP down to 149/67 without medication intervention. Recent BP 166/72. Pt asymptomatic,denies headache. Continue monitoring.
[2016-12-29 06:33] LABS: BASOPHILS % (AUTO) 0.8 % (0-3); MONOCYTES % (AUTO) 10.6 % (4-12); Mean Corpuscular Hemoglobin 32.1 pg (27.0-35.0); NEUTROPHILS % (AUTO) 58.9 % (40-74); Platelet Count 166 bil/L (150-400)
[2016-12-29 06:45] LABS: Magnesium 2.1 mg/dL (1.6-2.6)
[2016-12-29 08:11] LABS: Hepatitis A Antibody IgM Negative (Negative); Hepatitis B Core Antibody IgM Negative (Negative)
[2016-12-29] MEDS: Lactulose 20 Gm/30 mL 30 mL Syrup PO SCH (08:39)
[2016-12-29] MEDS: Pantoprazole 40 mg ER24 Tablet PO SCH (08:41)
[2016-12-29] MEDS: Heparin 5,000 Unit/mL Inj SUBQ SCH (08:43)
[2016-12-29 09:07] VITALS: BP 135/61; PULSE 61; RESP 18; O2SAT 93
[2016-12-29 10:26] VITALS: PULSE 60
--- NOTE | 2016-12-29 10:37 | NUR ---
Social Work-readiness for discharge: data:EMR reviewed. Pt is on day 4 of hospitalization for altered mental status per H&P. Pt is likely medically stable later today or tomorrow. PT has cleared pt for home with 22/12 supervision and HH services. Referral made to [facility] for RN,PT, and OT. F2F to be completed by . SW will continue to follow. Assessment:Pt who would benefit from HH. Plan:Pt to discharge home with via POV. Referral made to [facility] for RN,PT, and OT. F2F to be completed by . BE will continue to follow. AMINAH Becker
[2016-12-29 13:44] VITALS: BP 115/65; PULSE 60; RESP 18; O2SAT 96
--- NOTE | 2016-12-29 14:56 | PCM.DIMED ---
Discharge Instructions Date of Service Dec 29, 2016 Dates of Hospitalization Dec 25, 2016 at 11:30 Discharge Diagnosis Discharge Diagnosis TIA with Confusion and Stress Cardiomyopathy Diet Discharge Diet: Heart Healthy Activity Discharge Activity: No restrictions (Patient to resume usual activities gradually as tolerated.) Call your provider Call your provider for: Fever or Chills, Shortness of breath, Bleeding, Chest pain, Vomitting, Excessive diarrhea, Weakness (unilateral), Other Patient Instructions Follow-up Provider: Juanito Avelar MD Follow-up with PCP in: 1 week Provider: Hussein Villalobos MD Follow-up in: 2 weeks Mid-level Provider (F9): Virgil Lechuga MD Follow-up with Mid-level in: 2 weeks (For Neurology Evaluation.) Bj Whalen MD Dec 29, 2016 14:55
[2016-12-29] MEDS ORDERED: CREST10T PO (15:02)
[2016-12-29] MEDS ORDERED: HYDR-3939 PO (15:02)
[2016-12-29] MEDS ORDERED: LACT10SO60 PO (15:02)
[2016-12-29] MEDS ORDERED: ISOS20TA7 PO (15:02)
--- NOTE | 2016-12-29 15:28 | NUR ---
Social Work-discharge: Data:EMR reviewed. Pt is on day 4 of hospitalization for alerted mental status per H&P. Pt is medically stable for discharge. PT has cleared pt for home with 24/7 supervision and HH services. and daughter able to provide 24/7 supervision. SW informed Jenelle with [facility] of discharge and faxed in F2F and orders for RN,PT, and ST. Jenelle confirms they can open with pt on Thursday at latest . Pt's family to provide transport home. All updated and agreeable to plan. Assessment:Pt who would benefit from HH. Plan:Pt to discharge home today via POV. F2F and orders faxed into [facility] for RN,PT, and ST. Pt's family to provide transport home. All updated and agreeable to plan. AMINAH Becker
--- NOTE | 2016-12-29 15:55 | NUR ---
Discharge Pt discharged at this time, all belongings gathered and returned to pt, VSS. No complains of confusion, increased pain, SOB or chest discomfort. IV D/Cd intact, tele monitor removed. New prescriptions faxed to the pharmacy. Discharge packet printed and reviewed with pt and family. Pt taken from [facility] by [employer] in wheelchair to be transported home in private vehicle driven by spouse.
--- NOTE | 2016-12-30 03:03 | PCM.DC.MED ---
Discharge Summary Date of Service Dec 29, 2016 Dates of Hospitalization Date of Hospital Admission Dec 25, 2016 at 11:30 Date of Discharge: Dec 29, 2016 Providers: Admitting Physician: Bj Whalen MD Primary Care Physician: Juanito Avelar MD Attending Physician: Bj Whalen MD Diagnosis at Time of Discharge Diagnosis at Time of Discharge TIA with Confusion and Stress Cardiomyopathy Procedures XRay, CTs & MRIs PROCEDURE: X-RAY CHEST ONE VIEW, PORTABLE ([id number]) INDICATIONS: altered mental status TECHNIQUE: One view of the chest was acquired. COMPARISON: [facility], CR, XR CHEST 1VW (PORTABLE), 08/02/2016, 14: 13. FINDINGS: Surgical changes and devices: None. Lungs and pleura: No pleural effusions or pneumothorax. Lungs are clear. Aeration of the lungs is similar to the prior study. There is mild elevation of the right diaphragm. . Mediastinum: Mediastinal contours appear normal. Heart size is normal. There is aortic atherosclerosis Bones and chest wall: No suspicious bony lesions. Degenerative changes of the shoulders and spine are present. Overlying soft tissues appear unremarkable. IMPRESSION: Stable chest. No acute cardiopulmonary process is evident. Dictated by: Marco A Kelly M.D. on 12/25/2016 at 9:04 Approved by: Marco A Kelly M.D. on 12/25/2016 at 9:05 PROCEDURE: CT BRAIN WITHOUT CONTRAST ([id number]) INDICATIONS: Stroke TECHNIQUE: Noncontrast 4.5 mm thick angled axial sections acquired from the foramen magnum to the vertex, with coronal reformats. COMPARISON: [facility], CT, CT BRAIN WO CON, 12/20/2016, 17:52. FINDINGS: Image quality: Excellent. CSF spaces: Basal cisterns are patent. No extra-axial fluid collections. The ventricles are symmetric in size and shape. Brain: No intracranial bleeds or masses. There is moderate cerebral volume loss for age, with resultant ventricular and sulcal prominence. There are moderate periventricular and deep white matter chronic small vessel ischemic changes. There is intracranial internal carotid artery atherosclerosis. Skull and face: Calvarium and visualized facial bones appear intact, without suspicious lesions. Sinuses: Visualized sinuses and mastoids are clear. IMPRESSION: 1. No acute intracranial abnormalities. 2. Cerebral volume loss and chronic microvascular ischemic changes. Dictated by: Lana Charles M.D. on 12/25/2016 at 9:34 Approved by: Lana Charles M.D. on 12/25/2016 at 9:36 PROCEDURE: MRI STROKE PROTOCOL ([id number]) Pre- and post-contrast brain MRI, non-contrast brain MR angiogram, pre- and postcontrast neck MR angiogram INDICATIONS: confusion/possible CVA TECHNIQUE: Brain: Noncontrast axial T1 spin echo, axial T2 fast spin echo, sagittal and axial FLAIR, coronal T2 fast spin echo, axial gradient echo, axial diffusion and ADC through the brain. After the administration of contrast, axial 3D VIBE of the cranial vasculature and brain. Brain MRA: Non-contrast 3-D time of flight MR angiogram, with multiple maximum- intensity-projection (MIP) reformats performed. Neck MRA: Axial and sagittal TruFISP through the neck. Coronal dynamic MR angiogram during administration of contrast in the arterial and venous phases, with 3-dimenstional wqaqzsi-bnhprncwb-upuebafynw (MIP) reformats constructed from subtraction images. COMPARISON: [facility], MR, MR STROKE PROTOCOL, 12/25/2016, 21:36. [facility], CT, CT BRAIN WO CON, 12/25/2016, 9:28. FINDINGS: Image quality: There is mild motion artifact. BRAIN: CSF spaces: There is mild cerebral volume loss with prominence of the ventricles and sulci. Basal cisterns are patent. No extra-axial fluid collections. Brain: Diffusion weighted images demonstrate no acute infarcts. No acute intracranial hemorrhage, mass, or mass effect. There are a few scattered small foci of GRE susceptibility redemonstrated bilaterally predominantly in a subcortical distribution. There are bilateral subcortical and periventricular foci of white matter T2 hyperintensity consistent with moderate chronic small vessel ischemic changes. Brainstem appears normal. Normal intravascular flow voids are present. No abnormal intracranial enhancement. Skull and face: Calvarial marrow signal is normal. Orbits appear normal. Sinuses: Sinuses and mastoids are clear. BRAIN MR ANGIOGRAM: Anterior circulation: Intracranial internal carotid arteries are normal in size and appear patent. The flow within the paired anterior cerebral arteries is patent bilaterally. The flow within the middle cerebral arteries is patent bilaterally. The anterior communicating artery is patent. No high-grade stenoses, occlusions, or aneurysms. Posterior circulation: The visualized portions of the vertebral arteries appear patent and join to form a normal appearing basilar artery. The flow within the posterior cerebral arteries is patent bilaterally. There is persistent circulation on the right, with the right posterior cerebral artery supplied by a posterior communicating artery. No high-grade stenoses, occlusions, or aneurysms. NECK MR ANGIOGRAM: Carotids: Great vessels demonstrate a conventional anatomy as they arise from the aortic arch. The origins of the common carotid arteries appear patent. The calibers and courses of both common carotid arteries are normal. There is mild narrowing of to 50% in the right carotid bulb. The left carotid bulb is widely patent. The subsequent internal carotid arteries demonstrate patent flow bilaterally. There is high-grade narrowing at the origin of the right external carotid artery. Posterior circulation: There is high-grade narrowing at the origin of the right vertebral artery. There is mild narrowing at the origin of the left vertebral artery. More superior portions of both vertebral arteries appear patent, with mild segmental narrowing in the distal right vertebral artery. The vertebral arteries join to form a patent basilar artery. Miscellaneous: Subclavian arteries appear patent. Pre-contrast images through the neck show no soft tissue abnormalities. IMPRESSION: BRAIN MRI: 1. No evidence of infarct or other acute intracranial abnormality. 2. Moderate chronic white matter small vessel ischemic changes and mild cerebral volume loss. 3. 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 BRAIN MR ANGIOGRAM: 1. No high-grade stenosis or occlusion of the central intracranial arteries. NECK MR ANGIOGRAM: 1. High-grade stenosis at the origin of the right vertebral artery redemonstrated. There is mild narrowing at the origin of the left vertebral artery. 2. Mild narrowing in the right carotid bulb up to 50%. Left carotid bulb is widely patent. 3. High-grade stenosis at the origin of the right external carotid artery. The estimate of stenosis included in the report of the imaging study was calculated using the NASCET method Dictated by: Destin Catalan M.D. on 12/28/2016 at 12:17 Approved by: Destin Catalan M.D. on 12/28/2016 at 12:17 Cardiac Echo Impression Echocardiogram Report Name: JACK TEJEDA Study Date: 12/25/2016 Height: 65 in Hospital Exam Location: [facility] Weight: 164 lb Gender: Female BSA: 1.8 m2 : 1930 Age: 86 yrs BP: 211/92 mmHg Reason For Study: CVA Ordering Physician: Performed By: Zeke Ellis Referring Physician: Juanito Avelar Interpretation Summary The left ventricle is normal in size. The ejection fraction is estimated to be 40-45%. Compared to the prior exam, the left ventricular function is reduced. There appears to be severe hypokinesis to akinesis of mid to distal anterior wall, mid to distal septum, apex and the distal inferolateral wall (New). Trabeculae near apex are visualized. No thrombus is observed. The right ventricle is normal in size, thickness and function. There is moderate mitral regurgitation. Compared to the prior echo study, there has been an increase in the severity of mitral regurgitation. There is mild tricuspid regurgitation. Compared to the prior echo exam, there has been an increase in TR severity. The right ventricular systolic pressure is estimated at 38 mmHg assuming a right atrial pressure of 8 mm Hg. Brief History The patient is an 86-year-old pleasant white female history of DVTs, hypertension and diabetes mellitus who was on Plavix after carotid endarterectomy and has taken off over the last year or so. The patient's daughter America states the patient often has to balance and often falls in her backyard while gardening with her . Proximally a week ago patient fell backwards on her patio and hit her head. Came to [facility] emergency room and had x-rays and all x-rays were negative except for one which showed a fracture of her left fifth toe. Patient was in her usual state of health and had normal mentation when going to bed at 10 PM last night. However , this morning she awoke at 5 AM and the difficulty moving her legs to get to the bathroom. Patient then came back to bed and her right leg "would not do anything". Patient yelled for her to get up and help her. remembers helping getting her back into bed.. The patient's noticed that what she was saying did not make any sense. And she continued talking but was "talking funny". The patient's called her daughter America at 6: 45 AM and America drove over to evaluate the situation. She found her mother is continued to say things that "did not make sense". Patient was also seen picking at things and daughter America decided at that point to drive her to schedule [facility] emergency room. In the emergency room the patient was evaluated by Dr. Otoniel Contreras. Patient was found to have a normal CBC, a normal protime, normal electrolytes, with a slightly elevated blood urea nitrogen, still within normal range. Patient was also found to have a normal creatinine and normal troponin level less than 0.010 mcg/L. Patient had a normal urinalysis. Patient EKG showed sinus rate of 67 left ventricular hypertrophy unchanged from prior. Q waves in V1 through V3 also unchanged from prior EKG chest x-ray showed no acute cardiopulmonary disease and CT of the head showed no acute intracranial abnormalities with cerebral volume loss and chronic microvascular ischemic changes. The patient continued to have altered mental status and the patient was brought into the hospital, under the care of the hospitalist service, under observation for further evaluation and treatment Hospital Course The patient is an 86-year-old pleasant white female history of DVTs, hypertension and diabetes mellitus who was on Plavix after carotid endarterectomy and has taken off over the last year or so. The patient's daughter America states the patient often has to balance and often falls in her backyard while gardening with her . Proximally a week ago patient fell backwards on her patio and hit her head. Came to [facility] emergency room and had x-rays and all x-rays were negative except for one which showed a fracture of her left fifth toe. Patient was in her usual state of health and had normal mentation when going to bed at 10 PM last night. However , this morning she awoke at 5 AM and the difficulty moving her legs to get to the bathroom. Patient then came back to bed and her right leg "would not do anything". Patient yelled for her to get up and help her. remembers helping getting her back into bed.. The patient's noticed that what she was saying did not make any sense. And she continued talking but was "talking funny". The patient's called her daughter America at 6: 45 AM and America drove over to evaluate the situation. She found her mother is continued to say things that "did not make sense". Patient was also seen picking at things and daughter America decided at that point to drive her to schedule [facility] emergency room. In the emergency room the patient was evaluated by Dr. Otoniel Contreras. Patient was found to have a normal CBC, a normal protime, normal electrolytes, with a slightly elevated blood urea nitrogen, still within normal range. Patient was also found to have a normal creatinine and normal troponin level less than 0.010 mcg/L. Patient had a normal urinalysis. Patient EKG showed sinus rate of 67 left ventricular hypertrophy unchanged from prior. Q waves in V1 through V3 also unchanged from prior EKG chest x-ray showed no acute cardiopulmonary disease and CT of the head showed no acute intracranial abnormalities with cerebral volume loss and chronic microvascular ischemic changes. The patient continued to have altered mental status and the patient was brought into the hospital, under the care of the hospitalist service, under observation for further evaluation and treatment. # Encephalopathy and slurred speech, present at the time of admission. Active - Possible acute cerebrovascular accident despite negative CT scan. Initial MRI stroke protocol failed to reveal source of patient's symptoms.. - Possible reversible ischemic neurological deficit - Patient was recently taken off Plavix in the last year or so, as she was placed on Plavix after a left carotid endarterectomy. - Consider restarting Plavix depending on MRI findings and carotid Dopplers. - Discussed with neurologist Dr. Virgil Lechuga and he is unable to see the patient as he is not sap portal consultant. However, he recommends repeating the MRI in 48 hours to 72 hours to see if the patient has indeed had a stroke. In some cases the initial MRI will be negative and follow-up will show the defect. - Repeat MRI stroke protocol was performed this a.m. Showed the following: " No evidence of infarct or other acute intracranial abnormality. Moderate chronic white matter small vessel ischemic changes and mild cerebral volume loss. 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 Will order serum protein electrophoresis and urine protein electrophoresis. Recommend neurology consult and follow-up as an outpatient if not available in a.m. - Patient has a slightly elevated serum ammonia level, the significance of which is uncertain. However will prescribe lactulose at a low dose daily and see if this helps improve the patient's mental status. # Significant peripheral vascular occlusive disease, present at the time of admission. Active - Patient has had a left carotid endarterectomy - Patient had a angioplasty of what sounds like the right iliac artery which was complicated by tear in the artery a large retroperitoneal hematoma with temporary hemorrhagic shock. Patient received 7 pints of blood and suffered complications of deep venous thrombosis. - We will repeat carotid Dopplers - MRI stroke protocol showed the following the MRA: " No high-grade stenosis or occlusion of the central intracranial arteries. High-grade stenosis at the origin of the right vertebral artery redemonstrated. There is mild narrowing at the origin of the left vertebral artery. Mild narrowing in the right carotid bulb up to 50%. Left carotid bulb is widely patent. High-grade stenosis at the origin of the right external carotid artery." - Patient is currently not on a statin and Dr. Villalobos is recommended Crestor for patient. # History of esophageal spasms and this is complicating her ability to swallow according to speech therapy, present on admission this patient was seen in the ER by speech therapy. Active - Continue Imdur as nitroglycerin appears to alleviate the patient's esophageal spasms. - We may want to add when necessary nitroglycerin sublingual - We will consider GI evaluation. - We will consider modified barium swallow. - Appreciate speech therapy consult and will ask him to continue to follow. # Diabetes mellitus, present on admission. Active - Check serum glucose before meals and at bedtime. - Heart healthy consistent carbohydrate diet - Sliding-scale insulin coverage. # Uncontrolled Hypertension, present on admission. Active systolic blood pressures over 200 - We allowed permissive hypertension for 24 hours after patient's cerebrovascular event. - We will give labetalol for a systolic blood pressure greater than 220 or diastolic blood pressure greater than 110 - We will then begin to control blood pressure more aggressively today with patient's home regimen of hydralazine and metoprolol. Patient states that after her left carotid endarterectomy her blood pressure was extremely hard to control in the systolic blood pressure was often over 200. - Dr. Villalobos was kind enough to see the patient in consultation today and recommend the following: " I think her blood pressure probably could be well controlled on a combination of metoprolol 100 mg b.i.d., hydralazine 50 mg t.i.d. (not q.i.d.), isordil 20 mg t.i.d. with the addition of a diuretic if needed. If this is well tolerated but not successful in adequately controlling her blood pressure then I would recommend increasing the metoprolol to 150 mg b.i.d. if tolerated. # Patient appears to have had a previous myocardial infarction and appears to have chronic systolic congestive heart failure with an ejection fraction of 40- 45% on echocardiogram, present on admission. Active - Patient appears to have evidence of ischemic cardiomyopathy. We have ordered serial troponins. These were slightly positive and have trended downward and normalized. - Check BNP - Check chest x-ray - We will obtain cardiology consultation. I have discussed the case with Dr. Villalobos today. She is a very strong family history of ischemic cardiac disease as both her parents and all 10 of her siblings from myocardial infarctions. - Dr. Villalobos believes that the patient has a stress cardiomyopathy and will control her blood pressure as he recommends above and add Crestor to her medication right regimen and patient is to follow-up in his office in couple of weeks to reevaluate patient. Appreciate Dr. Villalobos's time and extra expertise. Disposition: As patient's mental status appears to be back to baseline, and the patient is physically back to baseline, the patient will be discharged home. The patient and patient's family are in very much agreement with this plan recommend follow-up with neurology, cardiology and possibly gastroenterology. I have been concerned the patient may have amyloidosis and have ordered a serum protein and urine protein electrophoresis which results are pending. Exam Vital Signs (Last) Date Time Temp Pulse Resp B/P Pulse Ox O2 Delivery O2 Flow Rate FiO2 12/29/16 13:44 36.6 60 18 115/65 96 Room Air Exam General: Patient is sitting up in a bedside chair. She is in no apparent distress. She is more alert and less confused than yesterday. HEENT: Head is atraumatic and normocephalic. Eyes: Pupils are equally round and reactive to light and accommodation. Extraocular muscles are intact. Sclera are white, anicteric. Subconjunctival mucosa is pink. Ears and nose are unremarkable. Oropharynx: There is no mucosal lesions, there is no thrush, there is no pharyngitis. Neck: Is supple, there are no nodes, or masses or tenderness. Chest: Is clear to auscultation and percussion. There are no rales, rhonchi, wheezes or rubs. Heart: Rate, rhythm is regular. There is a grade 1/6 systolic ejection murmur heard best at left sternal border. There is no rub or gallop. Abdomen: Good bowel sounds are present. Abdomen is obese, soft, nontender, no organomegaly or masses were appreciated. Extremities: Are symmetrical and well perfused. There is no edema, there is no cellulitis, no rash. Neurologic: There are no focal neurological deficits. Cranial nerves II through XII are intact. There are no sensory or motor deficits. Patient is more alert and oriented today. Psychiatric: Patients mood is calm and she shows no sign of agitation. Genital: Deferred Rectal: Deferred Test 12/25/16 09:35 12/25/16 10:11 12/25/16 10:15 12/27/16 05:18 Prothrombin Time 9.9sec (8.1-12.5) Prothromb Time International Ratio 0.93ratio Urine Color Straw (YELLOW) Urine Appearance Clear (CLEAR,HAZY) Urine pH 7.0 (5.0-8.0) Urine Specific [place] 1.010 (1.003-1.035) Urine Protein Negativemg/dL (NEG,TRACE) Urine Glucose (UA) Negativemg/dL (NEGATIVE) Urine Ketones Negativemg/dL (NEGATIVE) Urine Occult Blood Negative (NEGATIVE) Urine Nitrite Negative (NEGATIVE) Urine Bilirubin Negative (NEGATIVE) Urine Urobilinogen Normalmg/dL (NORMAL) Urine Leukocyte Esterase Negative (NEGATIVE) Urine RBC 0-2/hpf (0-2) Urine WBC 0-5/hpf (0-5) Urine Epithelial Cells Occasional/hpf (NONE-MOD) Urine Crystals None seen (NONE SEEN) Urine Bacteria None/hpf (NONE-FEW) Urine Hyaline Casts None/lpf (NONE) Urine Granular Casts None seen (NONE SEEN) Urine Waxy Casts None seen (NONE SEEN) Urine Red Blood Cell Casts None seen (NONE SEEN) Urine White Blood Cell Casts None seen (NONE SEEN) Urine Mucus None seen (None Seen) Urine Trichomonas None seen (NONE SEEN) Urine Yeast None (NONE SEEN) Urinalysis Comment Transitional epi Urine Culture Reflexed Not indicated Lactic Acid Level 1.8mmol/L (0.4-2.0) Troponin T 0.010ug/L (0.0-0.011) Triglycerides Level 118mg/dL (0-149) Cholesterol Level 188mg/dL (100-199) LDL Cholesterol, Calculated 131.400mg/dL (0-99) VLDL Cholesterol 23.600mg/dL HDL Cholesterol 33mg/dL (>39) Cholesterol/HDL Ratio 5.70 (0.0-4.4) Test 12/28/16 06:00 12/28/16 09:52 12/29/16 00:39 12/29/16 05:45 Hepatitis A IgM Antibody Negative (Negative) Hepatitis B Surface Antigen Negative (Negative) Hepatitis B Core IgM Antibody Negative (Negative) Hepatitis C Antibody <0.1s/co ratio (0.0-0.9) Hepatitis C Comment Comment (.) Ammonia 56ug/dL (18-53) White Blood Count 6.3th/mm3 (3.8-10.1) Red Blood Count 3.86mil/mm3 (3.90-5.20) Hemoglobin 12.4g/dL (12.0-15.6) Hematocrit 38.2% (35.0-46.0) Mean Corpuscular Volume 99.0fL (81-100) Mean Corpuscular Hemoglobin 32.1pg (27.0-35.0) Mean Corpuscular Hemoglobin Concent 32.5% (32.0-37.0) Red Cell Distribution Width 12.5% (12.3-15.4) Platelet Count 166bil/L (150-400) Neutrophils (%) (Auto) 58.9% (40-74) Lymphocytes (%) (Auto) 23.5% (14-46) Monocytes (%) (Auto) 10.6% (4-12) Eosinophils (%) (Auto) 6.0% (0-5) Basophils (%) (Auto) 0.8% (0-3) Sodium Level 141mEq/L (134-144) Potassium Level 3.8mEq/L (3.5-5.2) Chloride Level 103mEq/L (97-108) Carbon Dioxide Level 23mmol/L (18-29) Blood Urea Nitrogen 16mg/dL (8-27) Creatinine 0.71mg/dL (0.57-1.00) Estimat Glomerular Filtration Rate 112mL/min (>59) Glucose Level 106mg/dL (60-99) Calcium Level 8.9mg/dL (8.5-10.1) Magnesium Level 2.1mg/dL (1.6-2.6) Total Bilirubin 0.4mg/dL (0.0-1.2) Aspartate Amino Transf (AST/SGOT) 23U/L (0-50) Alanine Aminotransferase (ALT/SGPT) 13U/L (0-32) Alkaline Phosphatase 65U/L (25-165) Total Protein 5.5g/dL (6.4-8.4) Procalcitonin 0.03ng/mL (0.00-0.08) Discharge Medications Discharge Medications Aspirin (Aspirin) 81 Mg Tablet 81 MG PO DAILY (Reported) Cholecalciferol (Vitamin D3) (Vitamin D3) 1,000 Unit Tab.chew 1,000 UNIT PO DAILY (Reported) Citalopram (Citalopram) 10 Mg Tablet 10 MG PO DAILY (Reported) Gabapentin (Gabapentin) 300 Mg Capsule 600 MG PO TID (Reported) Hydralazine (Hydralazine) 25 Mg Tablet 50 MG PO TID Prescribed by: ANDRADE WHALEN MD Isosorbide DN (Isosorbide DN) 20 Mg Tablet 20 MG PO TID Prescribed by: ANDRADE WHALEN MD Lactulose (Lactulose) 20 Gm/30 Ml Solution 10 GM PO DAILY Prescribed by: ANDRADE WHALEN MD Metoprolol Tartrate (Metoprolol Tartrate) 50 Mg Tablet 100 MG PO BID (Reported) Multivitamin (Once Daily) 1 Each Tablet 1 EACH PO DAILY (Reported) Nortriptyline (Nortriptyline) 10 Mg Capsule 10 MG PO HS (Reported) Pantoprazole DR (Pantoprazole DR) 40 Mg Tablet.dr 40 MG PO DAILY (Reported) Rosuvastatin Calcium (Crestor) 10 Mg Tablet 10 MG PO HS Prescribed by: ANDRADE WHALEN MD As needed Acetaminophen (Acetaminophen) 325 Mg Tablet 325 MG PO DAILY PRN PRN For Pain ( Reported) Hydrocodone-Acetaminophen 10-325 mg (Hydrocodone-Acetaminophen 10-325 mg) 1 Each Tablet 1 TABLET PO Q6H PRN PRN For Pain (Reported) Nitroglycerin SL (Nitrostat) 0.4 Mg Tablet 0.4 MG SL Q5MIN PRN PRN For Chest Pain Prescribed by: IRINA THOMPSON MD Ondansetron (Ondansetron) 4 Mg Tablet 4 MG PO TID PRN PRN For Nausea (Reported) Followup Plan Disposition: Patient is being discharged home with her family. Discharge Diet: Heart Healthy Discharge Activity: No restrictions (Patient to resume usual activities gradually as tolerated.) Follow-up Provider: Juanito Avelar MD Follow-up with PCP in: 1 week Provider: Hussein Villalobos MD Follow-up in: 2 weeks Mid-level Provider: Virgil Lechuga MD Follow-up with Mid-level in: 2 weeks (For Neurology Evaluation.) Time spent Time spent on discharging this patient was greater than 35 minutes, over half of which was involved in counseling and coordination of care. Bj Whalen MD Dec 30, 2016 03:02
== END 2016-12-29 15:55 | disposition home health service (06) | DRG 71 ==
LOC: SED 09:06 → OBSVTOIN 11:30 → MPC 11:30
PROVIDERS: ADMIT Internal Medicine Infectious Disease; ATTEND Internal Medicine Infectious Disease
DX: G93.40 Encephalopathy, unspecified (principal); I50.22 Chronic systolic (congestive) heart failure; I51.81 Takotsubo syndrome; G45.9 Transient cerebral ischemic attack, unspecified; E11.9 Type 2 diabetes mellitus without complications; I10 Essential (primary) hypertension; Z86.718 Personal history of other venous thrombosis and embolism; Z79.01 Long term (current) use of anticoagulants; I73.9 Peripheral vascular disease, unspecified

== ENCOUNTER 2017-02-28 18:54 | Emergency (ER) | payer MEDICARE, OTHER ==
[~2017-02-28] VITALS: Ht 165.1 cm; Wt 70.5 kg
[~2017-02-28 18:54] MED LIST changes: -CLOP75TA28 PO; -COD1CAPS16 PO; +CREST10T PO; -FE F PO; -HYDR50TA3 PO; -ISOS10TA8 PO; +ISOS20TA7 PO; +LACT10SO60 PO; -METO25TA6 PO; +METO50TA3 PO; +NORT10CA PO; +ONDA-53 PO; -POLY17PO2 PO; -SCOP1PAT TRANSDERM; -VITA600C3 PO
[2017-02-28 19:04] VITALS: BP 10/98; PULSE 135; RESP 20; O2SAT 96
--- NOTE | 2017-02-28 19:26 | ED.REPORT ---
HPI-Chest Pain 40 and Over Date of Service Feb 28, 2017 ED Provider: Akiko Cast MD Pt is a 87 year old female with a history of DM and HTN who presents to the ED complaining of intermittent non-radiating worsening chest pain onset 3 days ago. She c/o associated shoulder blade pain bilaterally, SOB, back pain, and nausea. She denies numbness, weakness, extremity pain, extremity swelling, and abdominal pain. Pt reports that her current chest pain was onset at 17:30. She denies her chest pain radiating to her back. The pt reports that her chest pain feels "heavy," rating it as a 8/10. Nursing Notes Stated Complaint: HPB,RAPID HEART RATE,CHEST PAIN,BACK PAIN Chief Complaint: Chest Pain Nursing Notes Reviewed: Yes Allergies: Coded Allergies: lisinopril (Verified Allergy, Mild, extremity aching, 02/28/17) pravastatin (Verified Allergy, Mild, extremity aching, 12/25/16) Cephalosporins (Verified Allergy, Unknown, 12/25/16) Penicillins (Verified Allergy, Unknown, 12/25/16) TAPE (Verified Allergy, Unknown, 12/25/16) amlodipine (Verified Allergy, Unknown, 02/28/17) diltiazem (Verified Allergy, Unknown, 02/28/17) losartan (Verified Allergy, Unknown, 12/25/16) nifedipine (Verified Allergy, Unknown, 12/25/16) olmesartan medoxomil (Verified Allergy, Unknown, 02/28/17) trazodone (Verified Allergy, Unknown, 12/25/16) Contrast Media (Verified Adverse Reaction, Intermediate, fainting, 02/28/17 ) has taken dye when given "something beforehand" codeine (Verified Adverse Reaction, Intermediate, Nausea,Vomiting, 12/25/16 ) hydromorphone (Verified Adverse Reaction, Mild, CONFUSION, ANXIETY, RESTLESSNESS, 02/28/17) Scheduled Aspirin (Aspirin) 81 Mg Tablet 81 MG PO DAILY Cholecalciferol (Vitamin D3) (Vitamin D3) 1,000 Unit Tab.chew 1,000 UNIT PO DAILY Citalopram (Citalopram) 10 Mg Tablet 10 MG PO DAILY Gabapentin (Gabapentin) 300 Mg Capsule 600 MG PO TID Hydralazine (Hydralazine) 25 Mg Tablet 50 MG PO TID Isosorbide DN (Isosorbide DN) 20 Mg Tablet 20 MG PO TID Lactulose (Lactulose) 20 Gm/30 Ml Solution 10 GM PO DAILY Metoprolol Tartrate (Metoprolol Tartrate) 50 Mg Tablet 100 MG PO BID Multivitamin (Once Daily) 1 Each Tablet 1 EACH PO DAILY Nortriptyline (Nortriptyline) 10 Mg Capsule 10 MG PO HS Pantoprazole DR (Pantoprazole DR) 40 Mg Tablet.dr 40 MG PO DAILY Rosuvastatin Calcium (Crestor) 10 Mg Tablet 10 MG PO HS Scheduled PRN Acetaminophen (Acetaminophen) 325 Mg Tablet 325 MG PO DAILY PRN PRN For Pain Hydrocodone-Acetaminophen 10-325 mg (Hydrocodone-Acetaminophen 10-325 mg) 1 Each Tablet 1 TABLET PO Q6H PRN PRN For Pain Nitroglycerin SL (Nitrostat) 0.4 Mg Tablet 0.4 MG SL Q5MIN PRN PRN For Chest Pain Ondansetron (Ondansetron) 4 Mg Tablet 4 MG PO TID PRN PRN For Nausea General Time Seen by MD: 19:26 Chief Complaint Chest pain Hx Obtained From: Patient Arrived By: Walk-in Sudden in Onset?: No Onset Occurred: 1 - 4 hours ago Symptom Duration: Since onset Location: : Substernal Quality: Painful Radiation: : Does not radiate Migration/Movement: Reports: None Severity: Current: Moderate Severity: Maximum: Moderate Recent Healthcare: No recent doctor visit, No recent hospitalization Similar Sx Previous: No Past Medical History Past Medical History Notes: Admit in June 2015 for CP/weakness, cardiac w/u negative Patient is FULL CODE Past Medical History Significant peripheral vascular disease (patient status post angiography and possible angioplasty in 2008, reportedly complicated by large retroperitoneal hematoma and temporary shock) with DVT's Carotid stenosis h/o gout H/o esophageal spasms for which she takes occassional nitroglyerin Skin cancer. Reports: Diabetes mellitus, Hypertension Past Surgical History Benign neck mass removed in April 2015 Cardiac cath October 2013 with no occlusive obstructive disease Left carotid endarterectomy at [facility] Colectomy in 1994 for diverticulitis Cholecystectomy Hysterectomy Bladder sling in 1999 Back surgery 2004 Appendectomy 194 Ectopic status post oophorectomy in 1951 Thyroid surgery Reports: Carotid endarterectomy, Cataract surgery, Tonsillectomy Family History Family hx of cardiac disease Smoking History Never Smoker Social History Alcohol Use: Denies alcohol use Drug Use: Denies drug use Other Social History: Good social support, , Local resident Ambulatory Status Independent Review of Systems + Shoulder pain blade bilaterally Constitutional: Denies: Weakness - generalized Respiratory: Reports: Shortness of breath Cardiovascular: Reports: Chest pain GI: Reports: Nausea, Denies: Abdominal pain Musculoskeletal: Reports: Back pain, Denies: Extremity pain, Extremity swelling Neurologic: Denies: Numbness Complete sys rev & neg: except as marked. Physical Exam Initial Vital Signs Vital Signs (First) Date Time Temp Pulse Resp B/P Pulse Ox O2 Delivery O2 Flow Rate FiO2 02/28/17 19:04 36.6 135 20 96 Room Air Initial VS: Reviewed, Vital signs abnormal Head / Eyes: Atraumatic, Normocephalic Neck: Supple, Full range of motion Extremities: Vascular intact, Neuro intact Skin: Warm, Dry, No cyanosis Neurologic: Alert, Oriented, Nonfocal Psychiatric: Mood/affect normal, Behavior normal General/Constitutional: Awake, Alert Respiratory / Chest: Atraumatic, Breath sounds NL, Breath sounds = bilat Cardiovascular: Regular rhythm, Heart sounds NL Heart Rate / Rhythm: Positive: Tachycardia Lower Ext Edema: Positive: Bilateral 2+ Equal radial pulses Abdomen: Atraumatic, Soft Generalized abdominal discomfort Interpretation & Diagnostics Lab Results Interpretation Result Diagram: 02/28/17192502/28/171925 Test 02/28/17 19:26 02/28/17 22:12 White Blood Count 8.6th/mm3 (3.8-10.1) Red Blood Count 4.85mil/mm3 (3.90-5.20) Hemoglobin 15.2g/dL (12.0-15.6) Hematocrit 46.4% (35.0-46.0) Mean Corpuscular Volume 95.7fL (81-100) Mean Corpuscular Hemoglobin 31.3pg (27.0-35.0) Mean Corpuscular Hemoglobin Concent 32.8% (32.0-37.0) Red Cell Distribution Width 13.5% (12.3-15.4) Platelet Count 186bil/L (150-400) Neutrophils (%) (Auto) 69.2% (40-74) Lymphocytes (%) (Auto) 19.6% (14-46) Monocytes (%) (Auto) 9.3% (4-12) Eosinophils (%) (Auto) 1.4% (0-5) Basophils (%) (Auto) 0.3% (0-3) Sodium Level 142mEq/L (134-144) Potassium Level 3.9mEq/L (3.5-5.2) Chloride Level 99mEq/L (97-108) Carbon Dioxide Level 27mmol/L (18-29) Blood Urea Nitrogen 26mg/dL (8-27) Creatinine 0.81mg/dL (0.57-1.00) Estimat Glomerular Filtration Rate 96mL/min (>59) Glucose Level 134mg/dL (60-99) Calcium Level 10.1mg/dL (8.5-10.1) Magnesium Level 1.9mg/dL (1.6-2.6) Total Bilirubin 0.4mg/dL (0.0-1.2) Aspartate Amino Transf (AST/SGOT) 33U/L (0-50) Alanine Aminotransferase (ALT/SGPT) 24U/L (0-32) Alkaline Phosphatase 79U/L (25-165) Total Protein 7.7g/dL (6.4-8.4) Albumin 4.9g/dL (3.4-5.0) Hold Ron Top Tube Received (Received) Troponin T 0.010ug/L (0.0-0.011) ECG Interpretation ECG Interpretation: Sinus tachycardia with a rate of 118 Supraventricular bigeminy LVH with secondary repolarization abnormality Anterior infarct, old Time: 19:23 Interpreted by: ED physician X-Ray Chest Interpretation Chest Xray Interpretation: IMPRESSION: Chronic mild elevation of the right hemidiaphragm. Linear scarring or atelectasis left lung base near the costophrenic sulcus. Left-sided lateral rib fractures again noted. A source of new chest pain is not found. Dictated by: Kj Guerrero M.D. on 02/28/2017 at 19:53 View: Portable, 1 view Interpretation / Wet Read by: Interpret - Radiologist CT Abd / Pelvis Interpretation IMPRESSION: The absence of both intravenous and oral contrast diminishes quality of visualization but no acute disease is found in the normal appearance of the solid and hollow organs for age is present. There is noted to be be a mild degree of colonic obstipation. Dictated by: Kj Guerrero M.D. on 02/28/2017 at 21:10 Study type: Abdominal CT no contrast Interpretation / Wet Read by: Interpret - Radiologist Re-Eval/Medical Decision Med Decision/Clinical Course The patient has a known history of hypertension and presents with chest and back pain, I was initially concerned for dissection. It was then found out that the patient has not been taking her metoprolol for the past couple of days. She was feeling improved after nitroglycerin and metoprolol. Her daughter remembered she had something similar when she was not taking her hydralazine. CT is negative for dissection and she does not have acute EKG changes concerning for ischemia. She will have a repeat troponin. The patient's repeat troponin remains negative and the patient remains asymptomatic. I stressed to her the need to take her blood pressure medications every day. Source of Hx: Old records Time of Eval: 19:56 Re-Evaluation/Progress Note: Pt rechecked. She was given her first Nitro. Her chest pain decreased from an 8 to a 5. All questions addressed. Time of Eval: 20:49 Patient Status: Condition resolved Re-Evaluation/Progress Note: Pt rechecked. Pt is feeling better and rates her pain as a 2/10. Her family reports that the pt did not get a complete dose of Metropolol today and possibly yesterday. Informed pt of plan to treat her missed dose. All questions addressed. Time of Eval: 23:03 Patient Status: Condition resolved Re-Evaluation/Progress Note: Pt rechecked. Informed pt of plan for discharge. Pt understands and agrees with plan for discharge. F/U instructions and RTER warnings given. All questions addressed. Counseled Regarding: Diagnosis, Lab results, Need for follow-up, When/why to return to ED Discharge & Departure Primary Impression: Chest pain Chest pain type: unspecified Qualified Code: R07.9 - Chest pain, unspecified Additional Impression: Hypertensive emergency Disposition: Home Discharge Condition All VS Reviewed: Yes Condition: Stable Patient Instructions: Chest Pain (ED), Hypertension (ED) Additional Instructions: Thank you for trusting us with your care today. Make sure you take your medication every day at the same time. Not doing so can put stress on your heart can can cause you to have a heart attack. Call your primary care provider on Thursday for a follow up appointment next week. Return to the emergency department for any new or concerning symptoms. Referrals: Juanito Avlear MD (PCP) Scribe Attestation Portions of this note were transcribed by Priya Hanley. I, Dr. Cast personally performed the history, physical exam and medical decision-making; I reviewed and confirmed the accuracy of the information in the transcribed note. Signed by : Skylar Barnes, 02/28/17. copies to: Juanito Avelar MD, Jena M MD Feb 28, 2017 19:26 Priya Jones Feb 28, 2017 19:31
[2017-02-28] MEDS ORDERED: Labetalol 5 mg/mL 20 mL Inj IVPUSH ONE (19:35)
[2017-02-28 19:40] LABS: BASOPHILS % (AUTO) 0.3 % (0-3); EOSINOPHILS % (AUTO) 1.4 % (0-5); MONOCYTES % (AUTO) 9.3 % (4-12); Mean Corpuscular Hemoglobin 31.3 pg (27.0-35.0); Mean Corpuscular Volume 95.7 fL (81-100); NEUTROPHILS % (AUTO) 69.2 % (40-74); Platelet Count 186 bil/L (150-400)
[2017-02-28] MEDS ORDERED: MeTOProlol 1 mg/mL 5 mL Inj IVPUSH ONE (19:55)
--- NOTE | 2017-02-28 19:55 | DRSVH ---
PROCEDURE: X-RAY CHEST ONE VIEW, PORTABLE ([id number]) INDICATIONS: chest pain TECHNIQUE: One view of the chest was acquired. COMPARISON: None. FINDINGS: Surgical changes and devices: None. Lungs and pleura: No pleural effusions or pneumothorax. Lungs are clear. Mediastinum: Mediastinal contours appear normal. Heart size is normal. Bones and chest wall: No suspicious bony lesions. Overlying soft tissues appear unremarkable. IMPRESSION: Chronic mild elevation of the right hemidiaphragm. Linear scarring or atelectasis left lung base near the costophrenic sulcus. Left-sided lateral rib fractures again noted. A source of n ew chest pain is not found. Dictated by: Kj Guerrero M.D. on 02/28/2017 at 19:53 Approved by: Kj Guerrero M.D. on 02/28/2017 at 19:54
[2017-02-28 20:14] VITALS: BP 175/87; PULSE 87; RESP 16; O2SAT 98
[2017-02-28 20:24] LABS: TROPONIN T < 0.010 ug/L (0.0-0.011)
--- NOTE | 2017-02-28 21:14 | DRSVH ---
PROCEDURE: CT CHEST AND ABDOMEN WITHOUT CONTRAST ([id number]) INDICATIONS: chest and back pain TECHNIQUE: After the administration of oral contrast, 5 mm thick sections acquired from the pulmonary apices to the iliac crests. 5 mm thick coronal and sagittal reformats acquired, with additional 7 mm coronal M IP reformats through the lungs. For radiation dose reduction, the following was used: automated exp osure control, adjustment of mA and/or kV according to patient size. COMPARISON: [facility], CT, CHEST/ABD WO CON (PN), 11/22/2013, 12:36. FINDINGS: Image quality: Excellent. CHEST: Lungs and pleura: No acute pulmonary opacities. No pleural effusions or pneumothorax. Central and peripheral airways are patent and normal in caliber. Mediastinum: Heart size is normal. No pericardial effusion. No mediastinal adenopathy by size crit eria. Thoracic aorta and central pulmonary arteries are normal in size. Esophagus is normal in syed jamshid. No hiatal hernia. Chest wall: No axillary or supraclavicular adenopathy by size criteria. Thyroid gland is not well s een by this noncontrast technique. ABDOMEN: Solid organs: Liver and spleen are normal in size. Gallbladder is not visualized but no surgical me tallic clips are seen at the gallbladder fossa. Perhaps prior cholecystectomy has been performed wit hout metallic surgical clips.. Pancreas is normal in contours. No adrenal nodules. Both kidneys ar e normal in size, without hydronephrosis or nephrolithiasis. Peritoneum and bowel: Small and large bowel loops are normal in caliber and wall thickness. No free fluid or air. Nodes and vessels: No retroperitoneal or mesenteric adenopathy by size criteria. Aorta and inferior vena cava are normal in caliber. Miscellaneous: No ventral hernias. IMPRESSION: The absence of both intravenous and oral contrast diminishes quality of visualization bu t no acute disease is found in the normal appearance of the solid and hollow organs for age is presen t. There is noted to be be a mild degree of colonic obstipation. Dictated by: Kj Guerrero M.D. on 02/28/2017 at 21:10 Approved by: Kj Guerrero M.D. on 02/28/2017 at 21:13
[2017-02-28 21:30] VITALS: BP 178/83; PULSE 109; RESP 23; O2SAT 95
[2017-02-28 21:51] LABS: Magnesium 1.9 mg/dL (1.6-2.6)
[2017-02-28 23:04] VITALS: BP 166/80; PULSE 77; RESP 15; O2SAT 95
== END 2017-02-28 23:22 | disposition home or self-care (01) ==
LOC: SED 18:54
DX: R07.2 Precordial pain (principal); I16.1 Hypertensive emergency; M54.9 Dorsalgia, unspecified; R10.84 Generalized abdominal pain; I10 Essential (primary) hypertension; E11.9 Type 2 diabetes mellitus without complications; Z98.890 Other specified postprocedural states; Z90.710 Acquired absence of both cervix and uterus; Z90.49 Acquired absence of other specified parts of digestive tract; Z79.82 Long term (current) use of aspirin; Z88.0 Allergy status to penicillin; Z88.1 Allergy status to other antibiotic agents; Z88.5 Allergy status to narcotic agent; Z88.8 Allergy status to other drugs, medicaments and biological substances; Z91.041 Radiographic dye allergy status; Z91.048 Other nonmedicinal substance allergy status